=== PATIENT | male | born 1930 | race Caucasian/White ===

== ENCOUNTER 2017-10-14 13:52 | Inpatient (IN) | payer OTHER ==
[2017-10-14] MEDS ORDERED: NA CHLORIDE 0.9% 1,000 ML ONE (14:30)
--- NOTE | 2017-10-14 15:28 | RAD REPORT ---
EXAM DESCRIPTION: RAD - Chest Single View - 10/14/2017 2:34 pm CLINICAL HISTORY: COUGH Chest pain. COMPARISON: Chest Pa And Lat (2 Views) dated 01/22/2017; Chest Single View dated 09/18/2016; Chest Si ngle View dated 09/15/2016; Chest Single View dated 09/13/2016 FINDINGS: Portable technique limits examination quality. The lungs are mildly emphysematous but grossly clear The heart is normal in size. Single lead pacer d evice is in place. IMPRESSION: Mild COPD.
[2017-10-14 15:38] LABS: Absolute Lymphocytes (CBC) 0.4 K/uL (0.7-4.9); Absolute Monocytes 0.3 K/uL (0.1-1.3); Absolute Neutrophil 6.5 K/uL (1.8-8.0); Basophils % 0.3 % (0-1.3); Eosinophils % 0.2 % (0-4.4); Hematocrit 41.8 % (39.6-49.0); Lymphocytes % 4.9 % (15.3-44.8); MCH 32.2 pg (27.0-35.0); MCV 96.4 fL (80-100); MPV 9.7 fL (7.6-11.3); Monocytes % 3.8 % (3.3-12.3); Protime INR 1.07; RBC Red Blood Cell Count 4.34 M/uL (4.33-5.43)
--- NOTE | 2017-10-14 15:49 | ER ---
Nurse's Notes [facility] Name: Dez Lovett Age: 87 yrs Sex: Male : 1930 Arrival Date: 10/14/2017 Time: 13:54 Bed 24 Private MD: Mono Wheeler Diagnosis: Type 2 diabetes mellitus;Weakness;Vomiting;Chronic obstructive pulmonary disease, unspecified;Acute pancreatitis;Unspecified kidney failure;Cholelithiasis;Cholecystitis Presentation: 10/14 14:09 Presenting complaint: Patient states: vomiting, nausea, high blood sugar at home. ch started yesterday afternoon/evening. bgl at home was over 200. Transition of care: patient was not received from another setting of care. Onset of symptoms was October 13, 2017. Risk Assessment: Do you want to hurt yourself or someone else? Patient reports no desire to harm self or others. Initial Sepsis Screen: Does the patient meet any 2 criteria? No. Patient's initial sepsis screen is negative. Does the patient have a suspected source of infection? No. Patient's initial sepsis screen is negative. Care prior to arrival: None. 14:09 Method Of Arrival: Ambulatory 14:09 Acuity: GOYO 3 Triage Assessment: 14:12 General: Appears in no apparent distress. comfortable, Behavior is calm, cooperative, ch appropriate for age. Pain: Denies pain. Historical: - Allergies: 14:12 No Known Allergies; - Home Meds: 14:12 allopurinol 300 mg Oral tab [Active]; Furosemide Oral [Active]; Glipizide Oral ch [Active]; losartan Oral three times a week [Active]; aspirin 81 mg Oral chew 1 tab once daily [Active]; - PMHx: 14:12 Diabetes - NIDDM; Gout; Hypertension; ch - PSHx: 14:12 pacemaker; cataract; skin cancer; - Immunization history:: Adult Immunizations up to date. - Social history:: Smoking status: Patient/guardian denies using tobacco. - Ebola Screening: : Patient negative for fever greater than or equal to 101.5 degrees Fahrenheit, and additional compatible Ebola Virus Disease symptoms Patient denies exposure to infectious person Patient denies travel to an Ebola-affected area in the 21 days before illness onset No symptoms or risks identified at this time. - Family history:: not pertinent. Screenin:00 Abuse screen: Denies threats or abuse. Denies injuries from another. Nutritional kr2 screening: No deficits noted. Tuberculosis screening: No symptoms or risk factors identified. Fall Risk IV access (20 points). Assessment: 15:00 General: Appears in no apparent distress. comfortable, well groomed, well developed, kr2 well nourished, Behavior is calm, cooperative, appropriate for age. Pain: Denies pain. Neuro: Level of Consciousness is awake, alert, obeys commands, Oriented to person, place, time, situation. Cardiovascular: Capillary refill < 3 seconds in bilateral fingers Patient's skin is warm and dry. Respiratory: Airway is patent Respiratory effort is even, unlabored, Respiratory pattern is regular, symmetrical. GI: Abdomen is round non-distended, Bowel sounds present X 4 quads. Abd is soft and non tender X 4 quads. Reports nausea, vomiting, since this morning. : Denies burning with urination. EENT: Nares are clear bilaterally Oral mucosa is moist. Derm: Skin is fragile, with poor turgor Multiple small scabs to bilateral arms. Musculoskeletal: Circulation, motion, and sensation intact. 16:00 Reassessment: Assisted patient to bathroom, weakness and SOB noted with little kr2 exertion. Recovers quickly with rest. 16:29 Reassessment: Patient appears in no apparent distress at this time. Patient and/or kr2 family updated on plan of care and expected duration. Pain level reassessed. Patient is alert, oriented x 3, equal unlabored respirations, skin warm/dry/pink. Patient denies pain at this time. 17:25 Reassessment: Patient vomiting, change in mental status, unable to follow commands, kr2 garbled speech. Dr. Bahena at bedside. CT scan ordered. I escorted patient to CT via stretcher on O2 at [address] Whitten also updated. Blood glucose 177. 17:37 Reassessment: Patient returned to room, monitoring on, O2 in place. No distress. kr2 17:57 Reassessment: Patient appears in no apparent distress at this time. Patient and/or kr2 family updated on plan of care and expected duration. Pain level reassessed. Oriented to person and place, unable to verbalize birthdate. 19:28 Reassessment: Patient appears in no apparent distress at this time. Patient and/or kr2 family updated on plan of care and expected duration. Pain level reassessed. Family remains at bedside Patient denies pain at this time. Vital Signs: 14:12 BP 139 / 68; Pulse 69; Resp 20; Temp 99.7(O); Pulse Ox 98% on R/A; Weight 97.07 kg; ch Height 5 ft. 11 in. (180.34 cm); Pain 0/10; 15:30 BP 135 / 38; Pulse 68; Resp 17; Pulse Ox 97% on R/A; kr2 16:30 BP 120 / 69; Pulse 77; Resp 20; Pulse Ox 96% on R/A; kr2 17:40 BP 109 / 66; Pulse 77; Resp 19; Pulse Ox 93% on 2 lpm NC; kr2 18:30 BP 138 / 43; Pulse 78; Resp 19; Pulse Ox 99% on R/A; kr2 19:00 BP 140 / 64; Pulse 70; Resp 22; Temp 98.5; Pulse Ox 98% 2 lpm ; Pain 0/10; kr2 19:55 BP 128 / 74; Pulse 77; Resp 17; Pulse Ox 98% on R/A; kr2 14:12 Body Mass Index 29.85 (97.07 kg, 180.34 cm) ED Course: 13:54 Patient arrived in ED. sb2 13:55 Mono Wheeler MD is Private Physician. sb2 14:10 Yan Whitten MD is Attending Physician. [facility] 14:10 Triage completed. ch 14:12 Arm band placed on left wrist. Patient placed in an exam room, on a stretcher. ch 14:17 Lily Mistry, RN is Primary Nurse. kr2 14:30 Patient has correct armband on for positive identification. Bed in low position. Call kr2 light in reach. Side rails up X 1. Adult w/ patient. Pulse ox on. NIBP on. Head of bed elevated. 14:31 EKG done, by emergency dept tech. reviewed by Yan Whitten MD. at1 14:34 X-ray completed. Portable x-ray completed in exam room. Patient tolerated procedure jb2 well. 14:35 XRAY Chest (1 view) In Process Unspecified. EDMS 14:40 Inserted saline lock: 22 gauge in left antecubital area, using aseptic technique. Blood kr2 collected. 15:27 Lab(s) recollected, by me, sent to lab. kr2 15:42 Ania Bahena MD is Hospitalizing Provider. stacia 16:44 Urine Dipstick--Ancillary (enter results) Sent. rv 17:18 Linen changed. jp3 17:[address] vm2 17:50 Inserted saline lock: 22 gauge in left forearm, using aseptic technique. IV jp3 discontinued, intact, bleeding controlled, No redness/swelling at site. Pressure dressing applied, Patient would not stop bending arm; IV discontinued and moved to forearm. 18:36 CT completed. Patient tolerated procedure well. Patient taken to ultrasound. vm2 20:00 No provider procedures requiring assistance completed. kr2 20:00 Patient admitted, IV remains in place. kr2 Administered Medications: 14:46 Drug: NS 0.9% 1000 ml Route: IV; Rate: 1 bolus; Site: left antecubital; kr2 16:30 Follow up: Response: No adverse reaction; IV Status: Completed infusion kr2 17:25 Drug: Zofran 4 mg Route: IVP; Site: right antecubital; kr2 18:00 Follow up: Response: Vomiting decreased kr2 20:03 Follow up: Response: No adverse reaction kr2 19:17 Drug: Zosyn 3.375 grams Route: IVPB; Infused Over: 60 mins; Site: left antecubital; kr2 20:03 Follow up: IV Status: Infusion continued upon admission kr2 Point of Care Testing: Blood Glucose: 14:13 Blood Glucose: 228 mg/dL; ch 17:25 Blood Glucose: 171 mg/dL; jp3 Ranges: Outcome: 15:48 Decision to Hospitalize by Provider. stacia 20:06 Patient left the ED. kr2 20:32 Admitted to Med/surg accompanied by tech, family with patient, via stretcher, room 203, kr2 with oxygen, with chart, Report called to Cindy 20:32 Condition: stable 20:32 Instructed on need for admit, family at bedside Demonstrated understanding of instructions. Signatures: Dispatcher [employer] EDMS Chloe Welch RN RN ch Anderson, Corey, MD MD cha Buechter, Jesse jb2 Ariella Velarde, facilities director EKG Tat1 Rosamaria Childers 2 Lily Mistry RN RN kr2 Tena Camarena sb2 Cirilo Timmons RN RN rv Jethro Theodore jp3 Corrections: (The following items were deleted from the chart) 16:18 14:48 Oxygen administration via nasal cannula SpO2 87% kr2 kr2 17:45 17:25 Reassessment: Patient vomiting, change in mental status, unable to follow kr2 commands, garbled speech. Dr. Bahena at bedside. CT scan ordered. I escorted patient to CT via stretcher on O2 at 2 LPM via NC kr2
--- NOTE | 2017-10-14 15:49 | EDPHYS ---
Physician Documentation [facility] Name: Dez Lovett Age: 87 yrs Sex: Male : 1930 Arrival Date: 10/14/2017 Time: 13:54 Bed 24 Private MD: Mono Wheeler ED Physician Yan Whitten HPI: 10/14 15:40 This 87 yrs old Male presents to ER via Ambulatory with complaints of High stacia Blood Sugar. 15:40 The patient or guardian reports hyperglycemia. Onset: The symptoms/episode stacia began/occurred today, yesterday. Associated signs and symptoms: Pertinent positives: nausea, vomiting. Current symptoms: In the emergency department the patient's symptoms have improved, mildly. The patient has experienced similar episodes in the past, a few times. Historical: - Allergies: 14:12 No Known Allergies; ch - Home Meds: 14:12 allopurinol 300 mg Oral tab [Active]; Furosemide Oral [Active]; Glipizide Oral ch [Active]; losartan Oral three times a week [Active]; aspirin 81 mg Oral chew 1 tab once daily [Active]; - PMHx: 14:12 Diabetes - NIDDM; Gout; Hypertension; ch - PSHx: 14:12 pacemaker; cataract; skin cancer; ch - Immunization history:: Adult Immunizations up to date. - Social history:: Smoking status: Patient/guardian denies using tobacco. - Ebola Screening: : Patient negative for fever greater than or equal to 101.5 degrees Fahrenheit, and additional compatible Ebola Virus Disease symptoms Patient denies exposure to infectious person Patient denies travel to an Ebola-affected area in the 21 days before illness onset No symptoms or risks identified at this time. - Family history:: not pertinent. ROS: 15:40 Constitutional: Negative for fever, chills, and weight loss, Eyes: Negative for injury, stacia pain, redness, and discharge, ENT: Negative for injury, pain, and discharge, Neck: Negative for injury, pain, and swelling, Cardiovascular: Negative for chest pain, palpitations, and edema, Respiratory: Negative for shortness of breath, cough, wheezing, and pleuritic chest pain, Back: Negative for injury and pain, : Negative for injury, bleeding, discharge, and swelling, MS/Extremity: Negative for injury and deformity, Skin: Negative for injury, rash, and discoloration, Psych: Negative for depression, anxiety, suicide ideation, homicidal ideation, and hallucinations, Allergy/Immunology: Negative for hives, rash, and allergies, Endocrine: Negative for neck swelling, polydipsia, polyuria, polyphagia, and marked weight changes, Hematologic/Lymphatic: Negative for swollen nodes, abnormal bleeding, and unusual bruising. 15:40 Abdomen/GI: Positive for nausea and vomiting. 15:40 Neuro: Positive for weakness. Exam: 15:40 Constitutional: This is a well developed, well nourished patient who is awake, alert, stacia and in no acute distress. Head/Face: Normocephalic, atraumatic. Eyes: Pupils equal round and reactive to light, extra-ocular motions intact. Lids and lashes normal. Conjunctiva and sclera are non-icteric and not injected. Cornea within normal limits. Periorbital areas with no swelling, redness, or edema. ENT: Nares patent. No nasal discharge, no septal abnormalities noted. Tympanic membranes are normal and external auditory canals are clear. Oropharynx with no redness, swelling, or masses, exudates, or evidence of obstruction, uvula midline. Mucous membranes moist. Neck: Trachea midline, no thyromegaly or masses palpated, and no cervical lymphadenopathy. Supple, full range of motion without nuchal rigidity, or vertebral point tenderness. No Meningismus. Chest/axilla: Normal chest wall appearance and motion. Nontender with no deformity. No lesions are appreciated. Cardiovascular: Regular rate and rhythm with a normal S1 and S2. No gallops, murmurs, or rubs. Normal PMI, no JVD. No pulse deficits. Respiratory: Lungs have equal breath sounds bilaterally, clear to auscultation and percussion. No rales, rhonchi or wheezes noted. No increased work of breathing, no retractions or nasal flaring. Abdomen/GI: Soft, non-tender, with normal bowel sounds. No distension or tympany. No guarding or rebound. No evidence of tenderness throughout. Back: No spinal tenderness. No costovertebral tenderness. Full range of motion. Male : Normal genitalia with no discharge or lesions. Skin: Warm, dry with normal turgor. Normal color with no rashes, no lesions, and no evidence of cellulitis. MS/ Extremity: Pulses equal, no cyanosis. Neurovascular intact. Full, normal range of motion. Neuro: Awake and alert, GCS 15, oriented to person, place, time, and situation. Cranial nerves II-XII grossly intact. Motor strength 5/5 in all extremities. Sensory grossly intact. Cerebellar exam normal. Normal gait. Psych: Awake, alert, with orientation to person, place and time. Behavior, mood, and affect are within normal limits. Vital Signs: 14:12 BP 139 / 68; Pulse 69; Resp 20; Temp 99.7(O); Pulse Ox 98% on R/A; Weight 97.07 kg; ch Height 5 ft. 11 in. (180.34 cm); Pain 0/10; 15:30 BP 135 / 38; Pulse 68; Resp 17; Pulse Ox 97% on R/A; kr2 16:30 BP 120 / 69; Pulse 77; Resp 20; Pulse Ox 96% on R/A; kr2 17:40 BP 109 / 66; Pulse 77; Resp 19; Pulse Ox 93% on 2 lpm NC; kr2 18:30 BP 138 / 43; Pulse 78; Resp 19; Pulse Ox 99% on R/A; kr2 19:00 BP 140 / 64; Pulse 70; Resp 22; Temp 98.5; Pulse Ox 98% 2 lpm ; Pain 0/10; kr2 19:55 BP 128 / 74; Pulse 77; Resp 17; Pulse Ox 98% on R/A; kr2 14:12 Body Mass Index 29.85 (97.07 kg, 180.34 cm) MDM: 14:12 Patient medically screened. [facility] 15:40 Data reviewed: vital signs, nurses notes, lab test result(s), EKG, radiologic studies, stacia plain films. 10/14 14:12 Order name: Basic Metabolic Panel; Complete Time: 18:18 [facility] 10/14 14:12 Order name: CBC with Diff; Complete Time: 19:41 [facility] 10/14 14:12 Order name: Ckmb; Complete Time: 18:18 [facility] 10/14 14:12 Order name: CPK; Complete Time: 18:18 [facility] 10/14 14:12 Order name: LFT's; Complete Time: 18:18 [facility] 10/14 14:12 Order name: Magnesium; Complete Time: 18:18 [facility] 10/14 14:12 Order name: NT PRO-BNP; Complete Time: 18:18 [facility] 10/14 14:12 Order name: PT-INR; Complete Time: 15:54 [facility] 10/14 14:12 Order name: Ptt, Activated; Complete Time: 15:54 [facility] 10/14 14:12 Order name: Troponin (emerg Dept Use Only); Complete Time: 18:18 [facility] 10/14 14:12 Order name: Lipase; Complete Time: 18:18 [facility] 10/14 14:12 Order name: Urine Culture [facility] 10/14 14:12 Order name: Blood Culture Adult (2) [facility] 10/14 15:32 Order name: Glucose, Ancillary Testing; Complete Time: 15:35 [facility] 10/14 14:12 Order name: XRAY Chest (1 view); Complete Time: 15:35 [facility] 10/14 14:12 Order name: EKG; Complete Time: 14:13 [facility] 10/14 14:12 Order name: Cardiac monitoring; Complete Time: 14:48 [facility] 10/14 14:12 Order name: EKG - Nurse/Tech; Complete Time: 14:48 [facility] 10/14 15:48 Order name: CBC Smear Scan; Complete Time: 19:41 [facility] 10/14 16:11 Order name: Urine Dipstick--Ancillary (enter results) 10/14 16:43 Order name: Urine Dipstick-Ancillary; Complete Time: 16:55 [facility] 10/14 18:04 Order name: CT Head Brain wo Cont rv 10/14 18:21 Order name: US Abdomen Limited [facility] 10/14 18:21 Order name: CT Abd/Pelvis - W/Contrast [facility] 10/14 18:25 Order name: CT; Complete Time: 18:44 [facility] 10/14 18:58 Order name: CT; Complete Time: 19:41 [facility] 10/14 19:03 Order name: US; Complete Time: 19:41 [facility] 10/14 14:12 Order name: IV Saline Lock; Complete Time: 14:48 [facility] 10/14 14:12 Order name: Labs collected and sent; Complete Time: 14:48 [facility] 10/14 14:12 Order name: O2 Per Protocol; Complete Time: 14:48 [facility] 10/14 14:12 Order name: O2 Sat Monitoring; Complete Time: 14:48 [facility] 10/14 14:12 Order name: Urine Dipstick-Ancillary (obtain specimen); Complete Time: 16:17 [facility] 10/14 15:04 Order name: Labs - recollect needed; Complete Time: 15:26 bd Administered Medications: 14:46 Drug: NS 0.9% 1000 ml Route: IV; Rate: 1 bolus; Site: left antecubital; kr2 16:30 Follow up: Response: No adverse reaction; IV Status: Completed infusion kr2 17:25 Drug: Zofran 4 mg Route: IVP; Site: right antecubital; kr2 18:00 Follow up: Response: Vomiting decreased kr2 20:03 Follow up: Response: No adverse reaction kr2 19:17 Drug: Zosyn 3.375 grams Route: IVPB; Infused Over: 60 mins; Site: left antecubital; kr2 20:03 Follow up: IV Status: Infusion continued upon admission kr2 Point of Care Testing: Blood Glucose: 14:13 Blood Glucose: 228 mg/dL; 17:25 Blood Glucose: 171 mg/dL; jp3 Ranges: Critical Glucose Levels:Adult <50 mg/dl or >400 mg/dl <40 mg/dl or >180 mg/dl Disposition: 10/14/17 15:48 Hospitalization ordered by Ania Bahena for Observation. Preliminary diagnosis are Type 2 diabetes mellitus, Weakness, Vomiting, Chronic obstructive pulmonary disease, unspecified, Acute pancreatitis, Unspecified kidney failure, Cholelithiasis, Cholecystitis. - Bed requested for Telemetry/MedSurg (observation). - Status is Observation. kr2 - Condition is Fair. - Problem is new. - Symptoms have improved. UTI on Admission? No Signatures: Dispatcher [employer] EDMS Kady Garrett Christina, RN RN Yan Whitten MD MD cha Reaves, Karey, RN RN kr2 Corrections: (The following items were deleted from the chart) 15:50 15:48 Hospitalization Ordered by Ania Bahena MD for Observation. Preliminary [facility] diagnosis is Type 2 diabetes mellitus; Weakness; Vomiting. Bed requested for Telemetry/MedSurg (observation). Status is Observation. Condition is Fair. Problem is new. Symptoms have improved. UTI on Admission? No. stacia 18:22 15:50 10/14/2017 15:48 Hospitalization Ordered by Ania Bahena MD for Observation. stacia Preliminary diagnosis is Type 2 diabetes mellitus; Weakness; Vomiting; Chronic obstructive pulmonary disease, unspecified. Bed requested for Telemetry/MedSurg (observation). Status is Observation. Condition is Fair. Problem is new. Symptoms have improved. UTI on Admission? No. stacia 18:47 18:22 10/14/2017 15:48 Hospitalization Ordered by Ania Bahena MD for Observation. bd Preliminary diagnosis is Type 2 diabetes mellitus; Weakness; Vomiting; Chronic obstructive pulmonary disease, unspecified; Acute pancreatitis; Unspecified kidney failure. Bed requested for Telemetry/MedSurg (observation). Status is Observation. Condition is Fair. Problem is new. Symptoms have improved. UTI on Admission? No. stacia 19:42 18:47 10/14/2017 15:48 Hospitalization Ordered by Ania Bahena MD for Observation. stacia Preliminary diagnosis is Type 2 diabetes mellitus; Weakness; Vomiting; Chronic obstructive pulmonary disease, unspecified; Acute pancreatitis; Unspecified kidney failure. Bed requested for Telemetry/MedSurg (observation). Status is Observation. Condition is Fair. Problem is new. Symptoms have improved. UTI on Admission? No. bd 20:06 19:42 10/14/2017 15:48 Hospitalization Ordered by Ania Bahena MD for Observation. kr2 Preliminary diagnosis is Type 2 diabetes mellitus; Weakness; Vomiting; Chronic obstructive pulmonary disease, unspecified; Acute pancreatitis; Unspecified kidney failure; Cholelithiasis; Cholecystitis. Bed requested for Telemetry/MedSurg (observation). Status is Observation. Condition is Fair. Problem is new. Symptoms have improved. UTI on Admission? No. stacia
[2017-10-14] MEDS ORDERED: GLUCAGON 1 MG/VIAL IM PRN (15:54)
[2017-10-14] MEDS: INSULIN -REGULAR HUMAN 50 UNIT/0.5 ML ML SQ SCH ×2 (16:30→21:00)
[2017-10-14 16:43] LABS: Urine Blood NEGATIVE (NEG); Urine Glucose NEGATIVE (NEG); Urine Protein NEGATIVE (NEG); Urine Specific Gravity 1.015 (1.005-1.030); Urine pH 5.5 (5.0-7.0)
--- NOTE | 2017-10-14 16:59 | EKG ---
Test Date: 2017-10-14 Test Time: 14:24:50 Pediatric Psychiatrist: MIRIAN MEASUREMENT RESULTS: Intervals: Rate: 70 MN: QRSD: 178 QT: 416 QTc: 449 [place]: P: MN: QRS: -73 T: 102 INTERPRETIVE STATEMENTS: Electronic ventricular pacemaker Compared to ECG 12/12/2016 13:48:32 No significant changes Electronically Signed On 10-14-17 16:58:53 CDT by Dung Childress
[2017-10-14] MEDS ORDERED: ONDANSETRON 4 MG/2 ML VIAL ONE (17:10)
[2017-10-14 17:21] LABS: ALT/SGPT 154 U/L (12-78); AST/SGOT 205 U/L (15-37); Albumin 3.2 g/dL (3.4-5.0); Alkaline Phosphatase 148 U/L (45-117); BUN Blood Urea Nitrogen 33 mg/dL (7-18); Bicarbonate 28 mmol/L (21-32); Bilirubin Direct 2.1 mg/dL (0-0.2); Bilirubin Total 3.1 mg/dL (0.2-1.0); CKMB Creatine Kinase MB < 1.0 ng/mL (0.3-3.6); Creatine Phosphokinase 54 U/L (39-308); Glucose Level 230 mg/dL (74-106); Lipase 9639 U/L (73-393); Magnesium 1.9 mg/dL (1.8-2.4); NT PRO-BNP 1171 pg/mL (<450); Potassium 4.4 mmol/L (3.5-5.1); Protein, Total 7.6 g/dL (6.4-8.2); Sodium Level 138 mmol/L (136-145)
--- NOTE | 2017-10-14 18:24 | RAD REPORT ---
EXAM DESCRIPTION: CT - Head Brain Wo Cont - 10/14/2017 6:11 pm CLINICAL HISTORY: MENTAL STATUS CHANGE Hypertension, headache COMPARISON: Rad Therapy Fld [facility] Head dated 01/04/2016; Rad Therapy [place] [facility] Head dated 12/27/2015; Head C Spine Cap Wo Con dated 12/12/2016 TECHNIQUE: All CT scans are performed using dose optimization technique as appropriate and may inclu de automated exposure control or mA/KV adjustment according to patient size. FINDINGS: No intracranial hemorrhage, hydrocephalus or extra-axial fluid collection.Moderate general ized brain atrophy is present with moderate periventricular and deep white matter chronic microvascul ar ischemic changes.No areas of brain edema or evidence of midline shift. The paranasal sinuses and mastoids are clear. The calvarium is intact. IMPRESSION: No acute intracranial abnormality.
--- NOTE | 2017-10-14 18:54 | P.HP ---
Certification for Inpatient Patient admitted to: Inpatient With expected LOS: >2 Midnights Patient will require the following post-hospital care: None Practitioner: I am a practitioner with admitting privileges, knowledge of patient current condition, hospital course, and medical plan of care. Services: Services provided to patient in accordance with Admission requirements found in Title 42 Section 412.3 of the Code of Federal Regulations Patient History Date of Service: 10/15/17 Reason for admission: Nausea/Vomitting History of Present Illness: This is a 87-year-old male with significant past medical history presented to the ED complaining of having some nausea vomiting abdominal pain that started about 2-3 days ago and has been getting progressively worse. Patient at the time of examination questioning was altered and was unable to provide any information most of the history was collected by the son and the daughter-in- law at bedside. Son at the bedside states that his dad lives by himself at the house that usually is able to care for himself and has been having meals with the family for past 6-4 weeks. Patient family stated that he has been having some nausea and vomiting in about 2-3 weeks that has been getting progressively worse. Patient did have a low-grade fever at the house as well. No chills were noted. Patient has no other change in health status recently aside from stopping his aspirin to get his surgery done for drooped eye lids. Patient denied having any other complaints. Family denied patient having any chest pain shortness of breath headaches vision changes or any other associated symptoms. 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 eye cataract removal -: Squamous cell removal L. side temporal -: Skin CA removal R. nostril - Family History Brother History Unknown: Yes -: Diabetes Notes: due to fall last week Mother History Unknown: Yes -: Diabetes Notes: deseased - Social History Alcohol use: Yes CD- Drugs: No Caffeine use: Yes Review of Systems 10-point ROS is otherwise unremarkable General: As per HPI Physical Examination - Physical Exam General: Alert, In no apparent distress HEENT: Atraumatic, PERRLA, Mucous membr. moist/pink, EOMI, Sclerae nonicteric Neck: Supple, 2+ carotid pulse no bruit, No LAD, Without JVD or thyroid abnormality Respiratory: Clear to auscultation bilaterally, Normal air movement Cardiovascular: Regular rate/rhythm, Normal S1 S2 Gastrointestinal: Normal bowel sounds, Soft and benign, Non-distended, Tenderness Musculoskeletal: No tenderness Integumentary: No rashes Neurological: Normal gait, Normal speech, Normal strength at 5/5 x4 extr, Normal tone, Normal affect Lymphatics: No axilla or inguinal lymphadenopathy - Studies Laboratory Data (last 24 hrs) 10/14/17 15:20: PT 12.6 H, INR 1.07, APTT 25.3 10/14/17 15:20: WBC 7.2, Hgb 14.0, Hct 41.8, Plt Count 192 10/14/17 15:20: Sodium 138, Potassium 4.4, BUN 33 H, Creatinine 1.90 H, Glucose 230 H, Magnesium 1.9, Total Bilirubin 3.1 H, AST 205 H, ALT 154 H, Alkaline Phosphatase 148 H, Lipase 9639 H Assessment and Plan - Problems (Diagnosis) (1) Pancreatitis Onset Date: 10/15/17 Current Visit: Yes Status: Acute Plan: Acute Pancreatitis with elevated liver Function -NPO, IV fluids -GI consulted. 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 use: without fdc use Diabetes mellitus complication status: without complication Qualified Code(s): E11.9 - Type 2 diabetes mellitus without complications (4) HTN (hypertension) Onset Date: 09/17/16 Current Visit: No Status: Chronic Qualifiers: Hypertension type: essential hypertension Qualified Code(s): I10 - Essential (primary) hypertension Discharge Plan: Home Plan to discharge in: 72 Hours - Advance Directives Does patient have a Living Will: Yes Does patient have a Durable POA for Healthcare: No - Code Status/Comfort Care Code Status Assessed: Yes Code Status: Do Not Resuscitate Critical Care: No
--- NOTE | 2017-10-14 18:58 | RAD REPORT ---
EXAM DESCRIPTION: CT - Abdomen Pelvis Wo Contrast - 10/14/2017 6:40 pm CLINICAL HISTORY: Abdominal pain. ABD PAIN COMPARISON: Head C Spine Cap Wo Con dated 12/12/2016 TECHNIQUE: CT imaging of the abdomen and pelvis was performed without contrast. Solid organ, bowel a nd vascular assessment is limited due to lack of IV and oral contrast. All CT scans are performed using dose optimization technique as appropriate and may include automated exposure control or mA/KV adjustment according to patient size. FINDINGS: Motion degraded study is submitted, limiting detail. The inferior lung dave are emphysematous. The liver, spleen, adrenal glands and kidneys are within normal limits for a limited non-contrast exa mination.Prominent fatty atrophy of the pancreas noted. Punctate calcifications also likely present s uggesting chronic pancreatitis. No bowel obstruction, free air, free fluid or abscess. Aortic atherosclerosis. The appendix is normal . Small fat containing umbilical hernia. Significant thickening of the urinary bladder is seen with m ultiple cystic areas within the wall suggesting underlying cystitis cystica. Prominent lumbar degenerative changes are present. IMPRESSION: Bladder wall thickening is noted with findings suspicious for cystitis cystica. A limited non-contrast examination was performed as detailed.
[2017-10-14] MEDS: PIPER/TAZO/NS 3.375gm 3.375 GM/100 ML BAG IVPB SCH (19:00)
--- NOTE | 2017-10-14 19:03 | RAD REPORT ---
EXAM DESCRIPTION: US - Abdomen Exam Limited - 10/14/2017 6:55 pm CLINICAL HISTORY: ABD PAIN COMPARISON: Renal Ultrasound-Complete dated 09/10/2016 FINDINGS: The gallbladder demonstrates shadowing gallstones. No pericholecystic fluid or gallbladder wall thickening. The common bile duct is normal measuring 5 mm. The liver demonstrates no findings of intrahepatic biliary dilatation. IMPRESSION: Cholelithiasis.
[2017-10-14] MEDS ORDERED: PIPER/TAZO/NS 3.375gm 3.375 GM/100 ML BAG ONE (19:12)
[2017-10-14 19:36] LABS: Blood Morphology Comment NOT SEEN (NOT SEEN); Platelet Estimate ADEQ; Urine White Blood Cell Casts OK
[2017-10-14] MEDS ORDERED: ONDANSETRON 4 MG/2 ML VIAL IV PRN (20:18)
[2017-10-14] MEDS: IPRATROPIUM BROM 0.5MG/2.5ML NEB SCH (20:18)
[2017-10-14] MEDS: ALBUTEROL 2.5 MG/3 ML NEB SOL NEB SCH (20:18)
[2017-10-14] MEDS: NA CHLORIDE 0.9% 1,000 ML IV SCH (20:57)
[2017-10-14 23:18] LABS: Urine Appearance CLEAR; Urine Blood NEGATIVE (NEG); Urine Color ORANGE; Urine Glucose NEGATIVE (NEG); Urine Protein TRACE (NEG)
[2017-10-14 23:28] LABS: Urine Bilirubin NEGATIVE (NEG); Urine Microscopic Reflex ORDER UMIC
[2017-10-15] MEDS ORDERED: PIPER/TAZO/NS 3.375gm 6.750 GM/200 ML BAG ONE (00:01)
[2017-10-15] MEDS: PIPER/TAZO/NS 3.375gm 3.375 GM/100 ML BAG IVPB SCH ×5 (00:06→23:36)
[2017-10-15 00:12] LABS: Urine Bacteria <20 /HPF (NONE SEEN); Urine RBC NONE SEEN /HPF (NONE SEEN)
[2017-10-15 00:13] LABS: Urine Culture Reflex Order NOT NEEDED
[2017-10-15] MEDS: IPRATROPIUM BROM 0.5MG/2.5ML NEB SCH ×4 (02:57→20:26)
[2017-10-15] MEDS: ALBUTEROL 2.5 MG/3 ML NEB SOL NEB SCH ×4 (02:57→20:26)
[2017-10-15] MEDS: NA CHLORIDE 0.9% 1,000 ML IV SCH ×2 (05:06→17:00)
[2017-10-15 05:43] LABS: Absolute Monocytes 0.6 K/uL (0.1-1.3); Basophils % 0.1 % (0-1.3); Eosinophils % 0.5 % (0-4.4); Hematocrit 35.7 % (39.6-49.0); Lymphocytes % 20.7 % (15.3-44.8); MCH 32.9 pg (27.0-35.0); MPV 9.8 fL (7.6-11.3); Monocytes % 6.2 % (3.3-12.3); RBC Red Blood Cell Count 3.72 M/uL (4.33-5.43)
[2017-10-15] MEDS: D50W 25 GM/50 ML SYRINGE IV PRN ×3 (05:46→23:43)
[2017-10-15 05:47] LABS: Protime INR 1.23
[2017-10-15] MEDS: INSULIN -REGULAR HUMAN 50 UNIT/0.5 ML ML SQ SCH ×2 (06:00)
[2017-10-15 06:11] LABS: Albumin 2.7 g/dL (3.4-5.0); Bilirubin Total 4.9 mg/dL (0.2-1.0); Magnesium 1.9 mg/dL (1.8-2.4); Phosphorus 3.1 mg/dL (2.5-4.9); Potassium 3.7 mmol/L (3.5-5.1); Protein, Total 6.2 g/dL (6.4-8.2)
[2017-10-15] MEDS: KCL 20 MEQ/100 mL IVPB 20 MEQ/100 ML BAG IV SCH ×2 (07:00→11:33)
[2017-10-15] MEDS ORDERED: ASPIRIN 81 MG CHEWABLE TABLET PO SCH (09:00)
[2017-10-15] MEDS ORDERED: ENOXAPARIN 40 MG/0.4 ML SQ SCH (09:00)
[2017-10-15] MEDS ORDERED: NA CHLORIDE 0.9% 500 ML IV ONE (09:44)
[2017-10-15] MEDS ORDERED: INSULIN -REGULAR HUMAN 50 UNIT/0.5 ML ML SQ SCH (11:30)
[2017-10-15] MEDS ORDERED: Ringers Lactate 1,000 ML IV ONE (11:48)
--- NOTE | 2017-10-15 11:59 | P.PN ---
Subjective Date of Service: 10/15/17 Primary Care Provider: Dr Bahena Chief Complaint: N/V Pt seen and examined at bedside. Chart Reviewed Case DW with GI and General Surgery -NPO for now -ERCP scheduled for today -Overnight No C.o Offer and today he is doing well Review of Systems General: As per HPI Physical Examination - Vital Signs Temperature: 97.6 F Blood Pressure: 129/60 Pulse: 74 Respirations: 18 Pulse Ox (%): 99 - Physical Exam General: Alert, In no apparent distress HEENT: Atraumatic, PERRLA, EOMI Neck: Supple, JVD not distended Respiratory: Clear to auscultation bilaterally, Normal air movement Cardiovascular: Regular rate/rhythm, Normal S1 S2 Gastrointestinal: Normal bowel sounds, Soft and benign, Non-distended, Tenderness (Generalized Tenderness) Musculoskeletal: No tenderness Integumentary: No rashes Neurological: Normal speech, Normal tone, Normal affect Lymphatics: No axilla or inguinal lymphadenopathy - Studies Laboratory Data (last 24 hrs) 10/14/17 15:20: PT 12.6 H, INR 1.07, APTT 25.3 10/14/17 15:20: WBC 7.2, Hgb 14.0, Hct 41.8, Plt Count 192 10/14/17 15:20: Sodium 138, Potassium 4.4, BUN 33 H, Creatinine 1.90 H, Glucose 230 H, Magnesium 1.9, Total Bilirubin 3.1 H, AST 205 H, ALT 154 H, Alkaline Phosphatase 148 H, Lipase 9639 H Medications List Reviewed: Yes Assessment & Plan - Problems (Diagnosis) (1) Pancreatitis Onset Date: 10/15/17 Current Visit: Yes Status: Acute Plan: Acute Pancreatitis with elevated liver Function most likely gallstone Induced Pancreatits -NPO, IV fluids and pain mgmt -GI consulted. Appreciate Reccs -Abd US and CT with cholelithaisis -ERCP scheduled with GI today -IV zosyn for now Qualifiers: Chronicity: acute Pancreatitis type: biliary Acute pancreatitis complication: uninfected necrosis Qualified Code(s): K85.11 - Biliary acute pancreatitis with uninfected necrosis (2) Cholelithiasis Current Visit: Yes Status: Acute Plan: Cholelithiasis with possible obsutruction -Planned for ERCP today -Surgery Consulted for removal in 24 - 48 hrs -Will get Cardiology for clearance Qualifiers: Cholelithiasis location: gallbladder Cholecystitis presence: without cholecystitis Biliary obstruction: with biliary obstruction Qualified Code(s ): K80.21 - Calculus of gallbladder without cholecystitis with obstruction (3) Atrial fibrillation Onset Date: 09/17/16 Current Visit: No Status: Chronic Qualifiers: Atrial fibrillation type: chronic (4) Diabetes Onset Date: 09/17/16 Current Visit: No Status: Chronic Qualifiers: Diabetes mellitus type: type 2 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
[2017-10-15] MEDS ORDERED: GENTAMICIN SULF 80 MG/2ML INJ ONE (12:06)
[2017-10-15] MEDS ORDERED: PROPOFOL 200 MG/20 ML VIAL IV ONE (12:09)
[2017-10-15] MEDS ORDERED: GLYCOPYRROLATE 0.2 MG/ML SYR ONE (12:10)
[2017-10-15] MEDS ORDERED: NS 0.9% VIAL 10 ML ONE (12:48)
[2017-10-15] MEDS ORDERED: Phenylephrine HCl 10 MG/ML 1 ML VIAL ONE (12:48)
[2017-10-15] MEDS ORDERED: GLUCAGON 1 MG/VIAL ONE (13:07)
--- NOTE | 2017-10-15 13:27 | ENDO RPT ---
[address], [address] ERCP PROCEDURE REPORT EXAM DATE: 10/15/2017 PATIENT NAME: Dez Lovett MR #: [id number] BIRTHDATE: 1930 ATTENDING: Baljeet Booker Dr STATUS: inpatient - 7 PIANO MOVER: Nilda Keller and Cherelle Victor RN INDICATIONS: The patient is a 87 yr old Male here for an ERCP due to gallstone pancreatitis, abnormal Liver Function Tests, abnormal imaging, and abdominal pain PROCEDURE PERFORMED: ERCP, Diagnostic MEDICATIONS: Per Anesthesia. CONSENT: The patient understands the risks and benefits of the procedure and understands that these risks include, but are not limited to: sedation, allergic reaction, infection, perforation and/or bleeding. Alternative means of evaluation and treatment include, among others: physical exam, x-rays, and/or surgical intervention. The patient elects to proceed with this endoscopic procedure. DESCRIPTION OF PROCEDURE: During intra-op preparation period all mechanical medical equipment was checked for proper function. Hand hygiene and appropriate measures for infection prevention was taken. Procedure, possible complications, and alternatives including but not limited to the possibility of bleeding, perforation, tear, infection, sepsis, need for surgery, need for blood transfusion, and anesthesia related complications were explained to the patient. In addition, 5-30% incidence of acute pancreatitis as a result of ERCP were explained. After the risks, benefits and alternatives of the procedure were thoroughly explained, Informed was verified, confirmed and timeout was successfully executed by the treatment team. With the patient in left semi-prone position, medications were administered intravenously.The [id number] ([id number]) was passed from the mouth into the esophagus and further advanced from the esophagus into the stomach. From stomach scope was directed to the second portion of the duodenum. Major papilla was aligned with the duodenoscope. The scope position was confirmed fluoroscopically. Rest of the findings/therapeutics are given below. The scope was then completely withdrawn from the patient and the procedure completed. The pulse, BP, and O2 saturation were monitored and documented by the physician and the nursing staff throughout the entire procedure. The patient was cared for as planned according to standard protocol. The patient was then discharged to recovery in stable condition and with appropriate post procedure care. Cannulation of the common bile duct was accomplished. The common bile duct was normal without filling defects, or stones. in the common bile duct. A stricture was found at major papilla with small amount of blood, indicative of possible stone passage. ADVERSE EVENT: IMPRESSIONS: 1. Cannulation of the common bile duct was accomplished. The common bile duct was normal without filling defects, or stones. 2. A mild stricture at the major papilla, making cannulation difficult, with small amount of blood, indicative of possible stone passage RECOMMENDATIONS: 1. antibiotics 2. cholecystectomy as per surgery REPEAT EXAM: Baljeet Booker Dr eSigned: Baljeet Booker Dr 10/15/2017 1:26 PM cc: CPT CODES: ICD9 CODES: PATIENT NAME: Dez Lovett MR#: [id number]
--- NOTE | 2017-10-15 13:52 | RAD REPORT ---
EXAM DESCRIPTION: RAD - Fluoroscopy ERCP - 10/15/2017 1:35 pm FINDINGS: Fluoro time was 6 minutes 24 seconds. There were 4 portable C-arm views submitted from the fluoroscopic assisted ERCP. Assessment is very limited when only selected static images are available. Correlation is needed with findings during real-time evaluation.
--- NOTE | 2017-10-15 18:10 | CON ---
Date of Consultation: 10/15/2017 Brief History Of Present Illness: The patient is an 87-year-old male who presents to the hospital pa th approximately 3 to 4 days of persistent nausea and vomiting. He states he did not have significan t pain until after the nausea and vomiting, which is a sort of global epigastric abdominal pain. He feels it was more associated with the heaving and retching than pain necessarily caused from intraabd ominal source. He states that it was more of a sore muscular type pain. He has never had similar ep isodes before in the past. He did have some subjective chills and fever. No other associated compla ints. Past Medical History: Significant for cardiac disease; kidney disease; diabetes; skin cancer; retina l infection, right eye. Past Surgical History: Includes skin cancer removal on multiple sites including the skin of the left scalp, right nostril, pacemaker insertion, and left cataract surgery. Home Medications: Include allopurinol, Lasix, Cozaar, pioglitazone, glipizide, Brovana, Atrovent, De ltasone. Allergies: NO KNOWN DRUG ALLERGIES. Social History: He denies smoking, alcohol, or recreational drug use. Review of Systems: Ten-point review of systems, other than HPI, he currently only complains of a dry mouth. Physical Examination: Vital Signs: At the time of my examination, his BMI is 29.4. His blood pressure is 102/54, pulse 70 , respiratory rate 17, temperature 97.9. General: He is awake, alert, and oriented. Psychiatric: He is appropriate and conversive. HEENT: Normocephalic. Sclerae anicteric. Mucous membranes are moist. Oropharynx is clear. He has some conjunctival injection to the right eye and some slight discoloration of the sclerae. I do not believe this is icterus or jaundice, rather just scleral discoloration, slight yellowing in one eye. Neck: Supple. No JVD. Chest: Normal expansion and excursion. Cardiovascular: Regular rate and rhythm. Pulmonary: Clear to auscultation bilaterally. Abdomen: Soft, nontender, nondistended. No rebound. No guarding. No focal peritonitis. Navas si gn is negative. Extremities: No clubbing, cyanosis, or edema. Skin: Warm and dry, but he has multiple lesions on bilateral upper extremities consistent with small itching, scratching type wounds. Laboratory Data: Reveals a white blood count of 9.7, hemoglobin 12.2, hematocrit of 35.7, platelet c ount 148. His PT was 14.5, INR 1.23, PTT is 26.4. His sodium was 144, potassium 3.7, chloride 106, carbon dioxide 31, BUN 35, creatinine 2.1, glucose was 150 in the last check. His phosphorus was 3.1 , magnesium was 4.9, total bilirubin was 1.9, direct component was 2.1. His bilirubin is up from 3.1 on admission. AST 162, ALT 162, alkaline phosphatase 136. His lipase on admission was 9300, curren tly is 2301. His amylase is 399. His UA showed 2+ urobilinogen, trace leukocyte esterase, 5-10 whit e blood cells. He had imaging performed, which included a CT scan of the abdomen and pelvis and abdo gely ultrasound. The abdominal ultrasound was officially read as cholelithiasis. No pericholecysti c fluid or gallbladder wall thickening. Common duct is normal measuring 5 mm. Liver demonstrates no intrahepatic biliary ductal dilatation. CT scan of the abdomen and pelvis was officially read as we ll. Bladder wall thickening is noted with findings suspicious for cystitis cystica. Assessment And Plan: This is an 87-year-old gentleman who comes in with pancreatitis, likely gallsto ne pancreatitis. 1.IV fluid hydration. 2.Antibiotic coverage. 3.GI consultation for possible endoscopic retrograde cholangiopancreatography. 4.I have explained the risks, benefits, and alternatives of laparoscopic, possible open cholecystect nathan including, but not limited to bleeding, infection, damage to surrounding tissues, injury to bile ducts, intestines, need for further operation or procedures. The patient agrees to proceed as indica angie. We will get cardiac clearance prior to surgical intervention. If the patient is an optical surgical candidate, we will consider surgery tomorrow. NPO after midnight for patient. DARRELL/ALEXIS Voice ID: [id number] Report ID: [id number]
[2017-10-16] MEDS: IPRATROPIUM BROM 0.5MG/2.5ML NEB SCH ×4 (01:23→19:40)
[2017-10-16] MEDS: ALBUTEROL 2.5 MG/3 ML NEB SOL NEB SCH ×4 (01:23→19:40)
[2017-10-16] MEDS: NA CHLORIDE 0.9% 1,000 ML IV SCH ×3 (03:00→21:08)
[2017-10-16] MEDS: PIPER/TAZO/NS 3.375gm 3.375 GM/100 ML BAG IVPB SCH ×2 (05:03→17:00)
[2017-10-16 05:17] LABS: Absolute Lymphocytes (CBC) 0.6 K/uL (0.7-4.9); Absolute Monocytes 0.3 K/uL (0.1-1.3); Absolute Neutrophil 4.3 K/uL (1.8-8.0); Basophils % 0.3 % (0-1.3); Hematocrit 33.7 % (39.6-49.0); Lymphocytes % 11.5 % (15.3-44.8); MCH 32.7 pg (27.0-35.0); MCV 97.6 fL (80-100); Monocytes % 6.1 % (3.3-12.3); RBC Red Blood Cell Count 3.45 M/uL (4.33-5.43)
[2017-10-16 05:34] LABS: Albumin 2.4 g/dL (3.4-5.0); Bilirubin Total 4.5 mg/dL (0.2-1.0); Magnesium 1.9 mg/dL (1.8-2.4); Potassium 4.1 mmol/L (3.5-5.1); Protein, Total 5.9 g/dL (6.4-8.2)
[2017-10-16] MEDS: D50W 25 GM/50 ML SYRINGE IV PRN (06:09)
[2017-10-16 06:33] VITALS: BMI 29.5
[2017-10-16] MEDS ORDERED: BUPIVACA 0.25%/EPI 0.0005% MDV 50 ML VIAL ONE (09:57)
[2017-10-16] MEDS ORDERED: PROPOFOL 200 MG/20 ML VIAL IV ONE (10:08)
[2017-10-16] MEDS ORDERED: FENTANYL CITR 100 MCG/2 ML ONE (10:08)
[2017-10-16] MEDS ORDERED: LIDOCAINE 1% MPF 5 ML VIAL ONE (10:08)
[2017-10-16] MEDS ORDERED: ROCURONIUM 50 MG/5 ML VIAL IV ONE (10:23)
[2017-10-16] MEDS ORDERED: ETOMIDATE 20 MG/10 ML VIAL IV ONE (10:36)
[2017-10-16] MEDS ORDERED: LANO/MINERAL OIL/PETRO 3.5 GM ONE (10:37)
--- NOTE | 2017-10-16 11:12 | P.OP ---
Transcribing Machine Mechanic: Telma Bobo Preoperative diagnosis: Gallstone Pancreatitis Postoperative diagnosis: Gallstone Pancreatitis Primary procedure: Laparoscopic Cholecystectomy Anesthesia: GETA + Local Estimated blood loss: <10cc Specimen: Gallbladder Findings: Acute Inflammation of Gallbladder Complications: None Transferred to: Recovery Room Condition: Good
[2017-10-16] MEDS ORDERED: GLYCOPYRROLATE 0.2 MG/ML SYR ONE (11:17)
[2017-10-16] MEDS ORDERED: NEOSTIGMINE 1 MG/ML -5 ML SYRINGE ONE (11:21)
[2017-10-16] MEDS ORDERED: ONDANSETRON 4 MG/2 ML VIAL ONE (11:34)
[2017-10-16] MEDS ORDERED: PROMETHAZINE 25 MG/ML VIAL ONE (11:58)
--- NOTE | 2017-10-16 12:58 | P.PN ---
Subjective Date of Service: 10/16/17 Primary Care Provider: Dr Bahena Chief Complaint: Nausea/Vomitting Pt seen and examined at bedside. Chart Reviewed Case DW with GI and General Surgery -NPO for now -Scheduled for OR procedure today -Overnight No C.o Offer and today he is doing well Review of Systems General: As per HPI Physical Examination - Vital Signs Temperature: 98.4 F Blood Pressure: 130/57 Pulse: 74 Respirations: 18 Pulse Ox (%): 99 - Physical Exam General: Alert, In no apparent distress HEENT: Atraumatic, PERRLA, EOMI Neck: Supple, JVD not distended Respiratory: Clear to auscultation bilaterally, Normal air movement Cardiovascular: Regular rate/rhythm, Normal S1 S2 Gastrointestinal: Normal bowel sounds, Tenderness (RUQ pain) Musculoskeletal: No tenderness Integumentary: No rashes Neurological: Normal speech, Normal tone, Normal affect Lymphatics: No axilla or inguinal lymphadenopathy - Studies Medications List Reviewed: Yes Assessment & Plan - Problems (Diagnosis) (1) Pancreatitis Onset Date: 10/15/17 Current Visit: Yes Status: Acute Plan: Acute Pancreatitis with elevated liver Function 2.2 to Gallstones -NPO, IV fluids -GI consulted. Appreciate reccs -S.P ERCP now -Surgery Consulted. Appreciate Reccs -Scheduled for OR procedure today -IV zosyn for now Qualifiers: Chronicity: acute Pancreatitis type: biliary Acute pancreatitis complication: uninfected necrosis Qualified Code(s): K85.11 - Biliary acute pancreatitis with uninfected necrosis (2) Cholelithiasis Current Visit: Yes Status: Acute Plan: Cholelithiasis with possible obsutruction -Surgery Consulted for removal in 24 - 48 hrs -Cardiac Clearance Obtain Qualifiers: Cholelithiasis location: gallbladder Cholecystitis presence: without cholecystitis Biliary obstruction: with biliary obstruction Qualified Code(s ): K80.21 - Calculus of gallbladder without cholecystitis with obstruction (3) Atrial fibrillation Onset Date: 09/17/16 Current Visit: No Status: Chronic Qualifiers: Atrial fibrillation type: chronic Qualified Code(s): I48.2 - Chronic atrial fibrillation (4) Diabetes Onset Date: 09/17/16 Current Visit: No Status: Chronic Qualifiers: Diabetes mellitus type: type 2 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
--- NOTE | 2017-10-16 15:52 | CON ---
Date of Consultation: 10/15/2017 Reason For Consultation: Possible choledocholithiasis and gallstone pancreatitis. History Of Present Illness: The patient is an 87-year-old white male with history of coronary artery disease, pacemaker, diabetes, chronic kidney disease, skin cancer, cataract surgery. The patient ca me into the hospital due to nausea, vomiting, minimal upper abdominal pain, and according to family, he states he mainly had nausea and vomiting with some slight low-grade fevers at the house. He has b een vomiting over the past 2 to 3 weeks, usually able to care for himself at home. His clinical stat us had declined. In the hospital, found to have gallstone pancreatitis presumably due to gallstones with elevated lipase, and imaging revealing pancreatitis as well. The patient admitted to [facility] for further evaluation and care. 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 Family History: Father of myocardial infarction. Mother of stomach cancer at age 87. Fat her with diabetes. Social History: No tobacco or alcohol. No illicit drugs. Does use caffeine. Physical Examination: Vital Signs: The patient is 5 feet 11 inches, 212 pounds, BMI of 29.6 kg/m2. Temperature 98.4 degre es Fahrenheit, pulse 70, respirations 18, blood pressure 114/57, O2 saturation 99%. General: He is an elderly male, lying in bed, in no acute distress, very talkative. HEENT: Normocephalic, atraumatic. Jaundice. Pupils equal, round, and reactive to light. Extraocul ar movements are intact. Oropharynx is clear. Right lower eyelid is drooping. Neck: Supple. No masses. RESPIRATIONS: Decreased breath sound at bases, but overall clear. Cardiac: Regular rate and rhythm. No gallops or rubs. Gastrointestinal: Positive bowel sounds. Soft, nontender, nondistended. No hepatosplenomegaly. No peritoneal or Navas sign. No rebound. Extremities: No clubbing or cyanosis. He did have some lower extremity edema. Neuro: Alert and oriented x3. Able to move extremities somewhat well, though somewhat limited in lo wer extremities. Laboratory Data: The patient has a white count of 9.7, hemoglobin 12.2, hematocrit 36, MCV of 96, pl atelet count of 148, polys of 73% down from 91% yesterday, lymphocytes 21%, monocytes 6%. The patien t has a PT of 14.5, INR 1.23, PTT 26.4. Sodium 144, potassium 3.7, chloride 106, bicarb 31. BUN 35; creatinine of 2.1, elevated up from 1.9 yesterday. Glucose down from 230 yesterday. Kenny cium 8.7, phosphorus 3.1, magnesium 1.9. Total bilirubin 4.9, AST of 162, ALT of 162, alkaline phosp hatase 236, total protein 6.2, albumin , amylase 399, lipase is 2304. UA showed trace leukocyte esterase, 5 to 10 white blood cells, trace total protein, trace ketones, ot herwise negative. Impression: 1.Possible choledocholithiasis. The patient could not undergo magnetic resonance cholangiopancreato graphy due to his pacemaker. Elevated liver chemistries including bilirubin with jaundice with eleva angie AST, ALT as well as elevated lipase. We will need to investigate with endoscopic retrograde chol angiopancreatography to ensure no choledocholithiasis. 2.Gallstone pancreatitis. Lipase elevated at 2304, yesterday was 9639. Imaging studies including u ltrasound of abdomen revealed cholelithiasis, normal bile duct with some mild abdominal pain so criselda liu has gallstone pancreatitis with nausea, vomiting, midepigastric pain. Recommendations: 1.Continue IV fluids, IV antibiotics. Continue p.r.n. pain medications and antiemetics. 2.We will proceed with ERCP. KEVEN/ALEXIS Voice ID: [id number] Report ID: [id number]
[2017-10-16] MEDS: ACETAMINOPHEN 500 MG TAB PO PRN (17:28)
[2017-10-16] MEDS ORDERED: D50W 25 GM/50 ML SYRINGE IV PRN (19:47)
[2017-10-16] MEDS ORDERED: GLUCAGON 1 MG/VIAL IM PRN (19:47)
[2017-10-16] MEDS: INSULIN -REGULAR HUMAN 50 UNIT/0.5 ML ML SQ SCH (21:07)
--- NOTE | 2017-10-16 22:36 | OP ---
Date of Procedure: 10/16/2017 Surgeon: Nilesh Celestin MD, Wastewater Design Engineer: Telma Bobo. Preoperative Diagnosis: Gallstone pancreatitis. Postoperative Diagnosis: Gallstone pancreatitis. Procedure Performed: Laparoscopic cholecystectomy. Anesthesia: General endotracheal plus local with 0.25% Marcaine with epinephrine. Estimated Blood Loss: Less than 10 cc. Specimen: Gallbladder. Findings: Acute inflammation of the gallbladder. Complications: None. Disposition: Transferred to recovery room in good condition. Procedure In Detail: After informed consent was obtained, the patient was brought to the operating r oom, prepped and draped in the usual sterile fashion. After adequate anesthesia was achieved, a supr aumbilical area was anesthetized with 0.25% Marcaine, sharply incised. A 5-mm trocar was introduced into the abdomen without evidence of complication. Insufflation was obtained to 15 mmHg at this time . The area was inspected for injury to vital structures and no injury to vital structures upon entry into the abdomen. Additional trocar site was chosen in the epigastrium. This was similarly anesthe tized and sharply incised and a 5-mm trocar was introduced into the abdomen without evidence of compl ication. The umbilical trocar was then up-sized to 12 mm under direct visualization without evidence of complication. Additional trocar site was chosen in the right upper quadrant. This was similarly anesthetized and sharply incised and a 5-mm trocar was introduced into the abdomen without evidence of complication. The patient was positioned with gallbladder positioned that is head up right-side u p position. Ratcheted grasper was used to grasp the gallbladder with the patient towards the patient 's right shoulder and dissection of the triangle of Calot down laterally. Dissection continued down using blunt dissection to expose the cystic duct and cystic artery using a Laina retractor and elec trocautery and the peritoneal lining. After the 2 structures were noted to be entering the gallbladd er, they were identified as the cystic duct and cystic artery. These were the only 2 structures ente ring the gallbladder at this time and the critical view of safety was obtained both with the anterior and lateral directions. After this was ensured, the cystic duct and cystic artery were both doubly ligated on the proximal side, distally on the distal side and ligated using the Endo Cal at this t kamilah. The electrocautery was then used to remove the gallbladder from the hepatic fossa with minimal spillage of bile at that time, and the gallbladder was then removed through an umbilical trocar after being placed in EndoCatch bag. Re-insufflation was obtained at this time. The abdomen was copiousl y irrigated multiple times until completely clear and then suctioned out until completely dry. Good hemostasis was achieved without any additional hemostatic maneuvers and the patient was positioned ba ck in neutral position after completely suctioning out all the remainder of the fluid. At this time, attention was turned to the umbilical trocar site. The umbilical trocar was removed and the umbilic al trocar site was closed using a Rosalio-Sudhakar suture passer with 0 Vicryl in interrupted fashion. There was additional infraumbilical hernia, which was also closed with a single interrupted 0 Vicry l suture with good approximation of the tissues. The abdomen was then completely desufflated under d irect visualization without evidence of complication. All trocars were then removed. All skin incis ions were copiously irrigated and closed with a 4-0 Monocryl in a running fashion. Dermabond was alicia dru over top. The patient tolerated the procedure well without evidence of complication and transfer red to the PACU in good condition. All counts were correct at the end of the case. DARRELL/ALEXIS Voice ID: [id number] Report ID: [id number]
--- NOTE | 2017-10-16 23:18 | CON ---
Date of Consultation: 10/15/[address] Bahena's service on 10/14/2017. The patient was seen on 10/15/2017. Reason For Consultation: Cardiac clearance for possible gallbladder surgery. History Of Present Illness: The patient is an 87-year-old white male. He is known to us from previo us office visits. He has a permanent pacemaker placement. Has a history of gout, diabetes, hyperten nithin, dyslipidemia, atrial fibrillation that is paroxysmal, intolerant to anticoagulation secondary t o history of bleeding in the past. Last stress test was in 2008, which was normal. Last echocardiog edgar in 2016 which was normal. Came in without any cardiac complaint but was found to have cholecysti tis and pancreatitis. His lipase was 9639. His amylase 399. He had elevated AST, ALT, and alkaline phosphatase. His creatinine was 2.1. He was in a paced rhythm. Chest x-ray was negative. No card iac symptoms. Allergies: NONE. Review of Systems: Negative. Social History: Negative. Family History: Noncontributory. Medications: At home include aspirin, Lasix, and glipizide. Physical Examination: General: He was pleasant, alert, oriented x3. No complaints from a cardiac standpoint. Vital Signs: Stable. Paced rhythm. HEENT: Negative. Neck: Supple without any bruit, lymphadenopathy, JVD, or thyromegaly. Chest: Clear to auscultation and percussion. Cardiac: Revealed a paced rhythm. No murmurs, gallops, or rubs. Abdomen: Benign. Extremities: Revealed no clubbing, cyanosis, or edema. Diagnostic Data: As stated earlier. Impression And Plan: Mr. Lovett has a pacemaker and has paroxysmal atrial fibrillation, diabetes, hypertension, gout, dyslipidemia. He is intolerant to anticoagulation secondary to history of bleedi ng before. Last stress test was negative in 2008. Echocardiogram in August 2016 was normal ejection f raction without any aortic stenosis or wall motion abnormalities. He has no cardiac symptoms. His E KG showed paced rhythm, which is what it showed about 6 months ago in the office. I feel that he is at lower risk for perioperative mortality for procedures regarding his gallbladder, his pancreas. We will be available for questions if the need arise. I do not recommend any further cardiac testing a t this point. ALEJANDRO/ANNELIESEL Voice ID: [id number] Report ID: [id number]
[2017-10-17] MEDS: PIPER/TAZO/NS 3.375gm 3.375 GM/100 ML BAG IVPB SCH ×3 (00:05→17:19)
[2017-10-17] MEDS: ACETAMINOPHEN 500 MG TAB PO PRN ×3 (01:28→20:31)
[2017-10-17] MEDS: IPRATROPIUM BROM 0.5MG/2.5ML NEB SCH ×4 (01:52→19:10)
[2017-10-17] MEDS: ALBUTEROL 2.5 MG/3 ML NEB SOL NEB SCH ×4 (01:52→19:10)
[2017-10-17 05:26] LABS: Absolute Lymphocytes (CBC) 0.8 K/uL (0.7-4.9); Absolute Monocytes 0.3 K/uL (0.1-1.3); Absolute Neutrophil 2.8 K/uL (1.8-8.0); Basophils % 0.3 % (0-1.3); Eosinophils % 4.3 % (0-4.4); Hematocrit 29.8 % (39.6-49.0); Lymphocytes % 18.9 % (15.3-44.8); MCH 32.4 pg (27.0-35.0); MCV 97.5 fL (80-100); Monocytes % 7.3 % (3.3-12.3); RBC Red Blood Cell Count 3.06 M/uL (4.33-5.43)
[2017-10-17 05:54] LABS: Albumin 2.2 g/dL (3.4-5.0); Magnesium 1.9 mg/dL (1.8-2.4); Phosphorus 1.7 mg/dL (2.5-4.9); Potassium 3.3 mmol/L (3.5-5.1); Protein, Total 5.6 g/dL (6.4-8.2)
[2017-10-17 05:56] LABS: Bilirubin Total 5.2 mg/dL (0.2-1.0)
[2017-10-17] MEDS ORDERED: POTASSIUM PHOS IN 0.9 % NACL 15 MMOL/250 ML BAG IV ONE (06:04)
[2017-10-17] MEDS: INSULIN -REGULAR HUMAN 50 UNIT/0.5 ML ML SQ SCH ×4 (07:30→20:33)
[2017-10-17] MEDS ORDERED: KCL 20 MEQ/100 mL IVPB 20 MEQ/100 ML BAG IV SCH (08:00)
[2017-10-17] MEDS: NA CHLORIDE 0.9% 1,000 ML IV SCH ×2 (08:18→17:19)
--- NOTE | 2017-10-17 10:10 | P.PN ---
Subjective Date of Service: 10/17/17 Primary Care Provider: Dr Bahena Chief Complaint: Nausea/Vomitting Subjective: Improving (Patient feels much better today, just a little sore.) Physical Examination - Vital Signs Temperature: 97.5 F Blood Pressure: 121/63 Pulse: 77 Respirations: 18 Pulse Ox (%): 99 - Physical Exam General: Alert, In no apparent distress, Cooperative HEENT: Mucous membr. moist/pink Gastrointestinal: Other (soft, mild appropriate TTP, ND, incisions clean and dry ) - Studies Microbiology Data (last 24 hrs): 10/14/17 15:00 Blood - Blood Aerobic Blood Culture - Final Klebsiella Pneumoniae 10/14/17 15:00 Blood - Blood Gram Stain - Final 10/14/17 15:00 Blood - Blood Anaerobic Blood Culture - Final Klebsiella Pneumoniae 10/14/17 15:00 Blood - Blood Gram Stain - Final Medications List Reviewed: Yes Assessment And Plan - Current Problems (Diagnosis) (1) Pancreatitis Onset Date: 10/15/17 Current Visit: Yes Status: Acute Plan: s/p laparoscopic cholecystectomy - keep patient one more day due to elevation of liver enzymes - continue medical management Qualifiers: Chronicity: acute Pancreatitis type: biliary Acute pancreatitis complication: uninfected necrosis Qualified Code(s): K85.11 - Biliary acute pancreatitis with uninfected necrosis
--- NOTE | 2017-10-17 15:58 | PN ---
Date of Progress Note: 10/17/2017 Subjective: The patient seen and examined. Chart reviewed and case discussed with RN. The patient is doing well post surgery, tolerating his diet. Some abdominal discomfort. However, the pain is tolerable. Review of Systems: Negative except as above. Code status: Full Medications: List reviewed. Physical Examination: Vital Signs: Temperature 97.5, heart rate 77, blood pressure 121/62, respirations 18, O2 of 99% on room air. General: Awake, alert, oriented x3, not in any acute distress. Elderly male, somewhat ill-appearing. CV: S1, S2. No murmurs. Peripheral pulses present. Respiratory: Moving air well bilaterally. No wheezing. Gastrointestinal: Abdomen is soft. Mild distention. Some tenderness to palpation around the incision site. Bowel sounds positive. Extremities: No clubbing, cyanosis, or edema. Neurologic: Nonfocal. Laboratory Data: Sodium 146, potassium 3.3, chloride 113, CO2 of 27, BUN 28, creatinine 2, glucose 64, calcium 8, phosphorus 1.7, magnesium 1.9, total bilirubin 5.2, AST 56, ALT 77, alkaline phosphatase 120. WBC 4.1, H and H of 9.9 and 29.8, platelets 135. Blood cultures growing Klebsiella pneumonia. Urine culture shows mixed uday. Sputum culture, he has 2+ gram-negative rods. Assessment And Plan: 1. Acute pancreatitis status post endoscopic retrograde cholangiopancreatogram and cholecystectomy. The patient doing well. Pain is significantly better. 2. Cholelithiasis with obstruction, status post laparoscopic cholecystectomy. 3. Atrial fibrillation, chronic. 4. Diabetes mellitus type 2 without long-term use of insulin with hyperglycemia. 5. Essential hypertension, stable. 6. Hypokalemia. We will replace and monitor. 7. Elevated liver enzymes and total bilirubin secondary to above, trending down. 8. Chronic kidney disease, stage 3. Creatinine at baseline. We will continue to monitor. 9. Bacteremia with Klebsiella pneumonia. Continue antibiotics. Plan: Likely discharge in the next 24 to 48 hours once continues to improve. /ALEXIS Voice ID: [id number] Report ID: [id number] RAFFY
--- NOTE | 2017-10-17 18:46 | P.PN ---
Subjective Date of Service: 10/17/17 Primary Care Provider: Dr Bahena Chief Complaint: Nausea/Vomitting, jaundice, s/p lap rene Subjective: New changes (Increasing total bilirubin after lap rene with stones in gallbladder, now with possible stone into CBD. 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.) Review of Systems 10-point ROS is otherwise unremarkable Eyes: Other (jaundice) Gastrointestinal: Abdominal Pain (post-op pain) Physical Examination - Vital Signs Temperature: 98.6 F Blood Pressure: 152/76 Pulse: 78 Respirations: 18 Pulse Ox (%): 97 - Physical Exam General: Alert, In no apparent distress, Oriented x3, Cooperative (sitting in chair, talkative) HEENT: Atraumatic, Normocephalic, PERRLA, EOMI, Scleral icterus Neck: Supple Respiratory: Diminished (in bases) Gastrointestinal: Non-distended (but obese), No rebound, Tenderness (post-op pain), Guarding Neurological: Normal speech, Normal strength at 5/5 x4 extr - Studies Microbiology Data (last 24 hrs): 10/14/17 15:00 Blood - Blood Aerobic Blood Culture - Final Klebsiella Pneumoniae 10/14/17 15:00 Blood - Blood Gram Stain - Final 10/14/17 15:00 Blood - Blood Anaerobic Blood Culture - Final Klebsiella Pneumoniae 10/14/17 15:00 Blood - Blood Gram Stain - Final Medications List Reviewed: Yes Assessment And Plan - Current Problems (Diagnosis) (1) Gallstone pancreatitis Current Visit: Yes Status: Acute (2) Cholelithiasis Current Visit: Yes Status: Acute Qualifiers: Cholelithiasis location: gallbladder Cholecystitis presence: without cholecystitis Biliary obstruction: with biliary obstruction Qualified Code(s ): K80.21 - Calculus of gallbladder without cholecystitis with obstruction (3) ARF (acute renal failure) Onset Date: 09/10/16 Current Visit: No Status: Acute Qualifiers: Acute renal failure type: unspecified Qualified Code(s): N17.9 - Acute kidney failure, unspecified (4) Acute respiratory failure Onset Date: 09/17/16 Current Visit: No Status: Acute Qualifiers: Respiratory failure complication: hypoxia Qualified Code(s): J96.01 - Acute respiratory failure with hypoxia (5) Atypical mycobacterial infection of lung Onset Date: 09/10/16 Current Visit: No Status: Acute (6) Hypoxemia Current Visit: No Status: Acute (7) Sleep apnea Current Visit: No Status: Acute (8) Anemia Onset Date: 09/10/16 Current Visit: No Status: Chronic Qualifiers: Anemia type: unspecified type Qualified Code(s): D64.9 - Anemia, unspecified (9) Atrial fibrillation Onset Date: 09/17/16 Current Visit: No Status: Chronic Qualifiers: Atrial fibrillation type: chronic Qualified Code(s): I48.2 - Chronic atrial fibrillation (10) Diabetes Onset Date: 09/17/16 Current Visit: No Status: Chronic Qualifiers: Diabetes mellitus type: type 2 Diabetes mellitus rn long term care insulin use: without halfway use Diabetes mellitus complication status: without complication Qualified Code(s): E11.9 - Type 2 diabetes mellitus without complications (11) HTN (hypertension) Onset Date: 09/17/16 Current Visit: No Status: Chronic Qualifiers: Hypertension type: essential hypertension Qualified Code(s): I10 - Essential (primary) hypertension (12) Jaundice Current Visit: Yes Status: Acute - Plan REC: 1) transfer to tertiary center due to increasing bilirubin s/p lap rene. 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 Have spoken to advanced endoscopist at [facility] who has accepted patient in transfer. 2) monitor labs
[2017-10-17 20:22] VITALS: BP 136/64; TEMP 98.1
[2017-10-17 21:13] VITALS: O2SAT 97
--- NOTE | 2017-10-19 03:59 | DS ---
Date of Discharge: 10/17/2017 Admitting Diagnoses: 1.Acute pancreatitis. 2.Atrial fibrillation, chronic. 3.Diabetes mellitus type 2 without complications. 4.Essential hypertension. Discharge Diagnoses: 1.Acute pancreatitis secondary to gallstones. 2.Cholelithiasis without cholecystitis with biliary obstruction. 3.Acute on chronic kidney injury. 4.Acute respiratory distress. 5.Chronic atrial fibrillation. 6.Diabetes mellitus type 2 without long-term use of insulin with hyperglycemia. 7.Essential hypertension. 8.Hypokalemia, replaced. 9.Elevated liver enzymes and total bilirubin secondary to above. 10.Chronic kidney disease stage 3. 11.Bacteremia with Klebsiella pneumoniae. Consultants: Dr. Booker with GI, Dr. Celestin with General Surgery. Procedures: On 10/16/[address] Celestin, laparoscopic cholecystectomy. Hospital Course: The patient is an 87-year-old male with past medical history of AFib, diabetes, hyp ertension, comes in with nausea and vomiting. The patient found to have acute pancreatitis secondary to gallstones. Lipase level was 9639. He was started on IV fluids, IV antibiotics. General surgeo n, Dr. Celestin was consulted. He performed laparoscopic cholecystectomy, which the patient tolerated well. The patient also had some acute on chronic kidney injury. IV fluids were started. His creat inine did improve and was back to baseline. The patient did have improvement in his condition; howev er, his bilirubin continued to trend up as high as 5.2. Dr. Booker with GI was also consulted. He a ttempted ERCP. 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 He did obtain a cholangiogram. The patient was then transferred to [facility] as Dr. Roberto duvall recommended transfer to tertiary care center due to increasing bilirubin status post lap rene. Advanced endoscopist at [facility] accepted the patient for transfer, and the patient was transferre d to [facility] once bed was available. He also had some Klebsiella pneumoniae growing out of his bl ood cultures and sputum cultures which was covered with antibiotics. The patient was then transferre d to [facility] in a fair condition. Total time spent transferring the patient was 37 minutes. Physical Examination: For physical exam findings, please see progress note dictated on the day of transfer. SA/MODL Voice ID: [id number] Report ID: [id number]
== END 2017-10-17 22:34 | disposition short-term general hospital (02) | DRG 417 ==
LOC: ER 13:52 → ERHOLD 15:50 → 2ND 19:48
PROVIDERS: ADMIT Family Medicine; ATTEND Family Medicine
PROC: 0FJB8ZZ Inspection of Hepatobiliary Duct, Via Natural or Artificial Opening Endoscopic (ICD-10-PCS; 2017-10-15)
PROC: BF101ZZ Fluoroscopy of Bile Ducts using Low Osmolar Contrast (ICD-10-PCS; 2017-10-15)
PROC: 0FT44ZZ Resection of Gallbladder, Percutaneous Endoscopic Approach (ICD-10-PCS; principal; 2017-10-16 10:00)
DX: K85.11 Biliary acute pancreatitis with uninfected necrosis (principal); K83.1 Obstruction of bile duct; K80.21 Calculus of gallbladder without cholecystitis with obstruction; N17.9 Acute kidney failure, unspecified; R78.81 Bacteremia; A31.0 Pulmonary mycobacterial infection; E11.65 Type 2 diabetes mellitus with hyperglycemia; I10 Essential (primary) hypertension; J44.9 Chronic obstructive pulmonary disease, unspecified; E11.22 Type 2 diabetes mellitus with diabetic chronic kidney disease; I12.9 Hypertensive chronic kidney disease with stage 1 through stage 4 chronic kidney disease, or unspecified chronic kidney disease; N18.3 Chronic kidney disease, stage 3 (moderate); E87.6 Hypokalemia; B96.1 Klebsiella pneumoniae [K. pneumoniae] as the cause of diseases classified elsewhere; G47.30 Sleep apnea, unspecified; D64.9 Anemia, unspecified; M10.9 Gout, unspecified; E78.5 Hyperlipidemia, unspecified; I48.0 Paroxysmal atrial fibrillation; I25.10 Atherosclerotic heart disease of native coronary artery without angina pectoris; Z79.84 Long term (current) use of oral hypoglycemic drugs; Z95.0 Presence of cardiac pacemaker; N30.80 Other cystitis without hematuria; R06.03 Acute respiratory distress
CPT/HCPCS: 36415; 70450; 71045; 74176; 76705; 80048; 80053; 80076; 81003; 81015; 82150; 82550; 82553; 82962; 83690; 83735; 83880; 84100; 84484; 85025; 85610; 85730; 87040; 87070; 87077; 87086; 87088; 87186; 87205; 88304; 93005; 94640; 94760; 96361; 96365; 96375; 97163; 99285; C1769; J1580; J1610; J1650; J2370; J2405; J2543; J2550; J2710; J3010; J7030

== ENCOUNTER 2018-02-28 13:41 | Emergency (ER) | payer OTHER ==
--- OUTSIDE RECORDS SUMMARY | 2018-02-28 13:44 | XMS REPORT ---
:1930 Author Organization [facility] Address [address] [place] [address] Care Team Providers Name Role Phone ELENA COOK Unavailable Unavailable Problems This patient has no known problems. Allergies, Adverse Reactions, Alerts This patient has no known allergies or adverse reactions. Medications This patient has no known medications. Results Test Description Test Time Test Comments Text Results Atomic Results Result Comments POCT-GLUCOSE METER 2017-10-22 08:14:00 Test Item Value Reference Range Comments POC-GLUCOSE METER (BEAKER) (test 107 mg/dL 70-110 TESTED AT [facility] [address] [facility] eeyj=5810) [facility] [address] [id number] 06:17:00 Test Item Value Reference Range Comments PHOSPHORUS (BEAKER) (test rhtn=929) 3.2 mg/dL 2.3-4.7 [id number] 06:17:00 Test Item Value Reference Range Comments MAGNESIUM (BEAKER) (test bkne=103) 1.7 mg/dL 1.6-2.6 COMPREHENSIVE METABOLIC [id number] 06:17:00 Test Item Value Reference Range Comments TOTAL PROTEIN (BEAKER) 6.2 gm/dL 6.0-8.3 (test ojpj=300) ALBUMIN (BEAKER) (test 2.9 g/dL 3.5-5.0 pndq=6397) ALKALINE PHOSPHATASE 116 U/L 40-150 (BEAKER) (test mnix=260) BILIRUBIN TOTAL (BEAKER) 1.9 mg/dL 0.2-1.2 (test rbyi=894) SODIUM (BEAKER) (test 137 meq/L 136-145 yhdx=799) POTASSIUM (BEAKER) (test 3.9 meq/L 3.5-5.1 mzlg=923) CHLORIDE (BEAKER) (test 103 meq/L 98-107 bcdy=472) CO2 (BEAKER) (test 24 meq/L 22-29 csia=262) BLOOD UREA NITROGEN 22 mg/dL 7-21 (BEAKER) (test sucq=546) CREATININE (BEAKER) (test 1.38 mg/dL 0.57-1.25 fnrd=141) GLUCOSE RANDOM (BEAKER) 113 mg/dL 70-105 (test uaxs=376) CALCIUM (BEAKER) (test 9.3 mg/dL 8.4-10.2 uzfp=399) AST (SGOT) (BEAKER) (test 37 U/L 5-34 wkrx=533) ALT (SGPT) (BEAKER) (test 34 U/L 6-55 hrsr=777) EGFR (BEAKER) (test 49 mL/min/1.73 sq m ESTIMATED GFR IS NOT qjrs=6936) ACCURATE CREATININE CLEARANCE IN PREDICTING GLOMERULAR FILTRATION RATE. ESTIMATED GFR IS NOT APPLICABLE FOR DIALYSIS PATIENTS. POCT-GLUCOSE [id number] 06:03:00 Test Item Value Reference Range Comments POC-GLUCOSE METER (BEAKER) 127 mg/dL 70-110 TESTED AT [address] (test cjzw=4368) [facility] [address] CBC W/PLT COUNT & AUTO [id number] 05:43:00 Test Item Value Reference Range Comments WHITE BLOOD CELL COUNT (BEAKER) (test ejxc=235) 3.9 K/ L 3.5-10.5 RED BLOOD CELL COUNT (BEAKER) (test pnfl=548) 3.32 M/ L 4.63-6.08 HEMOGLOBIN (BEAKER) (test fltv=731) 10.5 GM/DL 13.7-17.5 HEMATOCRIT (BEAKER) (test mysw=666) 32.9 % 40.1-51.0 MEAN CORPUSCULAR VOLUME (BEAKER) (test mens=383) 99.1 fL 79.0-92.2 MEAN CORPUSCULAR HEMOGLOBIN (BEAKER) (test 31.6 pg 25.7-32.2 mffx=677) MEAN CORPUSCULAR HEMOGLOBIN CONC (BEAKER) (test 31.9 GM/DL 32.3-36.5 edjg=563) RED CELL DISTRIBUTION WIDTH (BEAKER) (test 15.3 % 11.6-14.4 inip=627) PLATELET COUNT (BEAKER) (test mpkx=999) 138 K/CU MM 150-450 MEAN PLATELET VOLUME (BEAKER) (test srst=580) 11.9 fL 9.4-12.4 NUCLEATED RED BLOOD CELLS (BEAKER) (test 0 /100 WBC 0-0 zfim=857) NEUTROPHILS RELATIVE PERCENT (BEAKER) (test 58 % nkli=477) LYMPHOCYTES RELATIVE PERCENT (BEAKER) (test 27 % enud=461) MONOCYTES RELATIVE PERCENT (BEAKER) (test 11 % ynup=172) EOSINOPHILS RELATIVE PERCENT (BEAKER) (test 3 % jwfc=233) BASOPHILS RELATIVE PERCENT (BEAKER) (test 1 % cwsi=151) NEUTROPHILS ABSOLUTE COUNT (BEAKER) (test 2.26 K/ L 1.78-5.38 wmcv=192) LYMPHOCYTES ABSOLUTE COUNT (BEAKER) (test 1.06 K/ L 1.32-3.57 yumt=853) MONOCYTES ABSOLUTE COUNT (BEAKER) (test 0.43 K/ L 0.30-0.82 yksm=909) EOSINOPHILS ABSOLUTE COUNT (BEAKER) (test 0.13 K/ L 0.04-0.54 mogd=187) BASOPHILS ABSOLUTE COUNT (BEAKER) (test 0.02 K/ L 0.01-0.08 jaxh=102) IMMATURE GRANULOCYTES-RELATIVE PERCENT (BEAKER) 0 % 0-1 (test bzbk=5031) POCT-GLUCOSE [id number] 00:02:00 Test Item Value Reference Range Comments POC-GLUCOSE METER (BEAKER) 275 mg/dL 70-110 TESTED AT [address] (test gmyk=4289) [facility] [address] [place], [id number] 19:53:00INTRAOP IMAGINGReason for exam:->pancreatic strictureFINAL REPORT ERCP 6 views 10/21/2017 7:52 PM CLINICAL HISTORY: Instrument localization COMPARISON: None available IMPRESSION : Please correlate imaging report findings with the procedure note prepared by Dr. Lundberg, as an intra-procedure imaging consultation was not requested. Reported fluoroscopy time: 96.4 seconds. Signed: Viktor Beckford Verified Date/Time: 10/21/2017 19:53:14 Reading Location: [facility] Radiology Reading Room Electronically signed by: VIKTOR BECKFORD M.D. on 07:53 PMPOCT-GLUCOSE [id number] 19:21:00 Test Item Value Reference Range Comments POC-GLUCOSE METER (BEAKER) 98 mg/dL 70-110 TESTED AT [address] (test rnjw=1169) [facility] [address] COMPREHENSIVE METABOLIC [id number] 12:57:00 Test Item Value Reference Range Comments TOTAL PROTEIN (BEAKER) 6.5 gm/dL 6.0-8.3 Specimen slightly (test kyau=002) hemolyzed ALBUMIN (BEAKER) (test 3.0 g/dL 3.5-5.0 Specimen slightly jzca=7525) hemolyzed ALKALINE PHOSPHATASE 124 U/L 40-150 (BEAKER) (test pvvv=591) BILIRUBIN TOTAL (BEAKER) 2.3 mg/dL 0.2-1.2 Specimen slightly (test trtl=926) hemolyzed SODIUM (BEAKER) (test 137 meq/L 136-145 medj=525) POTASSIUM (BEAKER) (test 4.8 meq/L 3.5-5.1 Specimen slightly mczt=211) hemolyzed CHLORIDE (BEAKER) (test 104 meq/L 98-107 ryfe=010) CO2 (BEAKER) (test 25 meq/L 22-29 bpiz=480) BLOOD UREA NITROGEN 19 mg/dL 7-21 (BEAKER) (test ycui=324) CREATININE (BEAKER) (test 1.31 mg/dL 0.57-1.25 Specimen slightly rxwp=682) hemolyzed GLUCOSE RANDOM (BEAKER) 109 mg/dL 70-105 (test rxjw=943) CALCIUM (BEAKER) (test 9.5 mg/dL 8.4-10.2 swwl=688) AST (SGOT) (BEAKER) (test 42 U/L 5-34 Specimen slightly mnus=675) hemolyzed ALT (SGPT) (BEAKER) (test 40 U/L 6-55 Specimen slightly wgta=614) hemolyzed EGFR (BEAKER) (test 52 mL/min/1.73 sq m ESTIMATED GFR IS NOT iqlr=5228) ACCURATE CREATININE CLEARANCE IN PREDICTING GLOMERULAR FILTRATION RATE. ESTIMATED GFR IS NOT APPLICABLE FOR DIALYSIS PATIENTS. POCT-GLUCOSE [id number] 11:41:00 Test Item Value Reference Range Comments POC-GLUCOSE METER (BEAKER) 136 mg/dL 70-110 TESTED AT [address] (test rtse=3849) [facility] [address] POCT-GLUCOSE [id number] 08:14:00 Test Item Value Reference Range Comments POC-GLUCOSE METER (BEAKER) 151 mg/dL 70-110 TESTED AT [place] [id number] [facility] (test yroo=6340) [facility] [address] CBC W/PLT COUNT & AUTO [id number] 06:28:00 Test Item Value Reference Range Comments WHITE BLOOD CELL COUNT (BEAKER) (test zstw=348) 4.8 K/ L 3.5-10.5 RED BLOOD CELL COUNT (BEAKER) (test pzbg=727) 3.51 M/ L 4.63-6.08 HEMOGLOBIN (BEAKER) (test vnun=318) 10.9 GM/DL 13.7-17.5 HEMATOCRIT (BEAKER) (test uiwi=331) 34.7 % 40.1-51.0 MEAN CORPUSCULAR VOLUME (BEAKER) (test ndfz=830) 98.9 fL 79.0-92.2 MEAN CORPUSCULAR HEMOGLOBIN (BEAKER) (test 31.1 pg 25.7-32.2 yksz=361) MEAN CORPUSCULAR HEMOGLOBIN CONC (BEAKER) (test 31.4 GM/DL 32.3-36.5 roca=007) RED CELL DISTRIBUTION WIDTH (BEAKER) (test 15.4 % 11.6-14.4 vzug=174) PLATELET COUNT (BEAKER) (test wryy=383) 156 K/CU MM 150-450 MEAN PLATELET VOLUME (BEAKER) (test pieb=166) 11.4 fL 9.4-12.4 NUCLEATED RED BLOOD CELLS (BEAKER) (test 0 /100 WBC 0-0 ukcu=318) NEUTROPHILS RELATIVE PERCENT (BEAKER) (test 56 % aacr=682) LYMPHOCYTES RELATIVE PERCENT (BEAKER) (test 28 % wniy=526) MONOCYTES RELATIVE PERCENT (BEAKER) (test 11 % lymb=868) EOSINOPHILS RELATIVE PERCENT (BEAKER) (test 4 % noay=997) BASOPHILS RELATIVE PERCENT (BEAKER) (test 0 % zsvp=277) NEUTROPHILS ABSOLUTE COUNT (BEAKER) (test 2.68 K/ L 1.78-5.38 bqvv=224) LYMPHOCYTES ABSOLUTE COUNT (BEAKER) (test 1.37 K/ L 1.32-3.57 wlfl=687) MONOCYTES ABSOLUTE COUNT (BEAKER) (test 0.53 K/ L 0.30-0.82 tmgl=767) EOSINOPHILS ABSOLUTE COUNT (BEAKER) (test 0.19 K/ L 0.04-0.54 cvzs=404) BASOPHILS ABSOLUTE COUNT (BEAKER) (test 0.02 K/ L 0.01-0.08 kdqh=119) IMMATURE GRANULOCYTES-RELATIVE PERCENT (BEAKER) 1 % 0-1 (test dazp=2584) POCT-GLUCOSE [id number] 23:05:00 Test Item Value Reference Range Comments POC-GLUCOSE METER (BEAKER) 186 mg/dL 70-110 TESTED AT [address] (test bakm=4163) [place] [id number] POCT-GLUCOSE [id number] 16:59:00 Test Item Value Reference Range Comments POC-GLUCOSE METER (BEAKER) 180 mg/dL 70-110 TESTED AT [address] (test minl=1112) [place] [address] POCT-GLUCOSE [id number] 12:05:00 Test Item Value Reference Range Comments POC-GLUCOSE METER (BEAKER) 207 mg/dL 70-110 TESTED AT [address] (test rsvn=9825) [place] [address] POCT-GLUCOSE [id number] 08:01:00 Test Item Value Reference Range Comments POC-GLUCOSE METER (BEAKER) 90 mg/dL 70-110 TESTED AT [address] (test wzud=8998) [place] [address] [id number] 05:52:00 Test Item Value Reference Range Comments MAGNESIUM (BEAKER) (test 1.9 mg/dL 1.6-2.6 Specimen slightly hemolyzed pber=029) [id number] 05:52:00 Test Item Value Reference Range Comments PHOSPHORUS (BEAKER) (test 2.3 mg/dL 2.3-4.7 Specimen slightly hemolyzed jumz=506) BASIC METABOLIC [id number] 05:52:00 Test Item Value Reference Range Comments SODIUM (BEAKER) (test 139 meq/L 136-145 hkil=728) POTASSIUM (BEAKER) (test 4.3 meq/L 3.5-5.1 Specimen slightly zwme=387) hemolyzed CHLORIDE (BEAKER) (test 111 meq/L 98-107 ryzd=940) CO2 (BEAKER) (test 20 meq/L 22-29 urcn=023) BLOOD UREA NITROGEN 21 mg/dL 7-21 (BEAKER) (test muzj=554) CREATININE (BEAKER) (test 1.24 mg/dL 0.57-1.25 Specimen slightly gefw=253) hemolyzed GLUCOSE RANDOM (BEAKER) 87 mg/dL 70-105 (test bxhd=075) CALCIUM (BEAKER) (test 9.1 mg/dL 8.4-10.2 zncp=244) EGFR (BEAKER) (test 55 mL/min/1.73 sq m ESTIMATED GFR IS NOT alvu=4129) ACCURATE CREATININE CLEARANCE IN PREDICTING GLOMERULAR FILTRATION RATE. ESTIMATED GFR IS NOT APPLICABLE FOR DIALYSIS PATIENTS. HEPATIC FUNCTION [id number] 05:52:00 Test Item Value Reference Range Comments TOTAL PROTEIN (BEAKER) (test 5.8 gm/dL 6.0-8.3 Specimen slightly hemolyzed wrnz=076) ALBUMIN (BEAKER) (test 2.8 g/dL 3.5-5.0 Specimen slightly hemolyzed fhmn=0041) BILIRUBIN TOTAL (BEAKER) (test 2.3 mg/dL 0.2-1.2 Specimen slightly hemolyzed smzt=154) BILIRUBIN DIRECT (BEAKER) (test 1.5 mg/dL 0.1-0.5 Specimen slightly hemolyzed gtkv=559) ALKALINE PHOSPHATASE (BEAKER) 121 U/L 40-150 (test ibbi=020) AST (SGOT) (BEAKER) (test 43 U/L 5-34 Specimen slightly hemolyzed rqgt=271) ALT (SGPT) (BEAKER) (test 42 U/L 6-55 Specimen slightly hemolyzed cjof=778) B-TYPE NATRIURETIC FACTOR (BNP)2017-10-20 05:41:00 Test Item Value Reference Range Comments B-TYPE NATRIURETIC PEPTIDE (BEAKER) (test 319 pg/mL 0-100 blvz=375) PROTHROMBIN [id number] 05:23:00 Test Item Value Reference Range Comments PROTIME (BEAKER) (test emnx=180) 14.3 seconds 11.7-14.7 INR (BEAKER) (test vliw=651) 1.1 <=5.9 RECOMMENDED COUMADIN/WARFARIN INR THERAPY RANGESSTANDARD DOSE: 2.0 - 3.0 Includes: PROPHYLAXIS forvenous thrombosis, systemic embolization; TREATMENT for venous thrombosis and/or pulmonary embolus.HIGH RISK: Target INR is 2.5-3.5 for patients with mechanical heart valves.CBC W/PLT COUNT & AUTO [id number] 05:10:00 Test Item Value Reference Range Comments WHITE BLOOD CELL COUNT (BEAKER) (test kngn=088) 4.0 K/ L 3.5-10.5 RED BLOOD CELL COUNT (BEAKER) (test tofc=094) 3.39 M/ L 4.63-6.08 HEMOGLOBIN (BEAKER) (test gtqn=917) 10.6 GM/DL 13.7-17.5 HEMATOCRIT (BEAKER) (test sesp=743) 34.0 % 40.1-51.0 MEAN CORPUSCULAR VOLUME (BEAKER) (test qadv=213) 100.3 fL 79.0-92.2 MEAN CORPUSCULAR HEMOGLOBIN (BEAKER) (test 31.3 pg 25.7-32.2 apav=024) MEAN CORPUSCULAR HEMOGLOBIN CONC (BEAKER) (test 31.2 GM/DL 32.3-36.5 fazo=738) RED CELL DISTRIBUTION WIDTH (BEAKER) (test 15.7 % 11.6-14.4 ukks=380) PLATELET COUNT (BEAKER) (test ihbk=790) 157 K/CU MM 150-450 MEAN PLATELET VOLUME (BEAKER) (test jsmb=792) 11.7 fL 9.4-12.4 NUCLEATED RED BLOOD CELLS (BEAKER) (test 0 /100 WBC 0-0 yntm=905) NEUTROPHILS RELATIVE PERCENT (BEAKER) (test 56 % vpuz=115) LYMPHOCYTES RELATIVE PERCENT (BEAKER) (test 30 % vovk=674) MONOCYTES RELATIVE PERCENT (BEAKER) (test 8 % mowz=811) EOSINOPHILS RELATIVE PERCENT (BEAKER) (test 5 % kjen=409) BASOPHILS RELATIVE PERCENT (BEAKER) (test 1 % ikhx=321) NEUTROPHILS ABSOLUTE COUNT (BEAKER) (test 2.27 K/ L 1.78-5.38 lbmx=043) LYMPHOCYTES ABSOLUTE COUNT (BEAKER) (test 1.19 K/ L 1.32-3.57 wada=820) MONOCYTES ABSOLUTE COUNT (BEAKER) (test 0.34 K/ L 0.30-0.82 sllf=192) EOSINOPHILS ABSOLUTE COUNT (BEAKER) (test 0.20 K/ L 0.04-0.54 ihue=801) BASOPHILS ABSOLUTE COUNT (BEAKER) (test 0.02 K/ L 0.01-0.08 lmay=253) IMMATURE GRANULOCYTES-RELATIVE PERCENT (BEAKER) 1 % 0-1 (test nzsd=3428) POCT-GLUCOSE [id number] 22:21:00 Test Item Value Reference Range Comments POC-GLUCOSE METER (BEAKER) 259 mg/dL 70-110 TESTED AT [address] (test qoag=3060) [place] [address] POCT-GLUCOSE [id number] 17:06:00 Test Item Value Reference Range Comments POC-GLUCOSE METER (BEAKER) 89 mg/dL 70-110 TESTED AT [address] (test vuii=5335) [place] [address] [place], 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 Fluoroscopy time 3.3 minutes. Fluoroscopic images 3. Fluoroscopic assistance was used during ERCP. Because images were not submitted for interpretation, see separate report by the referring physician for clinical details and imaging interpretation. Signed: Trinity Joshi Verified Date/Time: 10/19/2017 11:29:01 Reading Location: [address] Consult Reading Room Electronically signed by:TRINITY JOSHI M.D. on 2017 11:29 AMPOCT-GLUCOSE [id number] 11:15:00 Test Item Value Reference Range Comments POC-GLUCOSE METER (BEAKER) 117 mg/dL 70-110 TESTED AT [address] (test zgru=0073) [place] [id number] VITAMIN B12 AND [id number] 08:21:00 Test Item Value Reference Range Comments VITAMIN B12 (BEAKER) (test aupb=166) 433 pg/mL 213-816 FOLATE (BEAKER) (test kobu=111) 11.5 ng/mL >=7.0 [id number] 07:37:00 Test Item Value Reference Range Comments PHOSPHORUS (BEAKER) (test fzmf=296) 1.6 mg/dL 2.3-4.7 [id number] 07:37:00 Test Item Value Reference Range Comments MAGNESIUM (BEAKER) (test rblt=123) 1.9 mg/dL 1.6-2.6 BASIC METABOLIC [id number] 07:37:00 Test Item Value Reference Range Comments SODIUM (BEAKER) (test 138 meq/L 136-145 ogun=998) POTASSIUM (BEAKER) (test 4.1 meq/L 3.5-5.1 qxhs=046) CHLORIDE (BEAKER) (test 109 meq/L 98-107 hfpm=581) CO2 (BEAKER) (test 22 meq/L 22-29 ychm=401) BLOOD UREA NITROGEN 23 mg/dL 7-21 (BEAKER) (test tsbo=584) CREATININE (BEAKER) (test 1.38 mg/dL 0.57-1.25 lumf=629) GLUCOSE RANDOM (BEAKER) 53 mg/dL 70-105 (test ixfc=756) CALCIUM (BEAKER) (test 9.0 mg/dL 8.4-10.2 qcvb=886) EGFR (BEAKER) (test 49 mL/min/1.73 sq m ESTIMATED GFR IS NOT vfyx=3466) ACCURATE CREATININE CLEARANCE IN PREDICTING GLOMERULAR FILTRATION RATE. ESTIMATED GFR IS NOT APPLICABLE FOR DIALYSIS PATIENTS. Specimen slightly ictericHEPATIC FUNCTION [id number] 07:37:00 Test Item Value Reference Range Comments TOTAL PROTEIN (BEAKER) (test rwhw=636) 5.6 gm/dL 6.0-8.3 ALBUMIN (BEAKER) (test pfpf=8591) 2.7 g/dL 3.5-5.0 BILIRUBIN TOTAL (BEAKER) (test fcej=755) 2.9 mg/dL 0.2-1.2 BILIRUBIN DIRECT (BEAKER) (test iqte=565) 2.0 mg/dL 0.1-0.5 ALKALINE PHOSPHATASE (BEAKER) (test oowj=320) 120 U/L 40-150 AST (SGOT) (BEAKER) (test ojut=905) 39 U/L 5-34 ALT (SGPT) (BEAKER) (test feul=227) 44 U/L 6-55 Specimen slightly ictericPROTHROMBIN [id number] 07:07:00 Test Item Value Reference Range Comments PROTIME (BEAKER) (test uizs=237) 14.7 seconds 11.7-14.7 INR (BEAKER) (test xiui=070) 1.2 <=5.9 RECOMMENDED COUMADIN/WARFARIN INR THERAPY RANGESSTANDARD DOSE: 2.0 - 3.0 Includes: PROPHYLAXIS forvenous thrombosis, systemic embolization; TREATMENT for venous thrombosis and/or pulmonary embolus.HIGH RISK: Target INR is 2.5-3.5 for patients with mechanical heart valves.CBC W/PLT COUNT & AUTO [id number] 06:58:00 Test Item Value Reference Range Comments WHITE BLOOD CELL COUNT (BEAKER) (test ogfd=057) 4.4 K/ L 3.5-10.5 RED BLOOD CELL COUNT (BEAKER) (test xvbi=329) 3.28 M/ L 4.63-6.08 HEMOGLOBIN (BEAKER) (test ldnn=852) 10.3 GM/DL 13.7-17.5 HEMATOCRIT (BEAKER) (test bdnl=798) 32.9 % 40.1-51.0 MEAN CORPUSCULAR VOLUME (BEAKER) (test uvkx=692) 100.3 fL 79.0-92.2 MEAN CORPUSCULAR HEMOGLOBIN (BEAKER) (test 31.4 pg 25.7-32.2 llsc=340) MEAN CORPUSCULAR HEMOGLOBIN CONC (BEAKER) (test 31.3 GM/DL 32.3-36.5 eiyq=611) RED CELL DISTRIBUTION WIDTH (BEAKER) (test 15.9 % 11.6-14.4 xyox=785) PLATELET COUNT (BEAKER) (test lpys=862) 152 K/CU MM 150-450 MEAN PLATELET VOLUME (BEAKER) (test qnav=533) 11.8 fL 9.4-12.4 NUCLEATED RED BLOOD CELLS (BEAKER) (test 0 /100 WBC 0-0 jxvp=833) NEUTROPHILS RELATIVE PERCENT (BEAKER) (test 65 % zyzz=327) LYMPHOCYTES RELATIVE PERCENT (BEAKER) (test 19 % vihm=723) MONOCYTES RELATIVE PERCENT (BEAKER) (test 7 % wrbq=375) EOSINOPHILS RELATIVE PERCENT (BEAKER) (test 8 % hqgg=352) BASOPHILS RELATIVE PERCENT (BEAKER) (test 1 % jvrf=391) NEUTROPHILS ABSOLUTE COUNT (BEAKER) (test 2.86 K/ L 1.78-5.38 blzk=752) LYMPHOCYTES ABSOLUTE COUNT (BEAKER) (test 0.83 K/ L 1.32-3.57 lahn=619) MONOCYTES ABSOLUTE COUNT (BEAKER) (test 0.32 K/ L 0.30-0.82 dioj=572) EOSINOPHILS ABSOLUTE COUNT (BEAKER) (test 0.33 K/ L 0.04-0.54 dhwg=805) BASOPHILS ABSOLUTE COUNT (BEAKER) (test 0.02 K/ L 0.01-0.08 xhej=929) IMMATURE GRANULOCYTES-RELATIVE PERCENT (BEAKER) 1 % 0-1 (test apng=1322) POCT-GLUCOSE [id number] 06:01:00 Test Item Value Reference Range Comments POC-GLUCOSE METER (BEAKER) 131 mg/dL 70-110 TESTED AT [address] (test bltl=3514) [place] [address] POCT-GLUCOSE [id number] 05:39:00 Test Item Value Reference Range Comments POC-GLUCOSE METER (BEAKER) 58 mg/dL 70-110 Notified YOUNG CLIFFORD/TESTED AT [facility] (test enou=4815) [address] [place] [address] POCT-GLUCOSE [id number] 23:47:00 Test Item Value Reference Range Comments POC-GLUCOSE METER (BEAKER) 93 mg/dL 70-110 TESTED AT [address] (test mjgm=3359) [place] [address] RAD, CHEST, 1 VIEW, NON [id number] 21:34:00Reason for exam:->coughShould this be performed at the bedside?->YesFINAL REPORT Portable chest. HISTORY: Cough. COMPARISON STUDY: None available. FINDINGS: The cardiac silhouette is unremarkable. Mild interstitial markings are seen. There is a pacer device. Blunting of the left costophrenic angle seen. No pneumothorax is noted. Degenerative changes are seen. IMPRESSION: Interstitial markings with atelectasis or consolidation in the left lung base. Signed: Cresencio Gotti MDReport Verified Date/Time: 10/18/2017 21:34:29 Reading Location: [facility] C013W Consult Reading Room POCT-GLUCOSE [id number] 18:43:00 Test Item Value Reference Range Comments POC-GLUCOSE METER (BEAKER) 144 mg/dL 70-110 TESTED AT [address] (test fxen=9310) [place] [id number] POCT-GLUCOSE [id number] 17:36:00 Test Item Value Reference Range Comments POC-GLUCOSE METER (BEAKER) 51 mg/dL 70-110 Notified YOUNG CLIFFORD/TESTED AT [facility] (test pztj=0601) [address] [place] [address] HEMOGLOBIN [id number] 13:54:00 Test Item Value Reference Range Comments HEMOGLOBIN A1C (BEAKER) (test qkza=906) 6.4 % 4.3-6.1 POCT-GLUCOSE [id number] 12:24:00 Test Item Value Reference Range Comments POC-GLUCOSE METER (BEAKER) 96 mg/dL 70-110 TESTED AT [address] (test yffo=0320) [place] [id number] POCT-GLUCOSE [id number] 06:32:00 Test Item Value Reference Range Comments POC-GLUCOSE METER (BEAKER) 105 mg/dL 70-110 TESTED AT [address] (test emoa=3151) [place] [address] [id number] 06:20:00 Test Item Value Reference Range Comments PHOSPHORUS (BEAKER) (test xnze=498) 1.7 mg/dL 2.3-4.7 [id number] 06:20:00 Test Item Value Reference Range Comments MAGNESIUM (BEAKER) (test fuab=120) 1.7 mg/dL 1.6-2.6 BASIC METABOLIC [id number] 06:20:00 Test Item Value Reference Range Comments SODIUM (BEAKER) (test 138 meq/L 136-145 jeqy=493) POTASSIUM (BEAKER) (test 3.9 meq/L 3.5-5.1 lszt=482) CHLORIDE (BEAKER) (test 110 meq/L 98-107 qors=328) CO2 (BEAKER) (test 21 meq/L 22-29 dmpg=712) BLOOD UREA NITROGEN 26 mg/dL 7-21 (BEAKER) (test ttpx=764) CREATININE (BEAKER) (test 1.71 mg/dL 0.57-1.25 pidl=321) GLUCOSE RANDOM (BEAKER) 97 mg/dL 70-105 (test yoxb=437) CALCIUM (BEAKER) (test 8.6 mg/dL 8.4-10.2 qaqn=545) EGFR (BEAKER) (test 38 mL/min/1.73 sq m ESTIMATED GFR IS NOT cwcq=8230) ACCURATE CREATININE CLEARANCE IN PREDICTING GLOMERULAR FILTRATION RATE. ESTIMATED GFR IS NOT APPLICABLE FOR DIALYSIS PATIENTS. Specimen slightly ictericHEPATIC FUNCTION [id number] 06:20:00 Test Item Value Reference Range Comments TOTAL PROTEIN (BEAKER) (test yyxg=065) 5.8 gm/dL 6.0-8.3 ALBUMIN (BEAKER) (test qhbi=3279) 2.9 g/dL 3.5-5.0 BILIRUBIN TOTAL (BEAKER) (test apsf=757) 3.6 mg/dL 0.2-1.2 BILIRUBIN DIRECT (BEAKER) (test paun=247) 2.8 mg/dL 0.1-0.5 ALKALINE PHOSPHATASE (BEAKER) (test pbkk=047) 125 U/L 40-150 AST (SGOT) (BEAKER) (test sesn=429) 39 U/L 5-34 ALT (SGPT) (BEAKER) (test qest=468) 54 U/L 6-55 Specimen slightly ictericPROTHROMBIN [id number] 05:55:00 Test Item Value Reference Range Comments PROTIME (BEAKER) (test gesd=331) 15.3 seconds 11.7-14.7 INR (BEAKER) (test qddc=091) 1.2 <=5.9 RECOMMENDED COUMADIN/WARFARIN INR THERAPY RANGESSTANDARD DOSE: 2.0 - 3.0 Includes: PROPHYLAXIS forvenous thrombosis, systemic embolization; TREATMENT for venous thrombosis and/or pulmonary embolus.HIGH RISK: Target INR is 2.5-3.5 for patients with mechanical heart valves.CBC W/PLT COUNT & AUTO [id number] 05:55:00 Test Item Value Reference Range Comments WHITE BLOOD CELL COUNT (BEAKER) (test ubdk=228) 4.6 K/ L 3.5-10.5 RED BLOOD CELL COUNT (BEAKER) (test bnfg=991) 3.17 M/ L 4.63-6.08 HEMOGLOBIN (BEAKER) (test purh=292) 10.0 GM/DL 13.7-17.5 HEMATOCRIT (BEAKER) (test fhic=607) 31.8 % 40.1-51.0 MEAN CORPUSCULAR VOLUME (BEAKER) (test nvhj=752) 100.3 fL 79.0-92.2 MEAN CORPUSCULAR HEMOGLOBIN (BEAKER) (test 31.5 pg 25.7-32.2 vswl=800) MEAN CORPUSCULAR HEMOGLOBIN CONC (BEAKER) (test 31.4 GM/DL 32.3-36.5 obgz=833) RED CELL DISTRIBUTION WIDTH (BEAKER) (test 15.9 % 11.6-14.4 msco=387) PLATELET COUNT (BEAKER) (test qncz=525) 126 K/CU MM 150-450 MEAN PLATELET VOLUME (BEAKER) (test bhxv=964) 11.9 fL 9.4-12.4 NUCLEATED RED BLOOD CELLS (BEAKER) (test 0 /100 WBC 0-0 dnzr=162) NEUTROPHILS RELATIVE PERCENT (BEAKER) (test 70 % pxii=715) LYMPHOCYTES RELATIVE PERCENT (BEAKER) (test 15 % zbpn=047) MONOCYTES RELATIVE PERCENT (BEAKER) (test 6 % gqae=476) EOSINOPHILS RELATIVE PERCENT (BEAKER) (test 7 % tvce=292) BASOPHILS RELATIVE PERCENT (BEAKER) (test 1 % qspz=693) NEUTROPHILS ABSOLUTE COUNT (BEAKER) (test 3.21 K/ L 1.78-5.38 neih=003) LYMPHOCYTES ABSOLUTE COUNT (BEAKER) (test 0.70 K/ L 1.32-3.57 nqbv=898) MONOCYTES ABSOLUTE COUNT (BEAKER) (test 0.29 K/ L 0.30-0.82 ueqe=170) EOSINOPHILS ABSOLUTE COUNT (BEAKER) (test 0.33 K/ L 0.04-0.54 llak=515) BASOPHILS ABSOLUTE COUNT (BEAKER) (test 0.03 K/ L 0.01-0.08 qeky=036) IMMATURE GRANULOCYTES-RELATIVE PERCENT (BEAKER) 0 % 0-1 (test keqd=1480)
--- OUTSIDE RECORDS SUMMARY | 2018-02-28 13:44 | XMS REPORT | Clinical Summary ---
:1930 Author Organization [facility] Address [address] [place] [address] Care Team Providers Name Role Phone Unavailable Primary Care Provider Unavailable Allergies No Known Allergies Medications Medication Sig Dispensed Refills Start Date End Date Status aspirin 81 MG EC tablet Take 81 mg by 0 Active mouth daily. furosemide (LASIX) 20 MG Take 20 mg by 0 Active tablet mouth every Saturday, Saturday, Saturday. losartan (COZAAR) 50 MG Take 50 mg by 0 Active tablet mouth daily. glimepiride (AMARYL) 4 MG Take 4 mg by 0 Active tablet mouth every morning before breakfast. allopurinol (ZYLOPRIM) 300 Take 300 mg 0 Active MG tablet by mouth daily. vit A/vit C/vit Take 1 tablet 0 Active E/zinc/copper (PRESERVISION by mouth. AREDS ORAL) carboxymethylcellulose 1 drop 0 Active (REFRESH LIQUIGEL) 1 % nightly ophthalmic solution Instill to right eye . carboxymethylcellulose Apply 1 drop 0 Active sodium (REFRESH TEARS) 0.5 % to eye(s) 4 Drop (four) times daily Right eye . Active Problems Problem Noted Date Elevated liver enzymes 10/18/2017 Encounters Date Type Specialty Care Team Description 10/21/2017 Anesthesia Event Gastroenterology Miranda Cote, SHAUN 10/21/2017 Surgery Gastroenterology Jax Lundberg ERCP,BALLOON SWEEPING MD Leslie 10/19/2017 Anesthesia Event Gastroenterology Arti Jade CRNA 10/19/2017 Surgery Gastroenterology Jax Lundberg,PAPILLOTOMY MD Leslie 10/17/2017 [facility] Elevated liver enzymes; - Encounter Medicine MD Jeanette Type 2 diabetes mellitus without complication, without long-term current use of insulin (HCC); 10/22/2017 Bharath, S/P cholecystectomy MD Osei Dong Neeraj, MD Nalam, Raina Gutierrez MD after 02/27/2017 Social History Tobacco Use Types Packs/Day Years Used Date Former Smoker Smokeless Tobacco: Never Used Alcohol Use Drinks/Week oz/Week Comments Yes Sex Assigned at Date Recorded Not on file Job Start Date Occupation Industry Not on file Not on file Not on file Travel History Travel Start Travel End No recent travel history available. Last Filed Vital Signs Vital Sign Reading Time Taken Blood Pressure 111/61 10/22/2017 11:43 AM CDT Pulse 76 10/22/2017 11:43 AM CDT Temperature 36.6 C (97.8 F) 10/22/2017 11:43 AM CDT Respiratory Rate 19 10/22/2017 11:43 AM CDT Oxygen Saturation 96% 10/22/2017 11:43 AM CDT Inhaled Oxygen Concentration - - Weight 101 kg (222 lb 10.6 oz) 10/18/2017 5:18 AM CDT Height 180.3 cm (5' 11") 10/17/2017 11:42 PM CDT Body Mass Index 31.06 10/18/2017 5:18 AM CDT Plan of Treatment Not on file Implants Implanted Type Area Surgical Nurse Practitioner Device Shelf Model / Identifier Expiration Date Serial / Lot Stent Panc Advanix [id number] Str [id number] - [id number] Stents-Pe [employer] 3753 / Implanted: Qty: 1 on 10/19/2017 by Jax Lundberg MD ripheral / Procedures Procedure Name Priority Date/Time Associated Comments Diagnosis RHYTHM STRIP - SCAN 10/23/2017 1:00 PM CDT POCT-GLUCOSE METER Routine 10/22/2017 8:12 Results for this AM CDT procedure are in the results section. POCT-GLUCOSE METER Routine 10/22/2017 6:00 Results for this AM CDT procedure are in the results section. CBC W/PLT COUNT & AUTO Routine 10/22/2017 5:04 Results for this DIFFERENTIAL AM CDT procedure are in the results section. PHOSPHORUS Routine 10/22/2017 5:04 Results for this AM CDT procedure are in the results section. MAGNESIUM Routine 10/22/2017 5:04 Results for this AM CDT procedure are in the results section. COMPREHENSIVE Routine 10/22/2017 5:04 Results for this METABOLIC PANEL AM CDT procedure are in the results section. CBC W/PLT COUNT & AUTO Routine 10/22/2017 5:04 Results for this DIFFERENTIAL AM CDT procedure are in the results section. POCT-GLUCOSE METER Routine 10/21/2017 11:57 Results for this PM CDT procedure are in the results section. POCT-GLUCOSE METER Routine 10/21/2017 7:18 Results for this PM CDT procedure are in the results section. REPORT OF PROCEDURE - 10/21/2017 7:01 ENDOSCOPY URL PM CDT FL ERCP Routine 10/21/2017 6:54 Results for this PM CDT procedure are in the results section. ERCP 10/21/2017 5:00 Abnormal finding on PM CDT imaging PROCEDURE W/ C-ARM 10/21/2017 5:00 Abnormal finding on PM CDT imaging ERCP,BALLOON SWEEPING 10/21/2017 5:00 Abnormal finding on PM CDT imaging COMPREHENSIVE Routine 10/21/2017 12:08 Results for this METABOLIC PANEL PM CDT procedure are in the results section. POCT-GLUCOSE METER Routine 10/21/2017 11:36 Results for this AM CDT procedure are in the results section. POCT-GLUCOSE METER Routine 10/21/2017 8:04 Results for this AM CDT procedure are in the results section. CBC W/PLT COUNT & AUTO Routine 10/21/2017 5:59 Results for this DIFFERENTIAL AM CDT procedure are in the results section. CBC W/PLT COUNT & AUTO Routine 10/21/2017 5:59 Results for this DIFFERENTIAL AM CDT procedure are in the results section. POCT-GLUCOSE METER Routine 10/20/2017 10:46 Results for this PM CDT procedure are in the results section. POCT-GLUCOSE METER Routine 10/20/2017 4:55 Results for this PM CDT procedure are in the results section. POCT-GLUCOSE METER Routine 10/20/2017 12:02 Results for this PM CDT procedure are in the results section. POCT-GLUCOSE METER Routine 10/20/2017 7:46 Results for this AM CDT procedure are in the results section. CBC W/PLT COUNT & AUTO Routine 10/20/2017 4:41 Results for this DIFFERENTIAL AM CDT procedure are in the results section. B-TYPE NATRIURETIC Routine 10/20/2017 4:41 Results for this FACTOR (BNP) AM CDT procedure are in the results section. CBC W/PLT COUNT & AUTO Routine 10/20/2017 4:41 Results for this DIFFERENTIAL AM CDT procedure are in the results section. PHOSPHORUS Routine 10/20/2017 4:41 Results for this AM CDT procedure are in the results section. MAGNESIUM Routine 10/20/2017 4:41 Results for this AM CDT procedure are in the results section. PROTHROMBIN TIME/INR Routine 10/20/2017 4:41 Results for this AM CDT procedure are in the results section. HEPATIC FUNCTION PANEL Routine 10/20/2017 4:41 Results for this AM CDT procedure are in the results section. BASIC METABOLIC PANEL Routine 10/20/2017 4:41 Results for this (7) AM CDT procedure are in the results section. POCT-GLUCOSE METER Routine 10/19/2017 10:15 Results for this PM CDT procedure are in the results section. POCT-GLUCOSE METER Routine 10/19/2017 5:03 Results for this PM CDT procedure are in the results section. POCT-GLUCOSE METER Routine 10/19/2017 11:13 Results for this AM CDT procedure are in the results section. REPORT OF PROCEDURE - 10/19/2017 10:41 ENDOSCOPY URL AM CDT [place] ENVELOPE MACHINE ADJUSTER IN OR 30 Routine 10/19/2017 10:37 Results for this MINUTE INCREMENTS AM CDT procedure are in the results section. ERCP,PANCREATIC STENT 10/19/2017 9:00 Jaundice AM CDT PROCEDURE W/ C-ARM 10/19/2017 9:00 Jaundice AM CDT ERCP,PAPILLOTOMY 10/19/2017 9:00 Jaundice AM CDT POCT-GLUCOSE METER Routine 10/19/2017 5:58 Results for this AM CDT procedure are in the results section. POCT-GLUCOSE METER Routine 10/19/2017 5:37 Results for this AM CDT procedure are in the results section. CBC W/PLT COUNT & AUTO Routine 10/19/2017 5:30 Results for this DIFFERENTIAL AM CDT procedure are in the results section. CBC W/PLT COUNT & AUTO Routine 10/19/2017 5:30 Results for this DIFFERENTIAL AM CDT procedure are in the results section. VITAMIN B12 AND FOLATE Routine 10/19/2017 5:30 Results for this AM CDT procedure are in the results section. PHOSPHORUS Routine 10/19/2017 5:30 Results for this AM CDT procedure are in the results section. MAGNESIUM Routine 10/19/2017 5:30 Results for this AM CDT procedure are in the results section. PROTHROMBIN TIME/INR Routine 10/19/2017 5:30 Results for this AM CDT procedure are in the results section. HEPATIC FUNCTION PANEL Routine 10/19/2017 5:30 Results for this AM CDT procedure are in the results section. BASIC METABOLIC PANEL Routine 10/19/2017 5:30 Results for this (7) AM CDT procedure are in the results section. POCT-GLUCOSE METER Routine 10/18/2017 11:42 Results for this PM CDT procedure are in the results section. POCT-GLUCOSE METER Routine 10/18/2017 6:40 Results for this PM CDT procedure are in the results section. XR CHEST 1 VIEW Routine 10/18/2017 6:12 Results for this PORTABLE/BEDSIDE PM CDT procedure are in the results section. POCT-GLUCOSE METER Routine 10/18/2017 5:34 Results for this PM CDT procedure are in the results section. POCT-GLUCOSE METER Routine 10/18/2017 12:22 Results for this PM CDT procedure are in the results section. POCT-GLUCOSE METER Routine 10/18/2017 6:29 Results for this AM CDT procedure are in the results section. CBC W/PLT COUNT & AUTO Routine 10/18/2017 5:27 Results for this DIFFERENTIAL AM CDT procedure are in the results section. CBC W/PLT COUNT & AUTO Routine 10/18/2017 5:27 Results for this DIFFERENTIAL AM CDT procedure are in the results section. PHOSPHORUS Routine 10/18/2017 5:27 Results for this AM CDT procedure are in the results section. MAGNESIUM Routine 10/18/2017 5:27 Results for this AM CDT procedure are in the results section. PROTHROMBIN TIME/INR Routine 10/18/2017 5:27 Results for this AM CDT procedure are in the results section. HEPATIC FUNCTION PANEL Routine 10/18/2017 5:27 Results for this AM CDT procedure are in the results section. BASIC METABOLIC PANEL Routine 10/18/2017 5:27 Results for this (7) AM CDT procedure are in the results section. HEMOGLOBIN A1C Routine 10/18/2017 5:27 Results for this AM CDT procedure are in the results section. after 02/27/2017 Results RHYTHM STRIP - SCAN (10/23/2017 1:00 PM CDT) Narrative Performed At POC-Glucose meter (10/22/2017 8:12 AM CDT)Only the most recent of20 resultswithin the time period is included. POC-Glucose Meter 107Comment: TESTED AT 70 - 110 mg/dL [facility] [address] [facility] [address] Specimen Blood Performing Organization Address City/State/Zipcode Phone Number [address] [phone] CENTER CBC with platelet count + automated diff (10/22/2017 5:04 AM CDT)Only the most recent of5 resultswithin the time period is included. WBC 3.9 3.5 - 10.5 K/L [facility] RBC 3.32 (L) 4.63 - 6.08 M/L [facility] Hemoglobin 10.5 (L) 13.7 - 17.5 GM/DL [facility] Hematocrit 32.9 (L) 40.1 - 51.0 % [facility] MCV 99.1 (H) 79.0 - 92.2 fL [facility] MCH 31.6 25.7 - 32.2 pg [facility] MCHC 31.9 (L) 32.3 - 36.5 GM/DL [facility] RDW 15.3 (H) 11.6 - 14.4 % [facility] Platelets 138 (L) 150 - 450 K/CU MM [facility] MPV 11.9 9.4 - 12.4 fL [facility] nRBC 0 0 - 0 /100 WBC [facility] % Neutros 58 % [facility] % Lymphs 27 % [facility] % Monos 11 % [facility] % Eos 3 % [facility] % Baso 1 % [facility] # Neutros 2.26 1.78 - 5.38 K/L [facility] # Lymphs 1.06 (L) 1.32 - 3.57 K/L [facility] # Monos 0.43 0.30 - 0.82 K/L [facility] # Eos 0.13 0.04 - 0.54 K/L [facility] # Baso 0.02 0.01 - 0.08 K/L [facility] Immature Granulocytes-Relative 0 0 - 1 % [facility] Specimen Blood - Arm, Left Performing Organization Address City/[facility] [place] Phone Number [address] [address] CENTER Phosphorus (10/22/2017 5:04 AM CDT)Only the most recent of4 resultswithin the time period is included. Phosphorus 3.2 2.3 - 4.7 mg/dL [facility] Specimen Blood - Arm, Left Performing Organization Address City/[facility] [place] Phone Number [address] [address] CENTER Magnesium (10/22/2017 5:04 AM CDT)Only the most recent of4 resultswithin the time period is included. Magnesium 1.7 1.6 - 2.6 mg/dL [facility] Specimen Blood - Arm, Left Performing Organization Address City/[facility]/Zipcode Phone Number [address] [address] CENTER Comprehensive metabolic panel (10/22/2017 5:04 AM CDT)Only the most recent of2 resultswithin the time period is included. Protein, Total 6.2 6.0 - 8.3 gm/dL [facility] Albumin 2.9 (L) 3.5 - 5.0 g/dL [facility] Alkaline Phosphatase 116 40 - 150 U/L [facility] Total Bilirubin 1.9 (H) 0.2 - 1.2 mg/dL [facility] Sodium 137 136 - 145 meq/L [facility] Potassium 3.9 3.5 - 5.1 meq/L [facility] Chloride 103 98 - 107 meq/L [facility] CO2 24 22 - 29 meq/L [facility] BUN 22 (H) 7 - 21 mg/dL [facility] Creatinine 1.38 (H) 0.57 - 1.25 mg/dL [facility] Glucose 113 (H) 70 - 105 mg/dL [facility] Calcium 9.3 8.4 - 10.2 mg/dL [facility] AST 37 (H) 5 - 34 U/L [facility] ALT 34 6 - 55 U/L [facility] EGFR 49Comment: ESTIMATED GFR mL/min/1.[address] [facility] IS NOT ACCURATE [facility] CREATININE CLEARANCE IN PREDICTING GLOMERULAR FILTRATION RATE. ESTIMATED GFR IS NOT APPLICABLE FOR DIALYSIS PATIENTS. Specimen Blood - Arm, Left Performing Organization Address City/State/Zipcode Phone Number [facility] [address] [place] [address] CENTER REPORT OF PROCEDURE - ENDOSCOPY URL (10/21/2017 7:01 PM CDT) Narrative Performed At [place] ERCP (10/21/2017 6:54 PM CDT) Narrative Performed At FINAL REPORT GE RIS ERCP 6 views 10/21/2017 7:52 PM CLINICAL HISTORY: Instrument localization COMPARISON: None available IMPRESSION: Please correlate imaging report findings with the procedure note prepared by Dr. Lundberg, as an intra-procedure imaging consultation was not requested. Reported fluoroscopy time: 96.4 seconds. Signed: Viktor Beckford MD Report Verified Date/Time:10/21/2017 19:53:14 Reading Location: [facility] Radiology Reading Room Procedure Note Interface, External Ris In - 10/21/2017 7:55 PM CDT FINAL REPORT ERCP 6 views 10/21/2017 7:52 PM CLINICAL HISTORY: Instrument localization COMPARISON: None available IMPRESSION: Please correlate imaging report findings with the procedure note prepared by Dr. Lundberg, as an intra-procedure imaging consultation was not requested. Reported fluoroscopy time: 96.4 seconds. Signed: Viktor Beckford MD Report Verified Date/Time: 10/21/2017 19:53:14 Reading Location: [facility] Radiology Reading Room Performing Organization Address City/[facility]/Zipcode Phone Number RIS Prothrombin time/INR (10/20/2017 4:41 AM CDT)Only the most recent of3 resultswithin the time period is included. Protime 14.3 11.7 - 14.7 seconds [facility] INR 1.1 <=5.9 [facility] Specimen Blood - Arm, Left Narrative Performed At [facility] RECOMMENDED COUMADIN/WARFARIN INR THERAPY RANGES STANDARD DOSE: 2.0 - 3.0 Includes: PROPHYLAXIS for venous thrombosis, systemic embolization; TREATMENT for venous thrombosis and/or pulmonary embolus. HIGH RISK: Target INR is 2.5-3.5 for patients with mechanical heart valves. Performing Organization Address City/State/Zipcode Phone Number [facility] [address] [place] [address] CENTER B-type Natriuretic Factor (BNP) (10/20/2017 4:41 AM CDT) BNP 319 (H) 0 - 100 pg/mL [facility] Specimen Blood - Arm, Left Performing Organization Address [facility] Phone Number [facility] [address], [place] [phone] [place] Hepatic function panel (10/20/2017 4:41 AM CDT)Only the most recent of3 resultswithin the time period is included. Protein, Total 5.8 (L)Comment: Specimen 6.0 - 8.3 gm/dL [facility] slightly hemolyzed [facility] Albumin 2.8 (L)Comment: Specimen 3.5 - 5.0 g/dL [facility] Total Bilirubin 2.3 (H)Comment: Specimen 0.2 - 1.2 mg/dL [facility] Bilirubin, Direct 1.5 (H)Comment: Specimen 0.1 - 0.5 mg/dL [facility] Alkaline Phosphatase 121 40 - 150 U/L [facility] AST 43 (H)Comment: Specimen 5 - 34 U/L [facility] ALT 42Comment: Specimen 6 - 55 U/L [facility] Specimen Blood - Arm, Left Performing Organization Address [facility] [place] Phone Number [facility] [address] [place] [address] [phone] [place] Basic metabolic panel (10/20/2017 4:41 AM CDT)Only the most recent of3 resultswithin the time period is included. Sodium 139 136 - 145 meq/L [facility] Potassium 4.3Comment: Specimen slightly 3.5 - 5.1 meq/L [facility] Chloride 111 (H) 98 - 107 meq/L [facility] CO2 20 (L) 22 - 29 meq/L [facility] BUN 21 7 - 21 mg/dL [facility] Creatinine 1.24Comment: Specimen 0.57 - 1.25 mg/dL [facility] slightly hemolyzed [facility] Glucose 87 70 - 105 mg/dL [facility] Calcium 9.1 8.4 - 10.2 mg/dL [facility] EGFR 55Comment: ESTIMATED GFR IS mL/min/1.73 sq m [facility] NOT ACCURATE CREATININE [facility] CLEARANCE IN PREDICTING GLOMERULAR FILTRATION RATE. ESTIMATED GFR IS NOT APPLICABLE FOR DIALYSIS PATIENTS. Specimen Blood - Arm, Left Performing Organization Address City/[facility] Phone Number [facility] [address] [place] [address] CENTER REPORT OF PROCEDURE - ENDOSCOPY URL (10/19/2017 10:41 AM CDT) Narrative Performed At [place] Die Storage Clerk in OR 30 minute increments (10/19/2017 10:37 AM CDT) Narrative Performed At FINAL REPORT [facility] Fluoroscopic images were acquired for procedural assistance. Fluoroscopy time 3.3 minutes. Fluoroscopic images 3. Fluoroscopic assistance was used during ERCP. Because images were not submitted for interpretation, see separate report by the referring physician for clinical details and imaging interpretation. Signed: Trinity Joshi MD Report Verified Date/Time:10/19/2017 11:29:01 Reading Location: [facility] C0[facility] Consult Reading Room Procedure Note Interface, External Ris In - 10/19/2017 11:31 AM CDT FINAL REPORT Fluoroscopic images were acquired for procedural assistance. Fluoroscopy time 3.3 minutes. Fluoroscopic images 3. Fluoroscopic assistance was used during ERCP. Because images were not submitted for interpretation, see separate report by the referring physician for clinical details and imaging interpretation. Signed: Trinity Joshi MD Report Verified Date/Time: 10/19/2017 11:29:01 Reading Location: [facility] C013 Ortho Consult Reading Room Performing Organization Address City/[facility]/Zipcode Phone Number R[facility] Vitamin B12 and Folate (10/19/2017 5:30 AM CDT) Vitamin B12 433 213 - 816 pg/mL [facility] Folate 11.5 >=7.0 ng/mL [facility] Specimen Blood - Arm, Left Performing Organization Address [facility]/Zipcode Phone Number [facility] [address] [place] [address] [phone] CENTER XR chest 1 view portable / bedside (10/18/2017 6:12 PM CDT) Narrative Performed At FINAL REPORT RIS Portable chest. HISTORY: Cough. COMPARISON STUDY: None available. FINDINGS: The cardiac silhouette is unremarkable. Mild interstitial markings are seen. There is a pacer device. Blunting of the left costophrenic angle seen. No pneumothorax is noted. Degenerative changes are seen. IMPRESSION: Interstitial markings with atelectasis or consolidation in the left lung base. Signed: Cresencio Gotti MD Report Verified Date/Time:10/18/2017 21:34:29 Reading Location: [facility] C0[facility] Consult Reading Room Procedure Note Interface, External Ris In - 10/18/2017 9:36 PM CDT FINAL REPORT Portable chest. HISTORY: Cough. COMPARISON STUDY: None available. FINDINGS: The cardiac silhouette is unremarkable. Mild interstitial markings are seen. There is a pacer device. Blunting of the left costophrenic angle seen. No pneumothorax is noted. Degenerative changes are seen. IMPRESSION: Interstitial markings with atelectasis or consolidation in the left lung base. Signed: Cresencio Gotti MD Report Verified Date/Time: 10/18/2017 21:34:29 Reading Location: [facility] [id number] Consult Reading Room Performing Organization Address City/[facility]/Zipcode Phone Number GE RIS Hemoglobin A1c (10/18/2017 5:27 AM CDT) Hemoglobin A1C 6.4 (H) 4.3 - 6.1 % [facility] Specimen Blood - Arm, Right Performing Organization Address City/State/Zipcode Phone Number [facility] [address] [place] [address] CENTER after 02/27/2017 Insurance Payer Benefit Plan / Group Subscriber ID Type Phone Address MEDICARE MEDICARE A B xxxxxxxxxx Medicare OTHER-COMMERCIAL GENERIC COMMERCIAL xxxxxxxxx Advance Directives For more information, please contact:[address] [phone] Code Status Date Activated Date Inactivated Comments Full Code 10/18/2017 2:09 AM 10/22/2017 4:35 PM This code status was determined by: Patient
--- NOTE | 2018-02-28 14:40 | RAD REPORT ---
EXAM DESCRIPTION: CT - Head C Spine Mpr Wo Con - 02/28/2018 2:07 pm CLINICAL HISTORY: Head and neck injury status post fall. Head and neck pain COMPARISON: None. TECHNIQUE: Computed axial tomography of the head and cervical spine was obtained. Sagittal and coronal reconstruction was performed. All CT scans are performed using dose optimization technique as appropriate and may include automated exposure control or mA/KV adjustment according to patient size. FINDINGS: Small posterior scalp swelling. An underlying skull fracture is not seen. An intracranial bleed is not seen. The ventricles are normal in caliber. An extra-axial fluid collect ion is not noted.Fluid within the visualized sinuses and mastoids is not seen A cervical fracture is not visualized. No dislocation is noted. Spondylosis involves the cervical spi ne which results in moderate to marked narrowing of bilateral neural foramina. 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 A cervical fracture is not visualized. If the patient continues to have symptoms to suggest intracra nial /spinal cord pathology then MRI would be recommended
[2018-02-28 15:49] LABS: Absolute Lymphocytes (CBC) 1.7 K/uL (0.7-4.9); Absolute Monocytes 0.5 K/uL (0.1-1.3); Absolute Neutrophil 6.8 K/uL (1.8-8.0); Basophils % 0.7 % (0-1.3); Eosinophils % 1.5 % (0-4.4); Hematocrit 40.4 % (39.6-49.0); Lymphocytes % 18.2 % (15.3-44.8); MPV 10.5 fL (7.6-11.3); Monocytes % 5.9 % (3.3-12.3); RBC Red Blood Cell Count 4.09 M/uL (4.33-5.43)
[2018-02-28 16:15] LABS: Potassium 5.5 mmol/L (3.5-5.1)
[2018-02-28] MEDS ORDERED: D50W 25 GM/50 ML SYRINGE IV ONE (16:53)
[2018-02-28] MEDS ORDERED: INSULIN -REGULAR HUMAN 50 UNIT/0.5 ML ML ONE (16:53)
[2018-02-28] MEDS ORDERED: ALBUTEROL 2.5 MG/3 ML NEB SOL ONE (16:53)
[2018-02-28] MEDS ORDERED: NA CHLORIDE 0.9% 1,000 ML ONE (16:53)
[2018-02-28] MEDS ORDERED: FUROSEMIDE 40 MG/4 ML VIAL ONE (16:53)
[2018-02-28 17:03] LABS: Urine Blood NEGATIVE (NEG); Urine Glucose NEGATIVE (NEG); Urine Protein NEGATIVE (NEG)
[2018-02-28 18:00] LABS: Potassium 4.1 mmol/L (3.5-5.1)
--- NOTE | 2018-02-28 18:18 | ER ---
Nurse's Notes [facility] Name: Dez Lovett Age: 87 yrs Sex: Male : 1930 Arrival Date: 02/28/2018 Time: 13:43 Bed 13 Private MD: Diagnosis: Contusion of unspecified part of neck;Hyperkalemia Presentation: 02/28 13:43 Presenting complaint: EMS states: Pt was at home putting eye drops in and lost his la1 balance falling backwards,pt has small laceration to back of scalp, denies LOC or use of blood thinners. Pt reports some neck pain and tingling in his right hand since the fall. Transition of care: patient was not received from another setting of care. Onset of symptoms was February 28, 2018. Risk Assessment: Do you want to hurt yourself or someone else? Patient reports no desire to harm self or others. Initial Sepsis Screen: Does the patient meet any 2 criteria? No. Patient's initial sepsis screen is negative. Does the patient have a suspected source of infection? No. Patient's initial sepsis screen is negative. Care prior to arrival: None. 13:43 Method Of Arrival: EMS: [place] [id number] 13:43 Acuity: GOYO 3 la1 18:50 Mechanism of Injury: Fall. Trauma event details: Injury occurred in the county [place] [address] Historical: - Allergies: 13:46 No Known Allergies; la1 - PMHx: 13:46 Diabetes - NIDDM; Gout; Hypertension; la1 - Immunization history:: Adult Immunizations up to date. - Social history:: Smoking status: Patient/guardian denies using tobacco. - Immunization history: Last tetanus immunization: - up to date. - Ebola Screening: : No symptoms or risks identified at this time. Screenin:57 Abuse screen: Denies threats or abuse. Nutritional screening: No deficits noted. la1 Tuberculosis screening: No symptoms or risk factors identified. 18:44 Fall Risk Fall in past 12 months (25 points). No secondary diagnosis (0 pts). IV access la1 (20 points). Ambulatory Aid- None/Bed Rest/Nurse Assist (0 pts). Total Vu Fall Scale indicates Low Risk Score (25-44 pts). Family Present and informed to notify staff if they need to leave bedside. Primary Survey: 13:46 NO uncontrolled hemorrhage observed. A: The patient is alert. Airway: patent, No la1 supplemental oxygen in use on arrival. Oral cavity: clear, Trachea midline. Breathing/Chest: Respiratory pattern: regular, Respiratory effort: spontaneous, unlabored, Breath sounds: clear, bilaterally. Chest inspection: symmetrical rise and fall of the chest. Circulation: Skin color: pink, Skin temperature: warm. Disability Alert. Exposure/Environment: A warming method has been applied: A warm blanket has been provided to the patient. 13:57 Reassessment Airway Airway Patent Breathing/Chest Respiratory pattern Regular la1 Respiratory effort Spontaneous Unlabored Circulation Temperature Warm Disability Alert. 14:50 Reassessment Airway Airway Patent Breathing/Chest Respiratory pattern Regular la1 Respiratory effort Spontaneous Unlabored Circulation Color [place] Temperature Warm Disability Alert. 16:56 Reassessment Airway Airway Patent Breathing/Chest Respiratory pattern Regular la1 Respiratory effort Spontaneous Unlabored Circulation Color [place] Temperature Warm Disability Alert. 17:48 Reassessment Airway Airway Patent Breathing/Chest Respiratory pattern Regular la1 Respiratory effort Spontaneous Unlabored Circulation Color [place] Temperature Warm Disability Alert. 18:43 Reassessment Airway Airway Patent Breathing/Chest Respiratory pattern Regular la1 Respiratory effort Spontaneous Unlabored Circulation Color [place] Temperature Warm Disability Alert. Secondary Survey: 13:47 HEENT: Head Other Small non-bleeding laceration noted to posterior scalp. la1 Assessment: 13:57 General: Appears in no apparent distress. Behavior is calm, cooperative. Pain: la1 Complains of pain in right hand, left hand and neck. Neuro: Level of Consciousness is awake, alert, obeys commands, Oriented to person, place, time, situation, [employer] are equal bilaterally Moves all extremities. Full function Speech is normal, Facial symmetry appears normal, Pupils are PERRLA. Cardiovascular: Heart tones S1 S2 present Capillary refill < 3 seconds Patient's skin is warm and dry. Respiratory: Airway is patent Respiratory effort is even, unlabored, Respiratory pattern is regular, symmetrical, Breath sounds are clear bilaterally. GI: No signs and/or symptoms were reported involving the gastrointestinal system. : No signs and/or symptoms were reported regarding the genitourinary system. 15:50 Reassessment: Patient appears in no apparent distress at this time. No changes from la1 previously documented assessment. Patient and/or family updated on plan of care and expected duration. Pain level reassessed. Patient is alert, oriented x 3, equal unlabored respirations, skin warm/dry/pink. 16:57 Reassessment: Patient appears in no apparent distress at this time. No changes from la1 previously documented assessment. Patient and/or family updated on plan of care and expected duration. Pain level reassessed. Patient is alert, oriented x 3, equal unlabored respirations, skin warm/dry/pink. 18:43 Reassessment: Patient appears in no apparent distress at this time. No changes from la1 previously documented assessment. Patient and/or family updated on plan of care and expected duration. Pain level reassessed. Patient is alert, oriented x 3, equal unlabored respirations, skin warm/dry/pink. 19:05 Reassessment: Patient appears in no apparent distress at this time. Patient and/or cc3 family updated on plan of care and expected duration. Pain level reassessed. Patient is alert, oriented x 3, equal unlabored respirations, skin warm/dry/pink. Received this male patient from morning shift [place] as a case of fall injury with low blood pressure; with IV cannula gauge 20 at the right forearm with ongoing IV bolus of NS 500 mL infusing well. For discharge home once blood pressure is normalized. 20:00 Reassessment: Patient appears in no apparent distress at this time. Patient and/or cc3 family updated on plan of care and expected duration. Pain level reassessed. Patient is alert, oriented x 3, equal unlabored respirations, skin warm/dry/pink. Patient's blood pressure reading of 108/82 mmHg, patient for discharge home, IV cannula removed and patient left ER vitally stable by wheelchair with his son. Vital Signs: 13:46 BP 125 / 72; Pulse 62; Resp 16; Temp 97.8; Pulse Ox 98% on R/A; Weight 92.53 kg; Height la1 5 ft. 11 in. (180.34 cm); 14:50 BP 135 / 78; Pulse 91; Resp 16; Pulse Ox 98% on R/A; la1 16:55 BP 110 / 65; Pulse 68; Resp 18; Pulse Ox 98% on R/A; la1 17:47 BP 119 / 58; Pulse 63; Resp 18; Pulse Ox 98% on R/A; la1 18:49 BP 80 / 58; Pulse 67; Resp 18; Pulse Ox 98% on R/A; la1 19:09 BP 91 / 51; Pulse 64; Resp 16; Temp 97.9(O); Pulse Ox 100% on R/A; cc3 20:00 BP 108 / 82; Pulse 62; Resp 17 S; Pulse Ox 98% on R/A; cc3 13:46 Body Mass Index 28.45 (92.53 kg, 180.34 cm) la1 [place] Score: 13:58 Eye Response: spontaneous(4). Verbal Response: oriented(5). Motor Response: obeys la1 commands(6). Total: 15. Trauma Score (Adult): 13:58 Eye Response: spontaneous(1); Verbal Response: oriented(1); Motor Response: obeys la1 commands(2); Systolic BP: > 89 mm Hg(4); Respiratory Rate: 10 to 29 per min(4); [place] Score: 15; Trauma Score: 12 14:50 Eye Response: spontaneous(1); Verbal Response: oriented(1); Motor Response: obeys la1 commands(2); Systolic BP: > 89 mm Hg(4); Respiratory Rate: 10 to 29 per min(4); [place] Score: 15; Trauma Score: 12 16:55 Eye Response: spontaneous(1); Verbal Response: oriented(1); Motor Response: obeys la1 commands(2); Systolic BP: > 89 mm Hg(4); Respiratory Rate: 10 to 29 per min(4); [place] Score: 15; Trauma Score: 12 17:47 Eye Response: spontaneous(1); Verbal Response: oriented(1); Motor Response: obeys la1 commands(2); Systolic BP: > 89 mm Hg(4); Respiratory Rate: 10 to 29 per min(4); [place] Score: 15; Trauma Score: 12 ED Course: 13:43 Patient arrived in ED. la1 13:45 Triage completed. la1 13:46 Arm band placed on left wrist. la1 13:51 Eleazar Bruno RN is Primary Nurse. la1 13:55 Joey Adorno PA is PHCP. jr8 13:55 Lincoln Campos MD is Attending Physician. jr8 13:58 Bed in low position. Call light in reach. Side rails up X 1. Adult w/ patient. la1 13:58 Patient maintains SpO2 saturation greater than 95% on room air. la1 13:58 Thermoregulation: warm blanket given to patient. la1 14:07 CT completed. Patient tolerated procedure well. Patient moved to CT via stretcher. vm2 Patient moved back from CT. 14:07 CT Head C Spine In Process Unspecified. EDMS 15:45 Urine collected: clean catch specimen, clear. 5 15:46 Basic Metabolic Panel Sent. 5 15:46 CBC with Diff Sent. 5 15:46 Initial lab(s) drawn, by co, sent to lab. 5 18:43 No provider procedures requiring assistance completed. IV discontinued, intact, la1 bleeding controlled, No redness/swelling at site. Pressure dressing applied. Administered Medications: 16:57 Drug: NS 0.9% 1000 ml Route: IV; Rate: 1000 ml; Site: right forearm; la1 18:44 Follow up: IV Status: Completed infusion la1 16:57 Drug: Albuterol 2.5 mg Route: Inhalation; la1 18:44 Follow up: Response: No adverse reaction la1 16:58 Drug: Lasix 40 mg Route: IVP; Site: right forearm; la1 18:44 Follow up: Response: No adverse reaction la1 16:58 Drug: D50W 50 ml Route: IVP; Site: right forearm; la1 18:44 Follow up: Response: No adverse reaction la1 16:58 Drug: Insulin Regular Human 5 units {Co-Signature: chari Corea Pozo [employer]BER).} Route: IVP; la1 Site: right forearm; 18:44 Follow up: Response: No adverse reaction la1 18:53 Drug: NS 0.9% 500 ml Route: IV; Rate: bolus; Site: right forearm; la1 19:45 Follow up: Response: No adverse reaction; IV Status: Completed infusion; IV Intake: cc3 500ml 18:54 Drug: Albuterol 2.5 mg Route: Inhalation; la1 18:54 Follow up: Response: No adverse reaction la1 18:54 Drug: Albuterol 2.5 mg Route: Inhalation; la1 Point of Care Testing: Blood Glucose: 17:48 Blood Glucose: 200 mg/dL; la1 Ranges: Intake: 19:45 IV: 1550ml; Total: 1550ml. cc3 19:45 IV: 500ml; Total: 2050ml. cc3 Output: 19:45 Urine: 400ml; Total: 400ml. cc3 Outcome: 18:17 Discharge ordered by . tan 18:43 Discharged to home ambulatory. hazel 18:43 Condition: stable 18:43 Discharge instructions given to patient, Instructed on discharge instructions, follow up and referral plans. medication usage, Demonstrated understanding of instructions, follow-up care, medications. 20:00 patient for potassium correction and blood pressure monitoringPatient's length of stay cc3 extended due to 20:02 Patient left the ED. cc3 Signatures: Dispatcher [employer] EDMS Joey Adorno PA PA jr8 Attema, Lee RN RN Juanis Lopez Victoria vm2 Cordel, Charlene cc3 Juan Luis Pozo [employer] em Corrections: (The following items were deleted from the chart) 20:49 20:00 Reassessment: Patient appears in no apparent distress at this time. Patient cc3 and/or family updated on plan of care and expected duration. Pain level reassessed. Patient is alert, oriented x 3, equal unlabored respirations, skin warm/dry/pink. Patient's blood pressure reading of cc3
--- NOTE | 2018-02-28 18:18 | EDPHYS ---
Physician Documentation [facility] Name: Dez Lovett Age: 87 yrs Sex: Male : 1930 Arrival Date: 02/28/2018 Time: 13:43 Bed 13 Private MD: ED Physician Lincoln Campos HPI: 02/28 16:48 This 87 yrs old Male presents to ER via EMS with complaints of Fall Injury. jr8 16:48 Details of fall: The patient fell from an upright position, while standing. Onset: The jr8 symptoms/episode began/occurred acutely, today. Associated injuries: The patient sustained injury to the head, neck injury. Severity of symptoms: At their worst the symptoms were mild, in the emergency department the symptoms are unchanged. The patient has not experienced similar symptoms in the past. The patient has not recently seen a physician. since fall noted to have tingling to bilateral hands near thumbs. Family concerned that he is in renal failure again because of rash he formed . Historical: - Allergies: 13:46 No Known Allergies; la1 - PMHx: 13:46 Diabetes - NIDDM; Gout; Hypertension; la1 - Immunization history:: Adult Immunizations up to date. - Social history:: Smoking status: Patient/guardian denies using tobacco. - Immunization history: Last tetanus immunization: - up to date. - Ebola Screening: : No symptoms or risks identified at this time. ROS: 16:48 Eyes: Negative for injury, pain, redness, and discharge, ENT: Negative for injury, jr8 pain, and discharge, Cardiovascular: Negative for chest pain, palpitations, and edema, Respiratory: Negative for shortness of breath, cough, wheezing, and pleuritic chest pain, Abdomen/GI: Negative for abdominal pain, nausea, vomiting, diarrhea, and constipation, Back: Negative for injury and pain, MS/Extremity: Negative for injury and deformity, Neuro: Negative for headache, weakness, numbness, tingling, and seizure. 16:48 Neck: Positive for pain with movement, tenderness, bony tenderness. 16:48 Skin: Positive for laceration(s), rash. Exam: 16:48 Eyes: Pupils equal round and reactive to light, extra-ocular motions intact. Lids and jr8 lashes normal. Conjunctiva and sclera are non-icteric and not injected. Cornea within normal limits. Periorbital areas with no swelling, redness, or edema. ENT: Nares patent. No nasal discharge, no septal abnormalities noted. Tympanic membranes are normal and external auditory canals are clear. Oropharynx with no redness, swelling, or masses, exudates, or evidence of obstruction, uvula midline. Mucous membranes moist. Chest/axilla: Normal chest wall appearance and motion. Nontender with no deformity. No lesions are appreciated. Cardiovascular: Regular rate and rhythm with a normal S1 and S2. No gallops, murmurs, or rubs. Normal PMI, no JVD. No pulse deficits. Respiratory: Lungs have equal breath sounds bilaterally, clear to auscultation and percussion. No rales, rhonchi or wheezes noted. No increased work of breathing, no retractions or nasal flaring. Abdomen/GI: Soft, non-tender, with normal bowel sounds. No distension or tympany. No guarding or rebound. No evidence of tenderness throughout. Back: No spinal tenderness. No costovertebral tenderness. Full range of motion. MS/ Extremity: Pulses equal, no cyanosis. Neurovascular intact. Full, normal range of motion. Neuro: Awake and alert, GCS 15, oriented to person, place, time, and situation. Cranial nerves II-XII grossly intact. Motor strength 5/5 in all extremities. Sensory grossly intact. Cerebellar exam normal. Normal gait. 16:48 Head/face: Noted is small < 1cm puncture noted to back of head. 16:48 Neck: External neck: tenderness, that is mild, of the left mid cervical area, right mid cervical area, left trapezius, lower cervical area and right trapezius, C-spine: vertebral tenderness, that is mild, appreciated at C5 and C6, Thyroid: appears normal, Trachea: is midline with no obvious abnormalities, ROM/movement: pain, that is mild, with any movement, limited range of motion, is not appreciated, Lymph nodes: no appreciated lymphadenopathy. 16:48 Skin: rash a mild rash is noted, on the forehead. Vital Signs: 13:46 BP 125 / 72; Pulse 62; Resp 16; Temp 97.8; Pulse Ox 98% on R/A; Weight 92.53 kg; Height la1 5 ft. 11 in. (180.34 cm); 14:50 BP 135 / 78; Pulse 91; Resp 16; Pulse Ox 98% on R/A; la1 16:55 BP 110 / 65; Pulse 68; Resp 18; Pulse Ox 98% on R/A; la1 17:47 BP 119 / 58; Pulse 63; Resp 18; Pulse Ox 98% on R/A; la1 18:49 BP 80 / 58; Pulse 67; Resp 18; Pulse Ox 98% on R/A; la1 19:09 BP 91 / 51; Pulse 64; Resp 16; Temp 97.9(O); Pulse Ox 100% on R/A; cc3 20:00 BP 108 / 82; Pulse 62; Resp 17 S; Pulse Ox 98% on R/A; cc3 13:46 Body Mass Index 28.45 (92.53 kg, 180.34 cm) la1 Ana Coma Score: 13:58 Eye Response: spontaneous(4). Verbal Response: oriented(5). Motor Response: obeys la1 commands(6). Total: 15. Trauma Score (Adult): 13:58 Eye Response: spontaneous(1); Verbal Response: oriented(1); Motor Response: obeys la1 commands(2); Systolic BP: > 89 mm Hg(4); Respiratory Rate: 10 to 29 per min(4); [place] Score: 15; Trauma Score: 12 14:50 Eye Response: spontaneous(1); Verbal Response: oriented(1); Motor Response: obeys la1 commands(2); Systolic BP: > 89 mm Hg(4); Respiratory Rate: 10 to 29 per min(4); [place] Score: 15; Trauma Score: 12 16:55 Eye Response: spontaneous(1); Verbal Response: oriented(1); Motor Response: obeys la1 commands(2); Systolic BP: > 89 mm Hg(4); Respiratory Rate: 10 to 29 per min(4); [place] Score: 15; Trauma Score: 12 17:47 Eye Response: spontaneous(1); Verbal Response: oriented(1); Motor Response: obeys la1 commands(2); Systolic BP: > 89 mm Hg(4); Respiratory Rate: 10 to 29 per min(4); [place] Score: 15; Trauma Score: 12 MDM: 13:55 Patient medically screened. jr8 18:13 Data reviewed: vital signs, nurses notes, lab test result(s), radiologic studies, CT jr8 scan, and as a result, I will discharge patient. Data interpreted: Pulse oximetry: on room air is 98 %. Interpretation: normal. Counseling: I had a detailed discussion with the patient and/or guardian regarding: the historical points, exam findings, and any diagnostic results supporting the discharge/admit diagnosis, lab results, radiology results, the need for outpatient follow up, a family practitioner, a neurologist, nephrology . ED course: Potassium level treated. Renal function improved but not substantially different then in past. No acute failure noted. Advised patient that he needs to f/u with his event set up specialist after the weekend. 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 Patient without weakness, numbness, or paresis. Family and patient good with this and will follow up . 02/28 15:11 Order name: CBC with Diff; Complete Time: 16:12 8 02/28 15:11 Order name: Basic Metabolic Panel; Complete Time: 16:35 8 02/28 13:56 Order name: CT Head C Spine; Complete Time: 14:43 8 02/28 16:15 Order name: Urine Dipstick--Ancillary (enter results); Complete Time: 17:09 ag 02/28 17:10 Order name: BMP; Complete Time: 18:13 jr8 02/28 13:56 Order name: Cervical Collar; Complete Time: 13:59 jr8 Administered Medications: 16:57 Drug: NS 0.9% 1000 ml Route: IV; Rate: 1000 ml; Site: right forearm; la1 18:44 Follow up: IV Status: Completed infusion la1 16:57 Drug: Albuterol 2.5 mg Route: Inhalation; la1 18:44 Follow up: Response: No adverse reaction la1 16:58 Drug: Lasix 40 mg Route: IVP; Site: right forearm; la1 18:44 Follow up: Response: No adverse reaction la1 16:58 Drug: D50W 50 ml Route: IVP; Site: right forearm; la1 18:44 Follow up: Response: No adverse reaction la1 16:58 Drug: Insulin Regular Human 5 units {Co-Signature: chari Pozo LVN).} Route: IVP; la1 Site: right forearm; 18:44 Follow up: Response: No adverse reaction la1 18:53 Drug: NS 0.9% 500 ml Route: IV; Rate: bolus; Site: right forearm; la1 19:45 Follow up: Response: No adverse reaction; IV Status: Completed infusion; IV Intake: cc3 500ml 18:54 Drug: Albuterol 2.5 mg Route: Inhalation; la1 18:54 Follow up: Response: No adverse reaction la1 18:54 Drug: Albuterol 2.5 mg Route: Inhalation; la1 Point of Care Testing: Blood Glucose: 17:48 Blood Glucose: 200 mg/dL; la1 Ranges: Critical Glucose Levels:Adult <50 mg/dl or >400 mg/dl <40 mg/dl or >180 mg/dl Disposition: 02/28/18 18:17 Discharged to Home. Impression: Contusion of unspecified part of neck, Hyperkalemia. - Condition is Stable. - Discharge Instructions: Hyperkalemia. - Prescriptions for Tramadol 50 mg Oral Tablet - take 1 tablet by ORAL route every 8 hours as needed; 12 tablet. - Medication Reconciliation Form, Thank You Letter, Antibiotic Education, Prescription Opioid Use form. - Follow up: Private Physician; When: 2 - 3 days; Reason: Recheck today's complaints, Continuance of care, Re-evaluation by your physician. - Problem is new. - Symptoms have improved. Addendum: 03/13/2018 07:35 Co-signature as Attending Physician, Lincoln Campos MD I agree with the assessment and k dr plan of care. Signatures: Dispatcher [employer] [facility] Lincoln Campos MD MD [facility] Joey Adorno PA PA jr8 Eleazar Bruno RN RN la1 Eloisa Amaya cc3 Juan Luis Pozo KILN DOOR REPAIRER em Corrections: (The following items were deleted from the chart) 02/28 14:01 13:57 Head C Spine MPR Wo Con+CT.RAD.BRZ ordered. [facility] 20:02 18:17 02/28/2018 18:17 Discharged to Home. Impression: Contusion of unspecified part of cc3 neck; Hyperkalemia. Condition is Stable. Forms are Medication Reconciliation Form, Thank You Letter, Antibiotic Education, Prescription Opioid Use. Follow up: Private Physician; When: 2 - 3 days; Reason: Recheck today's complaints, Continuance of care, Re-evaluation by your physician. Problem is new. Symptoms have improved. jr8
[2018-02-28] MEDS ORDERED: NA CHLORIDE 0.9% 500 ML ONE (19:01)
[2018-02-28 20:31] VITALS: TEMP 97.9
[2018-02-28 20:32] VITALS: BP 108/82; O2SAT 98
== END 2018-02-28 20:02 | disposition home or self-care (01) ==
LOC: ER 13:41
DX: S10.93XA Contusion of unspecified part of neck, initial encounter (principal); E87.5 Hyperkalemia; R21 Rash and other nonspecific skin eruption; W18.30XA Fall on same level, unspecified, initial encounter; Y93.9 Activity, unspecified; Y92.9 Unspecified place or not applicable; I10 Essential (primary) hypertension
CPT/HCPCS: 36415; 70450; 72125; 80048 ×2; 81003; 82962; 85025; 96361; 96374; 96375; 99285; J1940; J7030

== ENCOUNTER 2019-01-04 16:12 | Emergency (ER) | payer OTHER ==
--- NOTE | 2019-01-04 17:09 | RAD REPORT ---
EXAM DESCRIPTION: CT - Head Brain Wo Cont - 01/04/2019 4:54 pm CLINICAL HISTORY: Head injury with headaches COMPARISON: None TECHNIQUE: Computed axial tomography of the head was obtained. IV contrast was not requested. All CT scans are performed using dose optimization technique as appropriate and may include automated exposure control or mA/KV adjustment according to patient size. FINDINGS: An intracranial bleed is not seen . The ventricles are normal in caliber. No extra-axial fluid collection is noted. Cerebral atrophy is present. Prominent low-density area within the [place]. Fluid within the sinuses/ mastoids is not seen. IMPRESSION: Prominent low-density area within the [place]. Often this is related to artifact secondary to beam hardening. An acute infarction can also result in this appearance. This should be correlated clinically.
--- NOTE | 2019-01-04 17:18 | RAD REPORT ---
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 No fracture or dislocation seen Bony/calcific densities abutting the olecranon are chronic. There probably is a joint effusion. This was also present on the 2017 exam. This could indicate an oc cult fracture or be related to the osteoarthritis. If the patient continues to have symptoms to suggest an occult fracture then a followup plain film se jose daniel in 7 days would be recommended
--- NOTE | 2019-01-04 17:40 | ER ---
Nurse's Notes [facility] Name: Dez Lovett Age: 88 yrs Sex: Male : 1930 Arrival Date: 01/04/2019 Time: 16:15 Bed 25 Private MD: Mono Wheeler Diagnosis: Laceration without foreign body of scalp;Contusion of right elbow Presentation: 01/04 16:18 Presenting complaint: Patient states: I fell coming out of the shower and hit my head la1 and right elbow, denies LOC, takes baby ASA daily. Transition of care: patient was not received from another setting of care. Onset of symptoms was January 04, 2019. Risk Assessment: Do you want to hurt yourself or someone else? Patient reports no desire to harm self or others. Initial Sepsis Screen: Does the patient meet any 2 criteria? No. Patient's initial sepsis screen is negative. Does the patient have a suspected source of infection? No. Patient's initial sepsis screen is negative. Care prior to arrival: None. 16:18 Method Of Arrival: Ambulatory la1 16:18 Acuity: GOYO 3 la1 16:36 Mechanism of Injury: Fall from standing position. Trauma event details: Injury occurred ca1 in the [facility], Injury occurred: at home. Injury occurred: January 04, 2019 Injury occurred at: 11:00. Trauma Activation: Not Applicable Physician: ED Physician; Name: ; Notified At: ; Arrived At: Physician: General Surgeon; Name: ; Notified At: ; Arrived At: Physician: Radiology; Name: ; Notified At: ; Arrived At: Physician: Respiratory; Name: ; Notified At: ; Arrived At: Physician: Lab; Name: ; Notified At: ; Arrived At: Historical: - Allergies: 16:19 No Known Allergies; la1 - PMHx: 16:19 Diabetes - NIDDM; Gout; Hypertension; la1 - Immunization history:: Adult Immunizations up to date. - Social history:: Smoking status: Patient/guardian denies using tobacco. - Immunization history: Last tetanus immunization: unknown. - Ebola Screening: : No symptoms or risks identified at this time. Screenin:29 Abuse screen: Denies threats or abuse. Denies injuries from another. Nutritional ca1 screening: No deficits noted. Tuberculosis screening: No symptoms or risk factors identified. Fall Risk Fall in past 12 months (25 points). Ambulatory Aid- Crutches/Cane/Walker (15 pts). Primary Survey: 16:34 NO uncontrolled hemorrhage observed. A: The patient is alert. Airway: patent. ca1 Breathing/Chest: Respiratory pattern: regular, Respiratory effort: spontaneous, unlabored, Breath sounds: clear, bilaterally. Chest inspection: symmetrical rise and fall of the chest. Circulation: Heart tones present. Pulses: palpable bilateral radial, brachial, femoral, popliteal, posterior tibial and and dorsalis pedis arteries.. Skin color: pink, Skin temperature: warm, dry. Disability Alert. Exposure/Environment: All clothing and personal items were removed. Forensic evidence collection is not deemed to be indicated at this time. Items placed in patient belonging bag. There is no evidence of uncontrolled external bleeding. Obvious injury(ies) are noted at this time: laceration on scalp and R elbow A warming method has been applied: A warm blanket has been provided to the patient. 17:11 Reassessment Airway Airway Patent Breathing/Chest Respiratory pattern Regular ca1 Respiratory effort Spontaneous Unlabored Breath sounds Clear Chest inspection Symmetrical Circulation Heart tones Present Pulses Palpable Color Cooper Temperature Warm Dry Disability Alert. Assessment: 16:29 General: Appears in no apparent distress. comfortable, Behavior is calm, cooperative, ca1 appropriate for age. Pain: Complains of pain in scalp and right elbow Pain currently is 4 out of 10 on a pain scale. Neuro: Level of Consciousness is awake, alert, obeys commands, Oriented to person, place, time, situation, Appropriate for age. Cardiovascular: Heart tones S1 S2 present Capillary refill < 3 seconds Patient's skin is warm and dry. Respiratory: Airway is patent Respiratory effort is even, unlabored, Respiratory pattern is regular, symmetrical, Breath sounds are clear bilaterally. GI: Abdomen is round non-distended, Bowel sounds present X 4 quads. Abd is soft and non tender X 4 quads. : No deficits noted. No signs and/or symptoms were reported regarding the genitourinary system. EENT: No signs and/or symptoms were reported regarding the EENT system. Derm: Skin is intact, is fragile, is thin, Skin is pink, warm \T\ dry. Musculoskeletal: Circulation, motion, and sensation intact. Capillary refill < 3 seconds, Range of motion: intact in all extremities. Injury Description: Laceration sustained to scalp and right elbow is clean, 0.5 to 2.5 cm long, was sustained 4-6 hours ago. a small amount of bleeding noted at this time. 17:12 Reassessment: Patient appears in no apparent distress at this time. Patient and/or ca1 family updated on plan of care and expected duration. Pain level reassessed. Patient is alert, oriented x 3, equal unlabored respirations, skin warm/dry/pink. 17:50 Reassessment: Patient appears in no apparent distress at this time. Patient is alert, ca1 oriented x 3, equal unlabored respirations, skin warm/dry/pink. wounds cleaned and dressed. Kept a few minutes for any untoward reaction to tetanus shot. Vital Signs: 16:19 Pulse 77; Resp 18; Temp 98.2; Pulse Ox 98% on R/A; Weight 94.8 kg; Height 5 ft. 11 in. la1 (180.34 cm); 16:21 BP 138 / 77; la1 17:12 BP 119 / 87; Pulse 70; Resp 16 S; Pulse Ox 99% on R/A; ca1 17:54 BP 132 / 67; Pulse 71; Resp 16 S; Pulse Ox 100% on R/A; ca1 16:19 Body Mass Index 29.15 (94.80 kg, 180.34 cm) la1 Ana Coma Score: 16:34 Eye Response: spontaneous(4). Verbal Response: oriented(5). Motor Response: obeys ca1 commands(6). Total: 15. Trauma Score (Adult): 16:34 Eye Response: spontaneous(1); Verbal Response: oriented(1); Motor Response: obeys ca1 commands(2); Systolic BP: > 89 mm Hg(4); Respiratory Rate: 10 to 29 per min(4); Chaffee Score: 15; Trauma Score: 12 ED Course: 16:15 Patient arrived in ED. mr 16:15 Mono Wheeler MD is Private Physician. mr 16:19 Triage completed. la1 16:20 Arm band placed on left wrist. la1 16:22 Aracelis Villarreal, YOUNG is Primary Nurse. ca1 16:23 Joey Adorno PA is PHCP. jr8 16:23 Sumaya Dueñas MD is Attending Physician. jr8 16:29 Patient has correct armband on for positive identification. Bed in low position. Call ca1 light in reach. Side rails up X 1. Pulse ox on. NIBP on. Warm blanket given. 16:34 Patient maintains SpO2 saturation greater than 95% on room air. Wound care: to ca1 laceration located on right elbow was cleaned with Betadine, dressed with 4X4s, Patient tolerated well. Thermoregulation: warm blanket given to patient. 16:54 CT completed. Patient tolerated procedure well. Patient moved back from CT. 2 16:55 CT Head Brain wo Cont In Process Unspecified. EDMS 16:59 XRAY Elbow RIGHT 3 view In Process Unspecified. EDMS 17:38 Mono Wheeler MD is Referral Physician. jr8 17:50 Assist provider with laceration repair on back of head that was 2.5 cm. or less using ca1 flaquita. Set up tray. Performed by Joey ESPINOZA Patient tolerated well. 17:56 Patient did not have IV access during this emergency room visit. 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 Exp: ca1 07/31/2020. Lot #: [id number]. } Route: IM; Site: right deltoid; 18:00 Follow up: Response: No adverse reaction ca1 Output: 17:56 Urine: 0ml; Total: 0ml. ca1 Outcome: 17:39 Discharge ordered by . jr8 17:56 Patient's length of stay was not longer than 2 hours. ca1 18:05 Discharged to home via wheelchair, with family. ca1 18:05 Condition: stable 18:05 Discharge instructions given to patient, family, Instructed on discharge instructions, follow up and referral plans. wound care, Demonstrated understanding of instructions, follow-up care, wound care. 18:13 Patient left the ED. ca1 Signatures: Dispatcher [employer] [facility] Miranda Botello Joey Adorno PA PA jr8 Eleazar Bruno RN RN Rosamaria Rodriguez [facility] Aracelis Villarreal RN RN ca1 Corrections: (The following items were deleted from the chart) 16:42 16:37 Immunization history Last tetanus immunization: < 5 years ago ca1 ca1 17:56 16:29 No provider procedures requiring assistance completed. ca1 ca1
--- NOTE | 2019-01-04 17:40 | EDPHYS ---
Physician Documentation [facility] Name: Dez Lovett Age: 88 yrs Sex: Male : 1930 Arrival Date: 01/04/2019 Time: 16:15 Bed 25 Private MD: Mono Wheeler ED Physician Sumaya Dueñas HPI: 01/04 17:27 This 88 yrs old Male presents to ER via Ambulatory with complaints of Fall jr8 Injury. 17:27 Details of fall: The patient fell from an upright position, while standing. Onset: The jr8 symptoms/episode began/occurred acutely, today. Associated injuries: The patient sustained injury to the head, right arm. Severity of symptoms: At their worst the symptoms were mild, in the emergency department the symptoms are unchanged. The patient has not experienced similar symptoms in the past. The patient has not recently seen a physician. Stated that he slipped coming out of shower hitting back of head and right elbow. Negative for LOC. Denies any other pain. Laceration noted to back of head. On daily aspirin . Historical: - Allergies: 16:19 No Known Allergies; la1 - PMHx: 16:19 Diabetes - NIDDM; Gout; Hypertension; la1 - Immunization history:: Adult Immunizations up to date. - Social history:: Smoking status: Patient/guardian denies using tobacco. - Immunization history: Last tetanus immunization: unknown. - Ebola Screening: : No symptoms or risks identified at this time. ROS: 17:27 Constitutional: Negative for fever, chills, and weight loss. jr8 17:27 MS/extremity: Positive for ecchymosis, pain, tenderness. 17:27 Skin: Positive for laceration(s). 17:27 All other systems are negative. Exam: 17:27 Eyes: Pupils equal round and reactive to light, extra-ocular motions intact. Lids and jr8 lashes normal. Conjunctiva and sclera are non-icteric and not injected. Cornea within normal limits. Periorbital areas with no swelling, redness, or edema. ENT: Nares patent. No nasal discharge, no septal abnormalities noted. Tympanic membranes are normal and external auditory canals are clear. Oropharynx with no redness, swelling, or masses, exudates, or evidence of obstruction, uvula midline. Mucous membranes moist. Neck: Trachea midline, no thyromegaly or masses palpated, and no cervical lymphadenopathy. Supple, full range of motion without nuchal rigidity, or vertebral point tenderness. No Meningismus. Chest/axilla: Normal chest wall appearance and motion. Nontender with no deformity. No lesions are appreciated. Cardiovascular: Regular rate and rhythm with a normal S1 and S2. No gallops, murmurs, or rubs. Normal PMI, no JVD. No pulse deficits. Respiratory: Lungs have equal breath sounds bilaterally, clear to auscultation and percussion. No rales, rhonchi or wheezes noted. No increased work of breathing, no retractions or nasal flaring. Abdomen/GI: Soft, non-tender, with normal bowel sounds. No distension or tympany. No guarding or rebound. No evidence of tenderness throughout. Back: No spinal tenderness. No costovertebral tenderness. Full range of motion. MS/ Extremity: Pulses equal, no cyanosis. Neurovascular intact. Full, normal range of motion. Mild elbow pain right side without decreased ROM or obvious deformity Neuro: Awake and alert, GCS 15, oriented to person, place, time, and situation. Cranial nerves II-XII grossly intact. Motor strength 5/5 in all extremities. Sensory grossly intact. Cerebellar exam normal. Normal gait. 17:27 Head/face: Noted is a laceration(s), that is deep, that is jagged, 2.5 cm(s), of the left side of the back of head. 17:27 Skin: small skin avulsion noted to posterior right elbow. Vital Signs: 16:19 Pulse 77; Resp 18; Temp 98.2; Pulse Ox 98% on R/A; Weight 94.8 kg; Height 5 ft. 11 in. la1 (180.34 cm); 16:21 BP 138 / 77; la1 17:12 BP 119 / 87; Pulse 70; Resp 16 S; Pulse Ox 99% on R/A; ca1 17:54 BP 132 / 67; Pulse 71; Resp 16 S; Pulse Ox 100% on R/A; ca1 16:19 Body Mass Index 29.15 (94.80 kg, 180.34 cm) la1 Ana Coma Score: 16:34 Eye Response: spontaneous(4). Verbal Response: oriented(5). Motor Response: obeys ca1 commands(6). Total: 15. Trauma Score (Adult): 16:34 Eye Response: spontaneous(1); Verbal Response: oriented(1); Motor Response: obeys ca1 commands(2); Systolic BP: > 89 mm Hg(4); Respiratory Rate: 10 to 29 per min(4); Hewitt Score: 15; Trauma Score: 12 Laceration: 17:37 Wound Repair of 2.5cm ( 1.0in ) subcutaneous laceration to left side of the back of jr8 head. Irregularly shaped.. Distal neuro/vascular/tendon intact. Wound prep: Extensive cleansing with hibiclenz, Wound irrigation with saline, Wound explored extensively. Skin closed with 2 flaquita [place] using staple gun. Patient tolerated well. MDM: 16:24 Patient medically screened. [facility] 17:37 Data reviewed: vital signs, nurses notes, radiologic studies, CT scan, plain films. [facility] Data interpreted: Pulse oximetry: on room air is 99 %. Interpretation: normal. Counseling: I had a detailed discussion with the patient and/or guardian regarding: the historical points, exam findings, and any diagnostic results supporting the discharge/admit diagnosis, radiology results, the need for outpatient follow up, a family practitioner, to return to the emergency department if symptoms worsen or persist or if there are any questions or concerns that arise at home. 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 Exp: ca1 07/31/2020. Lot #: [id number]. } Route: IM; Site: right deltoid; 18:00 Follow up: Response: No adverse reaction ca1 Disposition: 01/05 16:49 Co-signature as Attending Physician, Sumaya Dueñas MD. ma2 Disposition: 01/04/19 17:39 Discharged to Home. Impression: Laceration without foreign body of scalp, Contusion of right elbow. - Condition is Stable. - Discharge Instructions: Laceration Care, Adult, Elbow Contusion. - Medication Reconciliation Form, Thank You Letter, Antibiotic Education, Prescription Opioid Use form. - Follow up: Mono Wheeler MD; When: 1 week; Reason: Wound Recheck, Recheck today's complaints, Continuance of care, Staple/Suture removal, Re-evaluation by your physician. - Problem is new. - Symptoms have improved. Signatures: Dispatcher [employer] EDMS Joey Adorno PA PA jr8 Eleazar Bruno RN RN la1 Sumaya Dueñas MD MD ma2 Aracelis Villarreal RN RN ca1 Corrections: (The following items were deleted from the chart) 01/04 16:42 16:37 Immunization history Last tetanus immunization: < 5 years ago ca1 ca1 18:13 17:39 01/04/2019 17:39 Discharged to Home. Impression: Laceration without foreign body ca1 of scalp; Contusion of right elbow. Condition is Stable. Forms are Medication Reconciliation Form, Thank You Letter, Antibiotic Education, Prescription Opioid Use. Follow up: Mono Wheeler; When: 1 week; Reason: Wound Recheck, Recheck today's complaints, Continuance of care, Staple/Suture removal, Re-evaluation by your physician. Problem is new. Symptoms have improved. jr8
[2019-01-04] MEDS ORDERED: TETANUS & DIPHTHERIA TOX,ADULT 0.5 ML VIAL ONE (17:44)
[2019-01-04 18:34] VITALS: TEMP 98.2
[2019-01-04 18:37] VITALS: BP 132/67; O2SAT 100
--- OUTSIDE RECORDS SUMMARY | 2019-01-05 07:15 | XMS REPORT ---
:1930 Author Organization [facility] Address [address] [place] [address] Care Team Providers Name Role Phone ELENA [...] (BEAKER) (test 107 mg/dL 70-110 TESTED AT [facility] [address] [facility] kvag=3380) [facility] [address] [id number] 06:17:00 Test Item Value Reference Range Comments PHOSPHORUS (BEAKER) (test ecxw=490) 3.2 mg/dL 2.3-4.7 [id number] 06:17:00 Test Item Value Reference Range Comments MAGNESIUM (BEAKER) (test xiov=558) 1.7 mg/dL 1.6-2.6 COMPREHENSIVE METABOLIC [id number] 06:17:00 Test Item Value Reference Range Comments TOTAL PROTEIN (BEAKER) 6.2 gm/dL 6.0-8.3 (test ftyn=538) ALBUMIN (BEAKER) (test 2.9 g/dL 3.5-5.0 sunc=2622) ALKALINE PHOSPHATASE 116 U/L 40-150 (BEAKER) (test qfvi=414) BILIRUBIN TOTAL (BEAKER) 1.9 mg/dL 0.2-1.2 (test vfgt=889) SODIUM (BEAKER) (test 137 meq/L 136-145 ypbq=539) POTASSIUM (BEAKER) (test 3.9 meq/L 3.5-5.1 ohmc=910) CHLORIDE (BEAKER) (test 103 meq/L 98-107 xhjv=850) CO2 (BEAKER) (test 24 meq/L 22-29 sqrx=595) BLOOD UREA NITROGEN 22 mg/dL 7-21 (BEAKER) (test diti=873) CREATININE (BEAKER) (test 1.38 mg/dL 0.57-1.25 lhvf=788) GLUCOSE RANDOM (BEAKER) 113 mg/dL 70-105 (test uaft=409) CALCIUM (BEAKER) (test 9.3 mg/dL 8.4-10.2 vhod=034) AST (SGOT) (BEAKER) (test 37 U/L 5-34 rzds=097) ALT (SGPT) (BEAKER) (test 34 U/L 6-55 dujc=877) EGFR (BEAKER) (test 49 mL/min/1.73 sq m ESTIMATED GFR IS NOT vjyd=5370) ACCURATE CREATININE CLEARANCE IN PREDICTING GLOMERULAR FILTRATION RATE. ESTIMATED GFR IS NOT APPLICABLE FOR DIALYSIS PATIENTS. POCT-GLUCOSE [id number] 06:03:00 Test Item Value Reference Range Comments POC-GLUCOSE METER (BEAKER) 127 mg/dL 70-110 TESTED AT [address] (test zmqp=8354) [facility] [address] CBC W/PLT COUNT & AUTO [id number] 05:43:00 Test Item Value Reference Range Comments WHITE BLOOD CELL COUNT (BEAKER) (test ywld=304) 3.9 K/ L 3.5-10.5 RED BLOOD CELL COUNT (BEAKER) (test fbtr=246) 3.32 M/ L 4.63-6.08 HEMOGLOBIN (BEAKER) (test ghhg=731) 10.5 GM/DL 13.7-17.5 HEMATOCRIT (BEAKER) (test dnud=968) 32.9 % 40.1-51.0 MEAN CORPUSCULAR VOLUME (BEAKER) (test wkwp=676) 99.1 fL 79.0-92.2 MEAN CORPUSCULAR HEMOGLOBIN (BEAKER) (test 31.6 pg 25.7-32.2 tcma=787) MEAN CORPUSCULAR HEMOGLOBIN CONC (BEAKER) (test 31.9 GM/DL 32.3-36.5 dzyz=445) RED CELL DISTRIBUTION WIDTH (BEAKER) (test 15.3 % 11.6-14.4 iman=549) PLATELET COUNT (BEAKER) (test sojr=348) 138 K/CU MM 150-450 MEAN PLATELET VOLUME (BEAKER) (test hjyl=090) 11.9 fL 9.4-12.4 NUCLEATED RED BLOOD CELLS (BEAKER) (test 0 /100 WBC 0-0 vbpw=619) NEUTROPHILS RELATIVE PERCENT (BEAKER) (test 58 % eyag=162) LYMPHOCYTES RELATIVE PERCENT (BEAKER) (test 27 % gvff=693) MONOCYTES RELATIVE PERCENT (BEAKER) (test 11 % lsqn=088) EOSINOPHILS RELATIVE PERCENT (BEAKER) (test 3 % dknv=012) BASOPHILS RELATIVE PERCENT (BEAKER) (test 1 % ynsj=440) NEUTROPHILS ABSOLUTE COUNT (BEAKER) (test 2.26 K/ L 1.78-5.38 elca=375) LYMPHOCYTES ABSOLUTE COUNT (BEAKER) (test 1.06 K/ L 1.32-3.57 qezh=675) MONOCYTES ABSOLUTE COUNT (BEAKER) (test 0.43 K/ L 0.30-0.82 aqfp=167) EOSINOPHILS ABSOLUTE COUNT (BEAKER) (test 0.13 K/ L 0.04-0.54 itiz=012) BASOPHILS ABSOLUTE COUNT (BEAKER) (test 0.02 K/ L 0.01-0.08 lmha=421) IMMATURE GRANULOCYTES-RELATIVE PERCENT (BEAKER) 0 % 0-1 (test kyjm=0086) POCT-GLUCOSE [id number] 00:02:00 Test Item Value Reference Range Comments POC-GLUCOSE METER (BEAKER) 275 mg/dL 70-110 TESTED AT [address] (test cnhx=3247) [facility] [address] [place], [id number] 19:53:00INTRAOP IMAGINGReason for exam:->pancreatic strictureFINAL REPORT ERCP 6 views 10/21/2017 7:52 PM CLINICAL HISTORY: Instrument localization COMPARISON: None available IMPRESSION : Please correlate imaging report findings with the procedure note prepared by Dr. Lundberg, as an intra-procedure imaging consultation was not requested. Reported fluoroscopy time: 96.4 seconds. Signed: Viktor Beckford Verified Date/Time: 10/21/2017 19:53:14 Reading Location: [facility] Radiology Reading Room Electronically signed by: VIKTOR BECKFORD M.D. on 07:53 PMPOCT-GLUCOSE [id number] 19:21:00 Test Item Value Reference Range Comments POC-GLUCOSE METER (BEAKER) 98 mg/dL 70-110 TESTED AT [address] (test hnta=8491) [facility] [address] COMPREHENSIVE METABOLIC [id number] 12:57:00 Test Item Value Reference Range Comments TOTAL PROTEIN (BEAKER) 6.5 gm/dL 6.0-8.3 Specimen slightly (test hgme=436) hemolyzed ALBUMIN (BEAKER) (test 3.0 g/dL 3.5-5.0 Specimen slightly znzp=9364) hemolyzed ALKALINE PHOSPHATASE 124 U/L 40-150 (BEAKER) (test pknn=481) BILIRUBIN TOTAL (BEAKER) 2.3 mg/dL 0.2-1.2 Specimen slightly (test svma=793) hemolyzed SODIUM (BEAKER) (test 137 meq/L 136-145 xefa=375) POTASSIUM (BEAKER) (test 4.8 meq/L 3.5-5.1 Specimen slightly zmyg=285) hemolyzed CHLORIDE (BEAKER) (test 104 meq/L 98-107 owxu=324) CO2 (BEAKER) (test 25 meq/L 22-29 ocvk=673) BLOOD UREA NITROGEN 19 mg/dL 7-21 (BEAKER) (test vpgs=785) CREATININE (BEAKER) (test 1.31 mg/dL 0.57-1.25 Specimen slightly dwwt=288) hemolyzed GLUCOSE RANDOM (BEAKER) 109 mg/dL 70-105 (test pprr=412) CALCIUM (BEAKER) (test 9.5 mg/dL 8.4-10.2 eizs=098) AST (SGOT) (BEAKER) (test 42 U/L 5-34 Specimen slightly ypev=827) hemolyzed ALT (SGPT) (BEAKER) (test 40 U/L 6-55 Specimen slightly oxib=250) hemolyzed EGFR (BEAKER) (test 52 mL/min/1.73 sq m ESTIMATED GFR IS NOT qxnr=6417) ACCURATE CREATININE CLEARANCE IN PREDICTING GLOMERULAR FILTRATION RATE. ESTIMATED GFR IS NOT APPLICABLE FOR DIALYSIS PATIENTS. POCT-GLUCOSE [id number] 11:41:00 Test Item Value Reference Range Comments POC-GLUCOSE METER (BEAKER) 136 mg/dL 70-110 TESTED AT [address] (test oofy=2356) [facility] [address] POCT-GLUCOSE [id number] 08:14:00 Test Item Value Reference Range Comments POC-GLUCOSE METER (BEAKER) 151 mg/dL 70-110 TESTED AT [place] [id number] [facility] (test cycz=6019) [facility] [address] CBC W/PLT COUNT & AUTO [id number] 06:28:00 Test Item Value Reference Range Comments WHITE BLOOD CELL COUNT (BEAKER) (test drso=626) 4.8 K/ L 3.5-10.5 RED BLOOD CELL COUNT (BEAKER) (test qgsy=474) 3.51 M/ L 4.63-6.08 HEMOGLOBIN (BEAKER) (test ngvy=718) 10.9 GM/DL 13.7-17.5 HEMATOCRIT (BEAKER) (test glgm=706) 34.7 % 40.1-51.0 MEAN CORPUSCULAR VOLUME (BEAKER) (test pspf=268) 98.9 fL 79.0-92.2 MEAN CORPUSCULAR HEMOGLOBIN (BEAKER) (test 31.1 pg 25.7-32.2 hqmy=561) MEAN CORPUSCULAR HEMOGLOBIN CONC (BEAKER) (test 31.4 GM/DL 32.3-36.5 sfkq=508) RED CELL DISTRIBUTION WIDTH (BEAKER) (test 15.4 % 11.6-14.4 rkct=760) PLATELET COUNT (BEAKER) (test wsxo=488) 156 K/CU MM 150-450 MEAN PLATELET VOLUME (BEAKER) (test ichb=515) 11.4 fL 9.4-12.4 NUCLEATED RED BLOOD CELLS (BEAKER) (test 0 /100 WBC 0-0 nwin=576) NEUTROPHILS RELATIVE PERCENT (BEAKER) (test 56 % evhb=499) LYMPHOCYTES RELATIVE PERCENT (BEAKER) (test 28 % ohwu=605) MONOCYTES RELATIVE PERCENT (BEAKER) (test 11 % khnl=159) EOSINOPHILS RELATIVE PERCENT (BEAKER) (test 4 % qpzr=389) BASOPHILS RELATIVE PERCENT (BEAKER) (test 0 % artx=106) NEUTROPHILS ABSOLUTE COUNT (BEAKER) (test 2.68 K/ L 1.78-5.38 dgra=584) LYMPHOCYTES ABSOLUTE COUNT (BEAKER) (test 1.37 K/ L 1.32-3.57 smaq=669) MONOCYTES ABSOLUTE COUNT (BEAKER) (test 0.53 K/ L 0.30-0.82 edfu=418) EOSINOPHILS ABSOLUTE COUNT (BEAKER) (test 0.19 K/ L 0.04-0.54 slyt=988) BASOPHILS ABSOLUTE COUNT (BEAKER) (test 0.02 K/ L 0.01-0.08 qkbp=425) IMMATURE GRANULOCYTES-RELATIVE PERCENT (BEAKER) 1 % 0-1 (test ippe=3751) POCT-GLUCOSE [id number] 23:05:00 Test Item Value Reference Range Comments POC-GLUCOSE METER (BEAKER) 186 mg/dL 70-110 TESTED AT [address] (test mtxx=1478) [place] [id number] POCT-GLUCOSE [id number] 16:59:00 Test Item Value Reference Range Comments POC-GLUCOSE METER (BEAKER) 180 mg/dL 70-110 TESTED AT [address] (test ykmi=4053) [place] [address] POCT-GLUCOSE [id number] 12:05:00 Test Item Value Reference Range Comments POC-GLUCOSE METER (BEAKER) 207 mg/dL 70-110 TESTED AT [address] (test xyyy=3294) [place] [address] POCT-GLUCOSE [id number] 08:01:00 Test Item Value Reference Range Comments POC-GLUCOSE METER (BEAKER) 90 mg/dL 70-110 TESTED AT [address] (test reov=2519) [place] [address] [id number] 05:52:00 Test Item Value Reference Range Comments MAGNESIUM (BEAKER) (test 1.9 mg/dL 1.6-2.6 Specimen slightly hemolyzed bpjw=621) [id number] 05:52:00 Test Item Value Reference Range Comments PHOSPHORUS (BEAKER) (test 2.3 mg/dL 2.3-4.7 Specimen slightly hemolyzed wpes=522) BASIC METABOLIC [id number] 05:52:00 Test Item Value Reference Range Comments SODIUM (BEAKER) (test 139 meq/L 136-145 gzdy=750) POTASSIUM (BEAKER) (test 4.3 meq/L 3.5-5.1 Specimen slightly ohfh=001) hemolyzed CHLORIDE (BEAKER) (test 111 meq/L 98-107 gusb=812) CO2 (BEAKER) (test 20 meq/L 22-29 ixin=088) BLOOD UREA NITROGEN 21 mg/dL 7-21 (BEAKER) (test sdsw=646) CREATININE (BEAKER) (test 1.24 mg/dL 0.57-1.25 Specimen slightly jcmp=412) hemolyzed GLUCOSE RANDOM (BEAKER) 87 mg/dL 70-105 (test ectp=812) CALCIUM (BEAKER) (test 9.1 mg/dL 8.4-10.2 catc=382) EGFR (BEAKER) (test 55 mL/min/1.73 sq m ESTIMATED GFR IS NOT gkan=7211) ACCURATE CREATININE CLEARANCE IN PREDICTING GLOMERULAR FILTRATION RATE. ESTIMATED GFR IS NOT APPLICABLE FOR DIALYSIS PATIENTS. HEPATIC FUNCTION [id number] 05:52:00 Test Item Value Reference Range Comments TOTAL PROTEIN (BEAKER) (test 5.8 gm/dL 6.0-8.3 Specimen slightly hemolyzed kipa=046) ALBUMIN (BEAKER) (test 2.8 g/dL 3.5-5.0 Specimen slightly hemolyzed uwkd=0006) BILIRUBIN TOTAL (BEAKER) (test 2.3 mg/dL 0.2-1.2 Specimen slightly hemolyzed rytz=208) BILIRUBIN DIRECT (BEAKER) (test 1.5 mg/dL 0.1-0.5 Specimen slightly hemolyzed xgza=252) ALKALINE PHOSPHATASE (BEAKER) 121 U/L 40-150 (test jlvl=793) AST (SGOT) (BEAKER) (test 43 U/L 5-34 Specimen slightly hemolyzed wgnt=540) ALT (SGPT) (BEAKER) (test 42 U/L 6-55 Specimen slightly hemolyzed qcqu=632) B-TYPE NATRIURETIC FACTOR (BNP)2017-10-20 05:41:00 Test Item Value Reference Range Comments B-TYPE NATRIURETIC PEPTIDE (BEAKER) (test 319 pg/mL 0-100 emyr=996) PROTHROMBIN [id number] 05:23:00 Test Item Value Reference Range Comments PROTIME (BEAKER) (test brox=696) 14.3 seconds 11.7-14.7 INR (BEAKER) (test uzeg=889) 1.1 <=5.9 RECOMMENDED COUMADIN/WARFARIN INR THERAPY RANGESSTANDARD DOSE: 2.0 - 3.0 Includes: PROPHYLAXIS forvenous thrombosis, systemic embolization; TREATMENT for venous thrombosis and/or pulmonary embolus.HIGH RISK: Target INR is 2.5-3.5 for patients with mechanical heart valves.CBC W/PLT COUNT & AUTO [id number] 05:10:00 Test Item Value Reference Range Comments WHITE BLOOD CELL COUNT (BEAKER) (test ihat=723) 4.0 K/ L 3.5-10.5 RED BLOOD CELL COUNT (BEAKER) (test cufh=918) 3.39 M/ L 4.63-6.08 HEMOGLOBIN (BEAKER) (test tbmv=482) 10.6 GM/DL 13.7-17.5 HEMATOCRIT (BEAKER) (test irik=204) 34.0 % 40.1-51.0 MEAN CORPUSCULAR VOLUME (BEAKER) (test hdym=699) 100.3 fL 79.0-92.2 MEAN CORPUSCULAR HEMOGLOBIN (BEAKER) (test 31.3 pg 25.7-32.2 voam=320) MEAN CORPUSCULAR HEMOGLOBIN CONC (BEAKER) (test 31.2 GM/DL 32.3-36.5 ekpt=279) RED CELL DISTRIBUTION WIDTH (BEAKER) (test 15.7 % 11.6-14.4 oqdr=954) PLATELET COUNT (BEAKER) (test ksbl=128) 157 K/CU MM 150-450 MEAN PLATELET VOLUME (BEAKER) (test rsmy=144) 11.7 fL 9.4-12.4 NUCLEATED RED BLOOD CELLS (BEAKER) (test 0 /100 WBC 0-0 xxrf=409) NEUTROPHILS RELATIVE PERCENT (BEAKER) (test 56 % izja=597) LYMPHOCYTES RELATIVE PERCENT (BEAKER) (test 30 % vyeh=699) MONOCYTES RELATIVE PERCENT (BEAKER) (test 8 % jutz=724) EOSINOPHILS RELATIVE PERCENT (BEAKER) (test 5 % adqn=998) BASOPHILS RELATIVE PERCENT (BEAKER) (test 1 % frvj=676) NEUTROPHILS ABSOLUTE COUNT (BEAKER) (test 2.27 K/ L 1.78-5.38 iftu=021) LYMPHOCYTES ABSOLUTE COUNT (BEAKER) (test 1.19 K/ L 1.32-3.57 gdna=577) MONOCYTES ABSOLUTE COUNT (BEAKER) (test 0.34 K/ L 0.30-0.82 kkzi=610) EOSINOPHILS ABSOLUTE COUNT (BEAKER) (test 0.20 K/ L 0.04-0.54 kwkx=861) BASOPHILS ABSOLUTE COUNT (BEAKER) (test 0.02 K/ L 0.01-0.08 ghca=443) IMMATURE GRANULOCYTES-RELATIVE PERCENT (BEAKER) 1 % 0-1 (test cxjj=2749) POCT-GLUCOSE [id number] 22:21:00 Test Item Value Reference Range Comments POC-GLUCOSE METER (BEAKER) 259 mg/dL 70-110 TESTED AT [address] (test awtv=0312) [place] [address] POCT-GLUCOSE [id number] 17:06:00 Test Item Value Reference Range Comments POC-GLUCOSE METER (BEAKER) 89 mg/dL 70-110 TESTED AT [address] (test tbbp=8445) [place] [address] [place], BAR WELDER IN OR/30 MINUTE [id number] 11:29:00Reason for exam:-> ERCPFINAL REPORT Fluoroscopic images were acquired for procedural assistance. Fluoroscopy time 3.3 minutes. Fluoroscopic images 3. Fluoroscopic assistance was used during ERCP. Because images were not submitted for interpretation, see separate report by the referring physician for clinical details and imaging interpretation. Signed: Trinity Joshi Verified Date/Time: 10/19/2017 11:29:01 Reading Location: [address] Consult Reading Room Electronically signed by:TRINITY JOSHI M.D. on 2017 11:29 AMPOCT-GLUCOSE [id number] 11:15:00 Test Item Value Reference Range Comments POC-GLUCOSE METER (BEAKER) 117 mg/dL 70-110 TESTED AT [address] (test xvem=3205) [place] [id number] VITAMIN B12 AND [id number] 08:21:00 Test Item Value Reference Range Comments VITAMIN B12 (BEAKER) (test etqi=980) 433 pg/mL 213-816 FOLATE (BEAKER) (test zxgx=087) 11.5 ng/mL >=7.0 [id number] 07:37:00 Test Item Value Reference Range Comments PHOSPHORUS (BEAKER) (test uawn=398) 1.6 mg/dL 2.3-4.7 [id number] 07:37:00 Test Item Value Reference Range Comments MAGNESIUM (BEAKER) (test tpcf=286) 1.9 mg/dL 1.6-2.6 BASIC METABOLIC [id number] 07:37:00 Test Item Value Reference Range Comments SODIUM (BEAKER) (test 138 meq/L 136-145 qdxa=232) POTASSIUM (BEAKER) (test 4.1 meq/L 3.5-5.1 sofe=248) CHLORIDE (BEAKER) (test 109 meq/L 98-107 apvt=615) CO2 (BEAKER) (test 22 meq/L 22-29 fecp=050) BLOOD UREA NITROGEN 23 mg/dL 7-21 (BEAKER) (test qfua=861) CREATININE (BEAKER) (test 1.38 mg/dL 0.57-1.25 wyvy=104) GLUCOSE RANDOM (BEAKER) 53 mg/dL 70-105 (test gnpl=873) CALCIUM (BEAKER) (test 9.0 mg/dL 8.4-10.2 ixbx=112) EGFR (BEAKER) (test 49 mL/min/1.73 sq m ESTIMATED GFR IS NOT kvph=7665) ACCURATE CREATININE CLEARANCE IN PREDICTING GLOMERULAR FILTRATION RATE. ESTIMATED GFR IS NOT APPLICABLE FOR DIALYSIS PATIENTS. Specimen slightly ictericHEPATIC FUNCTION [id number] 07:37:00 Test Item Value Reference Range Comments TOTAL PROTEIN (BEAKER) (test orsu=582) 5.6 gm/dL 6.0-8.3 ALBUMIN (BEAKER) (test qksx=6051) 2.7 g/dL 3.5-5.0 BILIRUBIN TOTAL (BEAKER) (test bvtm=552) 2.9 mg/dL 0.2-1.2 BILIRUBIN DIRECT (BEAKER) (test sbaf=100) 2.0 mg/dL 0.1-0.5 ALKALINE PHOSPHATASE (BEAKER) (test exlp=981) 120 U/L 40-150 AST (SGOT) (BEAKER) (test fpkq=225) 39 U/L 5-34 ALT (SGPT) (BEAKER) (test onlr=626) 44 U/L 6-55 Specimen slightly ictericPROTHROMBIN [id number] 07:07:00 Test Item Value Reference Range Comments PROTIME (BEAKER) (test pxbx=912) 14.7 seconds 11.7-14.7 INR (BEAKER) (test yjud=834) 1.2 <=5.9 RECOMMENDED COUMADIN/WARFARIN INR THERAPY RANGESSTANDARD DOSE: 2.0 - 3.0 Includes: PROPHYLAXIS forvenous thrombosis, systemic embolization; TREATMENT for venous thrombosis and/or pulmonary embolus.HIGH RISK: Target INR is 2.5-3.5 for patients with mechanical heart valves.CBC W/PLT COUNT & AUTO [id number] 06:58:00 Test Item Value Reference Range Comments WHITE BLOOD CELL COUNT (BEAKER) (test uili=968) 4.4 K/ L 3.5-10.5 RED BLOOD CELL COUNT (BEAKER) (test nlyh=225) 3.28 M/ L 4.63-6.08 HEMOGLOBIN (BEAKER) (test hyoq=125) 10.3 GM/DL 13.7-17.5 HEMATOCRIT (BEAKER) (test xbsl=651) 32.9 % 40.1-51.0 MEAN CORPUSCULAR VOLUME (BEAKER) (test wryb=250) 100.3 fL 79.0-92.2 MEAN CORPUSCULAR HEMOGLOBIN (BEAKER) (test 31.4 pg 25.7-32.2 wxoy=777) MEAN CORPUSCULAR HEMOGLOBIN CONC (BEAKER) (test 31.3 GM/DL 32.3-36.5 vfpe=958) RED CELL DISTRIBUTION WIDTH (BEAKER) (test 15.9 % 11.6-14.4 plks=547) PLATELET COUNT (BEAKER) (test ejib=592) 152 K/CU MM 150-450 MEAN PLATELET VOLUME (BEAKER) (test xyfx=143) 11.8 fL 9.4-12.4 NUCLEATED RED BLOOD CELLS (BEAKER) (test 0 /100 WBC 0-0 ctqf=213) NEUTROPHILS RELATIVE PERCENT (BEAKER) (test 65 % bkxk=177) LYMPHOCYTES RELATIVE PERCENT (BEAKER) (test 19 % fduw=896) MONOCYTES RELATIVE PERCENT (BEAKER) (test 7 % khdp=314) EOSINOPHILS RELATIVE PERCENT (BEAKER) (test 8 % bqru=055) BASOPHILS RELATIVE PERCENT (BEAKER) (test 1 % bsio=211) NEUTROPHILS ABSOLUTE COUNT (BEAKER) (test 2.86 K/ L 1.78-5.38 uuil=502) LYMPHOCYTES ABSOLUTE COUNT (BEAKER) (test 0.83 K/ L 1.32-3.57 fhcg=841) MONOCYTES ABSOLUTE COUNT (BEAKER) (test 0.32 K/ L 0.30-0.82 owdr=737) EOSINOPHILS ABSOLUTE COUNT (BEAKER) (test 0.33 K/ L 0.04-0.54 wodw=161) BASOPHILS ABSOLUTE COUNT (BEAKER) (test 0.02 K/ L 0.01-0.08 rwyk=189) IMMATURE GRANULOCYTES-RELATIVE PERCENT (BEAKER) 1 % 0-1 (test ngun=0717) POCT-GLUCOSE [id number] 06:01:00 Test Item Value Reference Range Comments POC-GLUCOSE METER (BEAKER) 131 mg/dL 70-110 TESTED AT [address] (test jjpr=2032) [place] [address] POCT-GLUCOSE [id number] 05:39:00 Test Item Value Reference Range Comments POC-GLUCOSE METER (BEAKER) 58 mg/dL 70-110 Notified YOUNG CLIFFORD/TESTED AT [facility] (test jocu=9803) [address] [place] [address] POCT-GLUCOSE [id number] 23:47:00 Test Item Value Reference Range Comments POC-GLUCOSE METER (BEAKER) 93 mg/dL 70-110 TESTED AT [address] (test klku=6520) [place] [address] RAD, CHEST, 1 VIEW, NON [id number] 21:34:00Reason for exam:->coughShould this be performed at [...] MDReport Verified Date/Time: 10/18/2017 21:34:29 Reading Location: [facility] [id number] Consult Reading Room POCT-GLUCOSE [id number] 18:43:00 Test Item Value Reference Range Comments POC-GLUCOSE METER (BEAKER) 144 mg/dL 70-110 TESTED AT [address] (test ttcq=9033) [place] [id number] POCT-GLUCOSE [id number] 17:36:00 Test Item Value Reference Range Comments POC-GLUCOSE METER (BEAKER) 51 mg/dL 70-110 Notified YOUNG CLIFFORD/TESTED AT [facility] (test rmin=0685) [address] [place] [address] HEMOGLOBIN [id number] 13:54:00 Test Item Value Reference Range Comments HEMOGLOBIN A1C (BEAKER) (test exxj=517) 6.4 % 4.3-6.1 POCT-GLUCOSE [id number] 12:24:00 Test Item Value Reference Range Comments POC-GLUCOSE METER (BEAKER) 96 mg/dL 70-110 TESTED AT [address] (test ubzc=5055) [place] [id number] POCT-GLUCOSE [id number] 06:32:00 Test Item Value Reference Range Comments POC-GLUCOSE METER (BEAKER) 105 mg/dL 70-110 TESTED AT [address] (test ckqa=1023) [place] [address] [id number] 06:20:00 Test Item Value Reference Range Comments PHOSPHORUS (BEAKER) (test ntci=004) 1.7 mg/dL 2.3-4.7 [id number] 06:20:00 Test Item Value Reference Range Comments MAGNESIUM (BEAKER) (test rclh=675) 1.7 mg/dL 1.6-2.6 BASIC METABOLIC [id number] 06:20:00 Test Item Value Reference Range Comments SODIUM (BEAKER) (test 138 meq/L 136-145 bdrt=359) POTASSIUM (BEAKER) (test 3.9 meq/L 3.5-5.1 luea=203) CHLORIDE (BEAKER) (test 110 meq/L 98-107 ltjh=017) CO2 (BEAKER) (test 21 meq/L 22-29 ujmr=494) BLOOD UREA NITROGEN 26 mg/dL 7-21 (BEAKER) (test fdnc=514) CREATININE (BEAKER) (test 1.71 mg/dL 0.57-1.25 nlun=603) GLUCOSE RANDOM (BEAKER) 97 mg/dL 70-105 (test zott=555) CALCIUM (BEAKER) (test 8.6 mg/dL 8.4-10.2 kiwx=988) EGFR (BEAKER) (test 38 mL/min/1.73 sq m ESTIMATED GFR IS NOT jnao=3975) ACCURATE CREATININE CLEARANCE IN PREDICTING GLOMERULAR FILTRATION RATE. ESTIMATED GFR IS NOT APPLICABLE FOR DIALYSIS PATIENTS. Specimen slightly ictericHEPATIC FUNCTION [id number] 06:20:00 Test Item Value Reference Range Comments TOTAL PROTEIN (BEAKER) (test aycd=901) 5.8 gm/dL 6.0-8.3 ALBUMIN (BEAKER) (test ajxg=7140) 2.9 g/dL 3.5-5.0 BILIRUBIN TOTAL (BEAKER) (test izzn=077) 3.6 mg/dL 0.2-1.2 BILIRUBIN DIRECT (BEAKER) (test oues=250) 2.8 mg/dL 0.1-0.5 ALKALINE PHOSPHATASE (BEAKER) (test lsqp=458) 125 U/L 40-150 AST (SGOT) (BEAKER) (test uatl=190) 39 U/L 5-34 ALT (SGPT) (BEAKER) (test ozfb=089) 54 U/L 6-55 Specimen slightly ictericPROTHROMBIN [id number] 05:55:00 Test Item Value Reference Range Comments PROTIME (BEAKER) (test jkef=751) 15.3 seconds 11.7-14.7 INR (BEAKER) (test wvpo=081) 1.2 <=5.9 RECOMMENDED COUMADIN/WARFARIN INR THERAPY RANGESSTANDARD DOSE: 2.0 - 3.0 Includes: PROPHYLAXIS forvenous thrombosis, systemic embolization; TREATMENT for venous thrombosis and/or pulmonary embolus.HIGH RISK: Target INR is 2.5-3.5 for patients with mechanical heart valves.CBC W/PLT COUNT & AUTO [id number] 05:55:00 Test Item Value Reference Range Comments WHITE BLOOD CELL COUNT (BEAKER) (test pvxv=992) 4.6 K/ L 3.5-10.5 RED BLOOD CELL COUNT (BEAKER) (test fgcf=692) 3.17 M/ L 4.63-6.08 HEMOGLOBIN (BEAKER) (test porg=295) 10.0 GM/DL 13.7-17.5 HEMATOCRIT (BEAKER) (test rgrx=151) 31.8 % 40.1-51.0 MEAN CORPUSCULAR VOLUME (BEAKER) (test iopn=989) 100.3 fL 79.0-92.2 MEAN CORPUSCULAR HEMOGLOBIN (BEAKER) (test 31.5 pg 25.7-32.2 wary=245) MEAN CORPUSCULAR HEMOGLOBIN CONC (BEAKER) (test 31.4 GM/DL 32.3-36.5 vuun=724) RED CELL DISTRIBUTION WIDTH (BEAKER) (test 15.9 % 11.6-14.4 hsgv=118) PLATELET COUNT (BEAKER) (test zugx=303) 126 K/CU MM 150-450 MEAN PLATELET VOLUME (BEAKER) (test kmll=347) 11.9 fL 9.4-12.4 NUCLEATED RED BLOOD CELLS (BEAKER) (test 0 /100 WBC 0-0 baoh=229) NEUTROPHILS RELATIVE PERCENT (BEAKER) (test 70 % efjz=303) LYMPHOCYTES RELATIVE PERCENT (BEAKER) (test 15 % xxgy=618) MONOCYTES RELATIVE PERCENT (BEAKER) (test 6 % kvmj=205) EOSINOPHILS RELATIVE PERCENT (BEAKER) (test 7 % mpkt=433) BASOPHILS RELATIVE PERCENT (BEAKER) (test 1 % lrtv=792) NEUTROPHILS ABSOLUTE COUNT (BEAKER) (test 3.21 K/ L 1.78-5.38 xdos=674) LYMPHOCYTES ABSOLUTE COUNT (BEAKER) (test 0.70 K/ L 1.32-3.57 alyf=957) MONOCYTES ABSOLUTE COUNT (BEAKER) (test 0.29 K/ L 0.30-0.82 dboq=578) EOSINOPHILS ABSOLUTE COUNT (BEAKER) (test 0.33 K/ L 0.04-0.54 atan=188) BASOPHILS ABSOLUTE COUNT (BEAKER) (test 0.03 K/ L 0.01-0.08 gucd=603) IMMATURE GRANULOCYTES-RELATIVE PERCENT (BEAKER) 0 % 0-1 (test jrwt=5697)
== END 2019-01-04 18:13 | disposition home or self-care (01) ==
LOC: ER 16:12
PROC: 0JQ00ZZ Repair Scalp Subcutaneous Tissue and Fascia, Open Approach (ICD-10-PCS; principal; 2019-01-04)
DX: S01.01XA Laceration without foreign body of scalp, initial encounter (principal); S50.01XA Contusion of right elbow, initial encounter; W18.2XXA Fall in (into) shower or empty bathtub, initial encounter; Y93.89 Activity, other specified; Y92.9 Unspecified place or not applicable; Z23 Encounter for immunization; I10 Essential (primary) hypertension
CPT/HCPCS: 70450; 90471; 90714; 99285